=== PATIENT | female | born 1995 | race Caucasian/White ===

== ENCOUNTER 2020-02-16 18:11 | Outpatient (REF) | payer MEDICAID, SELFPAY ==
[2020-02-16 13:17] LABS: HCG Quant, Pregnancy < 1 mIU/mL (1-3)
== END 2020-02-16 18:31 ==
LOC: LBN 18:11
PROVIDERS: PCP Pediatrics; Visit Provider Nurse Practitioner Family
DX: N92.6 Irregular menstruation, unspecified (principal)
CPT/HCPCS: 84702

== ENCOUNTER 2020-05-20 09:54 | Outpatient (REF) | payer MEDICAID, SELFPAY ==
[2020-05-20 11:07] LABS: HCG Quant, Pregnancy < 1 mIU/mL (1-3)
== END 2020-05-20 10:14 ==
LOC: LBN 09:54
PROVIDERS: PCP Pediatrics; Visit Provider Nurse Practitioner Family
DX: N92.6 Irregular menstruation, unspecified (principal); Z32.00 Encounter for pregnancy test, result unknown
CPT/HCPCS: 84702

== ENCOUNTER 2020-12-01 11:16 | Emergency (ER) | payer MEDICAID, SELFPAY ==
[2020-12-01] VITALS (34 sets, daily range): BP systolic 99–130; BP diastolic 66–80; PULSE 74–97; RESP 18–20; TEMP 36.5–37.5; O2SAT 98–100
--- NOTE | 2020-12-01 11:25 | W.ED.GENAD ---
Discharge Plan Disposition Patient Disposition: HOME Condition: Stable Discharge Details Clinical Impression: Cellulitis of neck, Hypokalemia, Distal renal tubular acidosis, HANNY (acute kidney injury), Elevated hemoglobin A1c, Transaminitis Primary Care Provider: Charlie Cleary ED Provider: Rocio Jarvis Home Meds and New Rx's Prescriptions: New amoxicillin-pot clavulanate [Augmentin] 875-125 mg tablet 1 tab PO BID 6 Days Qty: 12 RF: 0 doxycycline hyclate 100 mg capsule 100 mg PO BID 6 Days Qty: 12 RF: 0 potassium chloride [K-Tab] 20 mEq tablet extended release 20 meq PO DAILY Qty: 14 RF: 0 Continued spironolactone 50 mg Tablet 50 mg PO DAILY RF: 0 Discontinued prenat.vits,edmar,[id number] Tablet 1 tab PO DAILY RF: 0 Discharge Instructions Instructions: Doxycycline (By mouth), Potassium Chloride (By mouth), Amoxicillin/Clavulanate Potassium (By mouth), Cellulitis (ED), Hypokalemia (ED), Diabetes and Nutrition (ED) Additional Instructions: The pain in your neck is consistent with a skin infection. Please take the Augmentin and the doxycycline as prescribed. Even if symptoms improve, please take the entire course. You may use Tylenol to help with your discomfort. Your potassium was notably low again today. This was replenished both orally and IV. I would like for you to begin a daily potassium supplement which was advised by nephrology. Please keep your upcoming nephrology appointment to discuss the renal tubular acidosis further. You also need to begin your baking soda regimen of 1 teaspoon/day once again and increase your potassium in your diet. You have an acute kidney injury. Please continue to encourage water intake. This will need to be rechecked this week. Your glucose and your A1c are both elevated which is consistent and concerning for diabetes. Referral to special educator has been sent. Please try to reduce sugar and carbohydrate intake. Exercise is information on the diet. This may also help with weight loss which will further help with diabetes. As discussed, the primary care and I have decided to hold off on beginning any medication until you are further evaluated by them this week. You are also noted to have elevated liver enzymes. You do have a hepatitis panel pending. This could be associated with a multitude of factors. This will also need to be reassessed by your primary care. Referral for primary care has been sent, I have asked that you be rechecked for both your cellulitis as well as your electrolyte abnormalities in the next few days. If you develop any new or worsening symptoms please seek care urgently once again. Discharge Data Discharge Date/Time-TO BE ENTERED AT DEPARTURE: 12/01/20 16:18 Medical Decision Making Patient is a pleasant 25-year-old female, accompanied by mom, with chief complaint of left-sided neck pain. Reports the pain began yesterday. Since that time, has been noticing increased discomfort and spreading of the pain. States it started as a spider bite. Reports that now in his spread laterally on the neck. Is having severe discomfort with any type of range of motion of the neck. No fevers or chills. No difficulty swallowing although she states that tipping her head up to drink is difficult. Has not had episode like this historically. Unclear past medical history, states she has a kidney disease, does not know what medications she is on. Reports that her kidney function is normal. Receives her care at [facility]. On exam, patient appears. Vital signs are stable. Patient is afebrile. She has an indurated area of erythema along the posterior lateral aspect of the neck that is approximately 8 cm long. At the most medial aspect of this, which is lateral to midline, patient does have a small opening appears to have been draining. Area was explored with US, no fluid collection to suggest abscess was identified. Concerned for where the infection my track. Will treat pain, obtain CT for further evaluation. Will also obtain baseline labs. Contacted by lab, K+ 2.2. Patient states that she has had hypokalemia histrocially and that this is attributed to her known kidney disease. Will correct hypokalemia. Will obtain ECG and consult with UV. Patient does not appear systemically ill. WBC sigfniciant for leukocytosis, WBC of 16. Creatinine 1.4, no previous for comparison. She states she receives care at [facility] but plans to transition care to here. Will request these records and scan into chart. She has transaminitis, glucose of 230. Patient states she had gestational diabetes. Delivered baby 1 year ago, states she has not been checked since then. Will add A1c Contacted [facility], they reviewed chart. Patient has hx of distal renal rubular acidosis. Will obtain VBG. Waiting for consultation from nephrology. ECG reviewed by Dr. Ward. He advises NSR, rate 84 with no acute abnormalities. VBG has pH 7.2. Patient is not tachypnic, appears comfortable. Discussed findings with ehpatient. She feels that this is chronic. Would like d/c to home ultimately as she has a young child at home. She lives with sigfnicant other. Consulted with Dr. Lieberman at [facility]. We discussed patients history, presentation, labs including abnormalities noted thus far. She advises that the patient diagnosed with a distal renal tubular acidosis. She advised the patient should be taking at least half a teaspoon of baking soda daily, as prescribed 50 mg spironolactone encouraged to have high potassium diet. She did advise that we could have the patient continue on a potassium supplementation. Patient is scheduled to see her assistant oceanographer, Dr. Soto, on December 03. She reports that in May 2020, patient did have a glucose of 202 at outside facility and a creatinine of 1.2. It is reassuring she believes that the patient's current presentation is likely her baseline is a chronic issue for her. She does not believe that any urgent intervention was warranted at this time. I discussed this with the patient. Patient has not been taking the baking soda as prescribed. She has been taking the spironolactone. Self reports that the her diet is not what it should be. She does report that she had gestational diabetes. Did not have any diabetic testing after delivery of her child a year ago. Is actively trying to conceive. A1c is elevated at 9.2. She states that while she was she did meet with the diabetic counselor but has not continued with this. Consulted with local primary care. We discussed presentation. Patient has cellulitis. Willchange antibiotics to something more renal protective. We discussed starting the patient on diabetic medication, will hold off at this time witih her other complications. Chart review from [facility] shows that patient has had elevated glucose since that time. This appears to be chronic and unchanged. Plan is for patient to be seen this week. I have asked care management to ensure close f/u. CT reviewed by radiologist: FINDINGS: Paranasal sinuses: Fluid and membrane thickening in the ethmoid sinuses and maxillary sinuses. Nasopharynx: Unremarkable. Oropharynx: Unremarkable. No significant tonsillar enlargement. Hypopharynx: Unremarkable. Larynx: Unremarkable. Normal epiglottis. Retropharyngeal space: Unremarkable. Submandibular/Parotid glands: Normal. Glands are normal in size. Thyroid: Normal. No enlarged or calcified nodules. Lymph nodes: There are normal-sized lymph nodes on both sides of the neck but they are slightly larger on the left, consistent with reactive change. Trachea: Visualized trachea is unremarkable. Lungs: Unremarkable as visualized. Bones/joints: Unremarkable. No acute fracture. Soft tissues: Subcutaneous and deep soft tissue edema in the left posterior neck at about the level of C2 through C4. No fluid collection is identified. More focal area of enhancing soft tissue thickening in the deep myofascial plane of the left occiput put best seen on axial series 4, image 504 and sagittal series 6, image 27, coronal series 5, image 63. This involves an area measuring approximately 1.5 by 0.6 by 1.1 cm. This is likely a more focal superficial lymph node. Other findings: Images are degraded by motion. IMPRESSION: 1. Soft tissue edema without fluid collection in the left posterior neck with normal-sized bilateral lymph nodes, slightly larger on the left consistent with reactive lymphadenopathy 2. Mild maxillary and ethmoid sinusitis Will transition patient to PO antibiotics, will use Doxycycline and Augmentin. Would like patient reassessed in the next 2-3 days. Stric t return precautions given. For her hypokalemia, she received 40mg PO and 20 IV. Will continue her on daily replenishment. She will continue spironolactone. Will begin 1tsp of baking soda a day. Potassium rich diet. Transaminitis, hepatitis panel pending. Patient is at low risk. No hx of IVDU. Drinks on special occassions. Diabetes, discussed dietary changes. She will f/u with PCP this week to discuss further. HAve referred to special educator as well. Acute kidney injury. [place] has had elevated creatinine based on chart review. Encouraged hydration and close f/u. No acute change in this. [place] was given strict return precautions. She needs to be reevaluated, particularly regarding her infection, in the next few days. All of her questions and concerns were addressed, she is in agreement with this plan. HPI General Mode of arrival: ambulatory. Date/Time Provider Initiated Documentation: 12/01/20 11:25. Limitations to Documentation: no limitations. Information obtained by: patient, family (mom) and RN notes reviewed. History of Present Illness 25 year old F presents to the emergency department with the chief complaint of spider bite on neck, described as severe, with intensity rated at 8. Quality is described as aching, and is localized to the neck. Patient reports no radiation. Patient started experiencing this day(s) (2) and it has been constant. No relieving factors improve symptom(s), No exacerbating factors reported . Patient notes no other symptoms., rash (erythema on neck) and other (intermittent muscle cramps in hands); denies chest pain, fever/chills, nausea/vomiting, shortness of breath and weakness. Patient did receive the following treatments prior to arrival, none Related Data Home Medications Medication Instructions Recorded Confirmed amoxicillin-pot clavulanate 1 tab PO BID 6 Days #12 tab 12/01/20 [Augmentin] doxycycline hyclate 100 mg PO BID 6 Days #12 cap 12/01/20 potassium chloride [K-Tab] 20 meq PO DAILY #14 tab 12/01/20 spironolactone 50 mg PO DAILY 12/01/20 12/01/20 Previous Rx's Medication Instructions Recorded amoxicillin-pot clavulanate 1 tab PO BID 6 Days #12 tab 12/01/20 [Augmentin] doxycycline hyclate 100 mg PO BID 6 Days #12 cap 12/01/20 potassium chloride [K-Tab] 20 meq PO DAILY #14 tab 12/01/20 Allergies Allergy/AdvReac Type Severity Reaction Status Date / Time No Known Allergies Allergy Verified 12/01/20 11:24 General Stated Complaint: Cellulitis BHASKAR: 4 Review of Systems Constitutional Constitutional: Reports as per HPI, Reports chills, Denies fever(s) and Denies headache(s) Eyes Eyes: Reports as per HPI, Denies eye discharge and Denies irritation ENT Ears, Nose, Mouth, and Throat: Reports as per HPI and Denies headache(s) Cardiovascular Cardiovascular: Reports as per HPI, Denies chest pain and Denies dyspnea Respiratory Respiratory: Reports as per HPI and Denies dyspnea Gastrointestinal Gastrointestinal: Reports as per HPI, Denies abdominal pain, Denies change in bowel habits, Denies nausea and Denies vomiting Integumentary/Breasts Skin/Breast: Reports as per HPI Neurologic Neurologic: Reports as per HPI and Denies headache(s) [facility] Surgical History Previous section 11/01/19 for breech Family History Father Well adult Mother Well adult Social History Smoking/Tobacco Use Status: Never Smoking risk assessment performed?: Yes Alcohol Intake: never Substance use type: does not use Exam Const General: cooperative, healthy appearing, uncomfortable, no acute distress, well developed and well groomed Nutritional Appearance: well nourished and overweight Orientation: alert and awake [facility] Head: normal to inspection, normocephalic and atraumatic Ears: hearing grossly normal bilaterally and external ears normal Face and sinus: normal facial exam Mouth: oral mucosae normal, lip normal, tongue normal, oropharynx normal and mucous membranes dry Teeth and gingiva: dentition normal Throat: posterior oropharynx normal, tonsils normal and uvula midline Eyes General: appearance normal, both eyes and all related structures Neck Neck: not normal to visual inspection, limited ROM (limited secondary to pain), no lymphadenopathy and no meningeal signs Neck images: 1. area of induration and erythema. Medially, there is a small opening that is not draining. No midline pain. ROM is limited secondary to pain. No lymphadenopathy Resp Effort & Inspection: normal respiratory effort, able to speak in complete sentences and no respiratory distress Auscultation: clear to auscultation bilaterally, no rales, no rhonchi and no wheezes Cardio Rate: regular rate Rhythm: regular rhythm Heart Sounds: S1 normal and S2 normal Skin General skin exam: erythema and induration Neuro General: patient alert and patient awake Cognition: normal cognition Speech: speech normal Gait: normal gait Psych Appearance: grossly normal and well kempt Mental Status: mental status grossly normal Speech and Movement: speech and movement normal Course Vital Signs Vital signs: Vital Signs Temperature 36.5 C 12/01/20 11:21 Pulse 97 H 12/01/20 11:21 Respiratory Rate 20 12/01/20 11:21 Blood Pressure 130/80 12/01/20 11:21 Pulse Oximetry 98 12/01/20 11:21 Temperature 36.5 C 12/01/20 11:21 Temperature Source Skin 12/01/20 11:21 Pulse 97 H 12/01/20 11:21 Respiratory Rate 20 12/01/20 11:21 Respiratory Effort Non-Labored 12/01/20 11:24 Blood Pressure 130/80 12/01/20 11:21 Blood Pressure Position Sitting 12/01/20 11:21 Pulse Oximetry 98 12/01/20 11:21 Oxygen Delivery Method Room Air 12/01/20 11:21 Oxygen Flow Rate 0 12/01/20 11:21 Pain Level 8 12/01/20 11:21
--- NOTE | 2020-12-01 11:30 | DI.CT_ITS ---
Exam(s) CT NECK W EXAM: CT NECK W CLINICAL HISTORY: infection left posterior neck. TECHNIQUE: Imaging Protocol: Axial computed tomography images with coronal and sagittal reformatted images were created and reviewed. CONTRAST MATERIAL: Intravenous: Omnipaque 350 Contrast volume:100 mL COMPARISON: No exams were available for comparison FINDINGS: The examination is limited due to patient motion artifact. Orbits and orbital soft tissues: Within normal limits. Visualized paranasal sinuses: There is opacification of a few ethmoid air cells. There is a small a mount of fluid in the maxillary sinuses bilaterally. The remaining visualized paranasal sinuses and mastoid air cells are clear. Nasopharynx: Within normal limits. Oropharynx: Within normal limits. Hypopharynx: Within normal limits. Larynx: Within normal limits. Retropharyngeal space: Within normal limits. Parotids/submandibular: Within normal limits. Thyroid gland: Within normal limits. Lymphadenopathy: Mildly enlarged lymph nodes in the left neck which are likely reactive. This includ es an enhancing lymph node in the posterior left neck. Trachea: Within normal limits. Lung apices: Within normal limits. Bones: Within normal limits. Carotids/Jugular: Within normal limits. Soft tissues: There is mild infiltration of the soft tissues of the posterior left neck. No focal fluid collection is seen to suggest an abscess. There is mild thickening of the skin. This likely r eflects cellulitis. IMPRESSION: 1. Cellulitis of the posterior left neck. No evidence of abscess. 2. Maxillary and ethmoid sinusitis. RADIATION DOSE DELIVERED: 550.99mGy.cm Total DLP 550.99mGy.cm Total DLP DATA REPOSITORY: All CT scans at this facility are submitted to the National Radiology Data Registry (NRDR) Dose Index Registry (DIR) with the [employer] ([employer]). RADIATION OPTIMIZATION: All CT scans at this facility use at least one of these dose optimization te chniques: automated exposure control; mA and/or kV adjustment per patient size (includes targeted exa ms where dose is matched to clinical indication); or iterative reconstruction.
[2020-12-01] MEDS: Normal Saline 1,000 ML 1000 ML IV (12:06)
[2020-12-01 12:10] LABS: Lactate 0.9 mmol/L (0.6-1.4)
[2020-12-01] MEDS: Sulfameth/Trimeth DS TAB 1 TAB PO (12:11)
[2020-12-01] MEDS: ceFAZolin 1 GM/50 ML BAG IVPB (12:12)
[2020-12-01 12:13] LABS: Abs Immature Grans 0.09 10^3/uL (0.0-0.06); Absolute Lymphocyte Count 1.97 10^3/uL (1.2-3.4); Absolute Monocyte Count 1.09 10^3/uL (0.1-0.8); Basophils % 0.4; Eosinophils % 0.6; HCT 44.6 % (36.0-46.0); Immature Grans % 0.5; MCH 28.1 pg (27.0-33.0); MCHC 33.6 % (32.0-36.0); MCV 83.7 fL (80-95); MPV 9.5 fL (8.0-11.0); Monocytes % 6.6; Neutrophils % 79.9; Nucleated RBC 0 %; Platelet Count 275 10^3/uL (130-400); RBC 5.33 10^6/uL (3.93-5.22); RDW 15.6 % (11.7-14.6); RDW-SD 46.7 fL; WBC 16.44 10^3/uL (4.4-10.8)
[2020-12-01 12:16] LABS: Absolute Basophil Count 0.07 10^3/uL (0.0-0.2); Absolute Neutrophil Count 13.14 10^3/uL (1.2-6.7)
[2020-12-01] MEDS: Ketorolac 30 MG/ML VIAL IVP (12:27)
--- NOTE | 2020-12-01 12:30 | RT.EKG_ITS ---
APPROVED REPORT Exam: Resting ECG Reason for Exam: hypokalemia Patient Location: E HR:84 bpm ECG Measurements Heart Rate 84 AXIS MO 185 P 74 QRSd 90 QRS 60 QT 385 T 40 QTc 456 Conclusion Sinus rhythm...normal P axis, V-rate 60- 99
[2020-12-01 12:35] LABS: ALT 118 U/L (14-59); AST 58 U/L (15-37); Albumin 3.8 g/dL (3.4-5.0); Alkaline Phosphatase 154 U/L (46-116); Anion Gap 16.7 mmol/L (3-11); BUN 13 mg/dL (7-18); Bilirubin, Total 0.6 mg/dL (0.2-1.0); CO2 16.3 mmol/L (21.0-32.0); CREATININE 1.4 mg/dL (0.55-1.02); Calcium 8.9 mg/dL (8.5-10.1); Chloride 105 mmol/L (98-107); Estimated GFR 45.45 (mL/min/1.73m2); Glucose 230 mg/dL (74-106); Sodium 138 mmol/L (136-145); Total Protein 8.7 g/dL (6.4-8.2)
[2020-12-01 12:37] LABS: Potassium 2.2 mmol/L (3.5-5.1)
[2020-12-01 12:57] LABS: BE (Venous) -14 mmol/L (-2-3); HCO3 (Venous) 14 mmol/L (23-28); O2 Sat (Venous) 48 %; TCO2 (Venous) 14 mmol/L (24-29); pCO2 (Venous) 37 mmHg (41-51); pO2 (Venous) 27 mmHg
[2020-12-01] MEDS: Potassium Chloride 20 MEQ TABCR 40 MEQ PO (13:09)
[2020-12-01 13:25] LABS: Hemoglobin A1C 9.2 % (<5.7)
[2020-12-01] MEDS: POTASSIUM CHLORIDE 20 MEQ/100 ML BAG 50 MEQ IVPB (13:41)
--- NOTE | 2020-12-01 13:57 | NUR.NOTE ---
Nursing Note: BHASKAR changed to level 2--low potassium with infusion and monitoring.
[2020-12-01] MEDS: Omnipaque 350 MG/ML 100 ML BTL IV (14:00)
[2020-12-01] MEDS: Normal Saline - Diluent 50 ML VIAL IV (14:00)
[2020-12-01] MEDS: Normal Saline Flush 10 ML SYR IVP (14:02)
[2020-12-01] MEDS: Normal Saline 1,000 ML 150 ML IV (14:07)
[2020-12-01 14:51] LABS: ALT 104 U/L (14-59); AST 51 U/L (15-37); Albumin 3.4 g/dL (3.4-5.0); Alkaline Phosphatase 131 U/L (46-116); Bilirubin, Direct 0.1 mg/dL (0.0-0.2); Bilirubin, Total 0.4 mg/dL (0.2-1.0); Total Protein 7.6 g/dL (6.4-8.2)
--- NOTE | 2020-12-01 14:52 | DI.VRAD_ITS ---
PROCEDURE INFORMATION: Exam: CT Neck With Contrast Exam date and time: 12/01/2020 11:49 AM Age: 25 years old Clinical indication: Other: Infection left posterior neck TECHNIQUE: Imaging protocol: Computed tomography images of the neck with contrast. Contrast material: OMNIPAQUE 350; Contrast volume: 100 ml; Contrast route: INTRAVENOUS (IV); COMPARISON: No relevant prior studies available. FINDINGS: Paranasal sinuses: Fluid and membrane thickening in the ethmoid sinuses and maxillary sinuses. Nasopharynx: Unremarkable. Oropharynx: Unremarkable. No significant tonsillar enlargement. Hypopharynx: Unremarkable. Larynx: Unremarkable. Normal epiglottis. Retropharyngeal space: Unremarkable. Submandibular/Parotid glands: Normal. Glands are normal in size. Thyroid: Normal. No enlarged or calcified nodules. Lymph nodes: There are normal-sized lymph nodes on both sides of the neck but they are slightly larger on the left, consistent with reactive change. Trachea: Visualized trachea is unremarkable. Lungs: Unremarkable as visualized. Bones/joints: Unremarkable. No acute fracture. Soft tissues: Subcutaneous and deep soft tissue edema in the left posterior neck at about the level of C2 through C4. No fluid collection is identified. More focal area of enhancing soft tissue thickening in the deep myofascial plane of the left occiput put best seen on axial series 4, image 504 and sagittal series 6, image 27, coronal series 5, image 63. This involves an area measuring approximately 1.5 by 0.6 by 1.1 cm. This is likely a more focal superficial lymph node. Other findings: Images are degraded by motion. IMPRESSION: 1. Soft tissue edema without fluid collection in the left posterior neck with normal-sized bilateral lymph nodes, slightly larger on the left consistent with reactive lymphadenopathy 2. Mild maxillary and ethmoid sinusitis Dictated and Authenticated by: Isabella Falk MD. Ordering:JORDANA Chan MD
--- NOTE | 2020-12-01 15:56 | NUR.NOTE ---
Nursing Note: Referral given to Care Management to get an appt with the clinical unit educator. Referral given to Care Management for follow up within 2 - 3 days for cellulitis neck/acidosis/hypokalemia/acute kidney injury/transaminitis/new dx diabetes with a new PCP. Amanda Alfaro
[2020-12-01] MEDS: Doxycycline Hyclate 100 MG, 2 CAPS/BTL PO (16:08)
[2020-12-01] MEDS: Potassium Chloride 20 MEQ TABCR PO (16:09)
[2020-12-01] MEDS: Amox. 875/Clav. 125, 2 TABS/BTL 1 TAB PO (16:09)
[2020-12-03 11:27] LABS: Hepatitis A Antibody IgM Negative (Negative); Hepatitis B Core Antibody Negative (Negative); Hepatitis B surface Ag Negative (Negative); Hepatitis C Ab w Rflx HCV PCR Negative (Negative)
== END 2020-12-01 16:18 | disposition home or self-care (01) ==
PROVIDERS: Emergency Provider Physician Assistant; PCP Pediatrics
DX: S10.86XA Insect bite of other specified part of neck, initial encounter (principal); L03.221 Cellulitis of neck; W57.XXXA Bitten or stung by nonvenomous insect and other nonvenomous arthropods, initial encounter; N25.89 Other disorders resulting from impaired renal tubular function; N17.9 Acute kidney failure, unspecified; E87.6 Hypokalemia; R73.09 Other abnormal glucose; R74.01 Elevation of levels of liver transaminase levels
CPT/HCPCS: 36415; 70491; 80053; 80076; 81025; 82805; 86704; 86709; 86803; 87340; 93005; 96361; 96365; 96366; 96367; 96375; 99285; 83036; 83605; 85025; 93010; 99284; J0690; J1885; J3480; J3490

== ENCOUNTER 2020-12-04 11:29 | Observation (INO) | payer MEDICAID, SELFPAY ==
[2020-12-04] VITALS (11 sets, daily range): BP systolic 91–127; BP diastolic 54–89; PULSE 75–94; RESP 15–24; TEMP 36.3–36.8; O2SAT 97–100; BMI 33.5
--- NOTE | 2020-12-04 11:43 | HPE_ITS ---
Date of service: 12/04/20 Time of Service: 11:43 Assessment and Plan Assessment and plan (1) Cellulitis of neck: Status: Acute (2) Hypokalemia: Status: Acute (3) Distal renal tubular acidosis: Status: Acute (4) HANNY (acute kidney injury): Status: Acute (5) Elevated hemoglobin A1c: Status: Acute (6) Neck abscess: Status: Acute Assessment and plan: Patient is being admitted to the hospital. -She will be started on antibiotics. -She will need to go to the OR for incision and drainage. Informed consent is obtained explaining risks and benefits of the procedure including but not limite d to: Bleeding, infection, pneumonia, blood clots, complications of anesthesia. It will leave a scar. We will need to pack a new dressing changes and heal by secondary intent. -We also need to get her blood sugars under better control. -We will address her electrolyte abnormalities and follow her kidney issues History of Present Illness Consults Consult date: 12/04/20 Narrative: ED Visit Note PATIENT NAME: Odalis Alatorre #: [id number] ADMITTING PROVIDER: Rocio Jarvis [facility] #: [id number] PRIMARY CARE PROVIDER:JACKSON MARKS MD DATE OF ADMIT: 12/01/20 : 1995 Discharge Plan Disposition Patient Disposition: HOME Condition: Stable Discharge Details Clinical Impression: Cellulitis of neck, Hypokalemia, Distal renal tubular acidosis, HANNY (acute kidney injury), Elevated hemoglobin A1c, Transaminitis Primary Care Provider: Jackson Marks ED Provider: Rocio Jarvis Home Meds and New Rx's Prescriptions: New amoxicillin-pot clavulanate [Augmentin] 875-125 mg tablet 1 tab PO BID 6 Days Qty: 12 RF: 0 doxycycline hyclate 100 mg capsule 100 mg PO BID 6 Days Qty: 12 RF: 0 potassium chloride [K-Tab] 20 mEq tablet extended release 20 meq PO DAILY Qty: 14 RF: 0 Continued spironolactone 50 mg Tablet 50 mg PO DAILY RF: 0 Discontinued prenat.vits,edmar,uav-[id number]-frpmk Tablet 1 tab PO DAILY RF: 0 From ED 12/01 Patient was seen in the office today regarding abscess on her left neck. And has not improved since she was seen in the ER. She said she has been having fever and chills at home. She has been taking her antibiotics faithfully. It is sore and painful. She is running a temperature at home. Her A1c is 9.2. [facility] internal has elected not to treat this until her abscess is resolved. However I think this is contributing to the nonhealing/continued infection/ abscess, and needs to be addressed. She also has renal tubular acidosis and is on spironolactone for this. She saw her senior medical transcriptionist at [facility] via telehealth for this. She has no known drug allergies. Medications include: Augmentin, doxycycline, severe lactone. She is a non-smoker. Her only prior surgery is a . She had no problems with anesthesia. She has not had anything to eat or drink today. Review of Systems Unobtainable due to (Review of systems as stated in HPI. All other review of systems are negati) Constitutional Constitutional: Reports as per HPI, Reports system reviewed and no additional complaints, except as documented, Reports anorexia, Reports body ache(s), Reports chills, Reports difficulty sleeping, Reports fatigue, Reports fever(s), Reports headache(s), Reports lethargy, Reports malaise, Denies poor appetite, Denies weakness and Reports weight loss Comments: Review of system is as stated in HPI. Please disregard all other sangeeta ckmarks in review of systems in the computer Eyes Eyes: Reports as per HPI, Reports system reviewed and no additional complaints, except as documented and Denies change in vision ENT Ears, Nose, Mouth, and Throat: Reports system reviewed and no additional complaints, except as documented, Reports as per HPI, Denies change in voice, Denies dental pain, Denies dysphagia, Denies dizziness, Denies facial pain, Reports headache(s) and Denies odynophagia Cardiovascular Cardiovascular: Reports as per HPI, Reports system reviewed and no additional complaints, except as documented, Denies chest pain, Denies chest pain with activity, Denies syncope, Denies leg edema and Denies dyspnea Respiratory Respiratory: Reports as per HPI, Reports system reviewed and no additional complaints, except as documented, Denies chest congestion, Denies cough, Denies pain with cough and Denies dyspnea Gastrointestinal Gastrointestinal: Reports as per HPI, Reports system reviewed and no additional complaints, except as documented, Denies abdominal pain, Denies bloating, Denies change in bowel habits, Denies change in stool character, Denies constipation, Denies cramping, Denies dysphagia, Denies early satiety, Denies heartburn, Denies diarrhea, Denies nausea, Denies odynophagia and Denies vomiting Musculoskeletal Musculoskeletal: Reports system reviewed and no additional complaints, except as documented, Reports as per HPI, Denies abnormal gait, Denies arthralgias and Denies muscle weakness Integumentary/Breasts Skin/Breast: Reports system reviewed and no additional complaints, except as documented, Reports as per HPI, Denies changing lesions, Denies new lesions and Denies jaundice Neurologic Neurologic: Reports system reviewed and no additional complaints, except as docu mented, Reports as per HPI, Denies abnormal speech, Denies abnormal gait, Denies dizziness, Denies syncope, Reports headache(s), Denies memory loss and Denies weakness Psychiatric Psychiatric: Reports system reviewed and no additional complaints, except as documented, Reports as per HPI, Denies change in appetite and Denies memory loss Endocrine Endocrine: Reports fatigue, Denies polydipsia and Denies polyuria Hematologic/Lymphatic Hematologic/Lymphatic: Reports system reviewed and no additional complaints, except as documented, Denies easy bleeding and Denies easy bruising Allergic/Immunologic Allergic/Immunologic: Denies system reviewed and no additional complaints, except as documented, Reports as per HPI and Denies urticaria PFSH Surgical History Previous section 11/01/19 for breech Family History Father Well adult Mother Well adult Social History Smoking/Tobacco Use Status: Never Smoking risk assessment performed?: Yes Alcohol Intake: never Substance use type: does not use Do you feel safe at home: Yes Do you feel safe in your relationship?: Yes Meds Allergies and Home Medications Allergies Allergy/AdvReac Type Severity Reaction Status Date / Time No Known Allergies Allergy Verified 12/04/20 10:28 Home Medications Medication Instructions Recorded Confirmed Type amoxicillin-pot clavulanate 1 tab PO BID 6 Days #12 tab 12/01/20 12/04/20 Rx [Augmentin] doxycycline hyclate 100 mg PO BID 6 Days #12 cap 12/01/20 12/04/20 Rx potassium chloride [K-Tab] 20 meq PO DAILY #14 tab 12/01/20 12/04/20 Rx spironolactone 50 mg PO DAILY 12/01/20 12/04/20 History Exam Const General: cooperative, healthy appearing, comfortable, no acute distress, well developed and well groomed Nutritional Appearance: average body habitus and well nourished Orientation: alert, awake and oriented x3 [facility] Head: normal to inspection, normocephalic and atraumatic Ears: hearing grossly normal bilaterally and external ears normal General nose exam: external nose normal Face and sinus: normal facial exam and sinuses nontender Mouth: oral mucosae normal, lip normal, tongue normal and moist mucous membranes Teeth and gingiva: dentition normal Other: 3x1 firm raised fluid collection on the left lateral aspect of the neck with surrounding erythema/edema. It is very tender. Ultrasound shows it is fluid-filled. Patient appears very uncomfortable Eyes General: appearance normal, both eyes and all related structures Conjunctivae: conjunctivae normal Sclera: sclerae normal Pupils: PERRL Neck Neck: normal visual inspection and full ROM Chest Chest: normal inspection of the chest Resp Effort & Inspection: normal respiratory effort, able to speak in complete sentences, no cough, no nasal flaring, not tachypneic and no use of accessory muscles Auscultation: clear to auscultation bilaterally, no rales, no rhonchi and no wheezes Cardio Jugular venous pressure: no JVD Rate: regular rate Rhythm: regular rhythm GI Inspection: normal to inspection, no edema and non-distended Palpation: soft, no masses, nontender and No ascites Auscultation: normal bowel sounds Skin General skin exam: no rashes or lesions noted Trauma: no lacerations or abrasions Neuro General: patient alert, patient oriented x3, oriented, gait normal, moves all extremities, no focal motor deficits and CN's II-XI intact bilaterally Cognition: normal cognition Speech: speech normal Gait: normal gait Motor: muscle tone normal throughout Extrem General: normal to inspection, full ROM and no clubbing, cyanosis or edema Psych Appearance: grossly normal and well kempt Mental Status: mental status grossly normal Speech and Movement: speech and movement normal Affect: normal affect Results Labs Result diagrams: 12/04/20 11:50 12/04/20 11:50 Last Vital Signs Temp 36.3 C L 12/04/20 11:37 Pulse 93 H 12/04/20 11:37 Resp 17 12/04/20 11:37 BP 127/89 12/04/20 11:37 Pulse Ox 99 12/04/20 11:37
[2020-12-04 11:59] LABS: Abs Immature Grans 0.16 10^3/uL (0.0-0.06); Absolute Basophil Count 0.07 10^3/uL (0.0-0.2); Absolute Neutrophil Count 14.75 10^3/uL (1.2-6.7); Basophils % 0.4; HCT 43.2 % (36.0-46.0); Immature Grans % 0.9; Lymphocytes % 9.6; MCH 27.5 pg (27.0-33.0); MCHC 32.4 % (32.0-36.0); MCV 84.9 fL (80-95); MPV 9.5 fL (8.0-11.0); Monocytes % 5.5; Neutrophils % 82.6; Nucleated RBC 0 %; Platelet Count 304 10^3/uL (130-400); RBC 5.09 10^6/uL (3.93-5.22); RDW 15.8 % (11.7-14.6); RDW-SD 48.5 fL; WBC 17.86 10^3/uL (4.4-10.8)
[2020-12-04 12:00] LABS: Absolute Eosinophil Count 0.18 10^3/uL (0.0-0.7); Absolute Lymphocyte Count 1.71 10^3/uL (1.2-3.4); Absolute Monocyte Count 0.98 10^3/uL (0.1-0.8)
[2020-12-04 12:10] LABS: Source Nasal/Nares
[2020-12-04 12:11] LABS: ALT 47 U/L (14-59); AST 16 U/L (15-37); Albumin 3.4 g/dL (3.4-5.0); Alkaline Phosphatase 127 U/L (46-116); Anion Gap 17.3 mmol/L (3-11); BUN 19 mg/dL (7-18); Bilirubin, Total 0.3 mg/dL (0.2-1.0); CO2 13.7 mmol/L (21.0-32.0); CREATININE 1.2 mg/dL (0.55-1.02); Calcium 9.9 mg/dL (8.5-10.1); Chloride 108 mmol/L (98-107); Glucose 200 mg/dL (74-106); Sodium 139 mmol/L (136-145); Total Protein 8.3 g/dL (6.4-8.2)
[2020-12-04 12:13] LABS: Potassium 2.9 mmol/L (3.5-5.1)
[2020-12-04 12:15] LABS: INR 1.1 (0.9-1.1); Prothrombin Time 11.3 sec (9.3-11.0)
[2020-12-04 12:22] LABS: HCG Qual (Serum) Negative
[2020-12-04] MEDS: Lactated Ringers 1,000 ML 100 ML IV ×2 (12:51→18:29)
[2020-12-04] MEDS: ceFAZolin 2 GM/50 ML BAG IVPB ×2 (12:52→20:25)
[2020-12-04] MEDS: ACETAMINOPHEN 1,000 MG/100 ML BTL 400 MG IVPB ×2 (12:52→20:25)
[2020-12-04] MEDS: Ondansetron 4 MG/2 ML VIAL IVP (12:56)
[2020-12-04] MEDS: Normal Saline Flush 10 ML SYR IVP ×3 (12:57→20:25)
[2020-12-04 12:58] LABS: Lactate 0.9 mmol/L (0.6-1.4)
[2020-12-04 13:06] LABS: COVID-19 PCR Negative (Negative)
[2020-12-04 13:08] LABS: C-Reactive Protein 5.95 mg/dL (0.0-0.3); Magnesium 2.3 mg/dL (1.8-2.4)
--- NOTE | 2020-12-04 14:06 | ANES.PREOP_ITS ---
General Info Date of Service Date Performed: 12/04/20 Height: 5 ft 4 in Weight: 88.451 kg Body Mass Index (BMI): 33.5 Surgical Procedure: Operation Date: 12/04/20 16:10 Proposed Procedures Side Surgeon p Incision and Debridement Left lateral neck abscess Left Edwina Roe DO Meds Allergies and Home Medications Allergies Allergy/AdvReac Type Severity Reaction Status Date / Time No Known Allergies Allergy Verified 12/04/20 10:28 Home Medication Medication Instructions Recorded amoxicillin-pot clavulanate 1 tab PO BID 6 Days #12 tab 12/01/20 [Augmentin] doxycycline hyclate 100 mg PO BID 6 Days #12 cap 12/01/20 potassium chloride [K-Tab] 20 meq PO DAILY #14 tab 12/01/20 spironolactone 50 mg PO DAILY 12/01/20 Current Visit Medications: Current Medications Generic Name Dose Route Start Last Admin Trade Name Freq PRN Reason Stop Dose Admin Dimethicone/Zinc Oxide 0 gm 12/04/20 11:29 Lori Protect Cream 142 Gm Tube TP PRN PRN Gabapentin 300 mg 12/04/20 15:00 Gabapentin 300 Mg Cap PO 12/04/20 15:01 NOW ONE Ringer's Solution 1,000 mls @ 100 mls/hr 12/04/20 11:30 12/04/20 12:51 IV 100 mls/hr INFUSION DILIA Administration Sodium Chloride 500 mls @ 0 mls/hr 12/04/20 11:29 Saline 500ml Bag IV PRN PRN As Directed Cefazolin Sodium/Dextrose 2 gm in 50 mls @ 100 mls/hr 12/04/20 12:00 12/04/20 12:52 Ancef Duplex IVPB 100 mls/hr Q6H DILIA Administration Acetaminophen 1,000 mg in 100 mls @ 400 mls/hr 12/04/20 12:00 12/04/20 14:02 Ofirmev IVPB Infused Q8H DILIA Infusion Potassium Chloride 10 meq in 100 mls @ 100 mls/hr 12/04/20 14:15 IVPB 12/04/20 18:14 Q1H DILIA IV Miscellaneous Supplies 1 each 12/04/20 11:30 Iv Access IV DIRECTED DILIA Morphine Sulfate 2 mg 12/04/20 11:41 Morphine 2 Mg/Ml Syr IVP Q1H PRN PRN Ondansetron HCl 4 mg 12/04/20 11:41 12/04/20 12:56 Ondansetron 4 Mg/2 Ml Vial IVP 4 mg Q6H PRN PRN Administration Sodium Chloride 10 ml 12/04/20 13:00 Normal Saline Flush 10 Ml Syr IVP PRN PRN PFSH Active Problems Active Problems: Problem Status Onset Code Neck abscess L02.11 Cellulitis of neck L03.221 Hypokalemia E87.6 Distal renal tubular acidosis N25.89 HANNY (acute kidney injury) N17.9 Elevated hemoglobin A1c R73.09 Transaminitis R74.01 Previous section Z98.891 Hx of ectopic Z87.59 Surgical History Surgical History Previous section 11/01/19 for breech Tobacco Smoking/Tobacco Use Status: Never Alcohol Alcohol Intake: never Substance Use Substance use type: does not use Vital Signs and Lab Results Vital Signs Most Recent Vital Signs in EMR: Most Recent Vital Signs Temp Pulse Resp BP Pulse Ox 36.6 C 93 H 17 127/89 99 12/04/20 13:09 12/04/20 13:09 12/04/20 13:09 12/04/20 13:09 12/04/20 13:09 Lab Results Result Diagrams: 12/04/20 11:50 12/04/20 11:50 Blood Type / Crossmatch: No Data to Display Complete Blood Count: White Blood Count 17.86 10^3/uL (4.4-10.8) H 12/04/20 11:50 12/04/20 Red Blood Count 5.09 10^6/uL (3.93-5.22) 12/04/20 11:50 12/04/20 Hemoglobin 14.0 g/dL (11.2-15.7) 12/04/20 11:50 12/04/20 Hematocrit 43.2 % (36.0-46.0) 12/04/20 11:50 12/04/20 Platelet Count 304 10^3/uL (130-400) 12/04/20 11:50 12/04/20 Venous Blood Lactate 0.9 mmol/L (0.6-1.4) 12/04/20 12:30 12/04/20 Complete Metabolic Panel: Sodium Level 139 mmol/L (136-145) 12/04/20 11:50 12/04/20 Potassium Level 2.9 mmol/L (3.5-5.1) L 12/04/20 11:50 12/04/20 Chloride Level 108 mmol/L (98-107) H 12/04/20 11:50 12/04/20 Carbon Dioxide Level 13.7 mmol/L (21.0-32.0) L 12/04/20 11:50 12/04/20 Blood Urea Nitrogen 19 mg/dL (7-18) H 12/04/20 11:50 12/04/20 Creatinine 1.2 mg/dL (0.55-1.02) H 12/04/20 11:50 12/04/20 Estimated GFR/1.73 m2 54.30 (mL/min/1.73m2) 12/04/20 11:50 12/04/20 Magnesium Level 2.3 mg/dL (1.8-2.4) 12/04/20 12:30 12/04/20 Calcium Level 9.9 mg/dL (8.5-10.1) 12/04/20 11:50 12/04/20 Albumin 3.4 g/dL (3.4-5.0) 12/04/20 11:12/04/20 Glucose Level 200 mg/dL (74-106) H 12/04/20 11:50 12/04/20 Hemoglobin A1c 9.2 % (<5.7) H 12/01/20 12:12/01/20 C-Reactive Protein 5.95 mg/dL (0.0-0.3) H 12/04/20 12:30 12/04/20 Liver Function Panel: Alanine Aminotransferase (ALT/SGPT) 47 U/L (14-59) 12/04/20 11:50 12/04/20 Aspartate Amino Transf (AST/SGOT) 16 U/L (15-37) 12/04/20 11:50 12/04/20 Coagulation Panel: INR International Normalized Ratio 1.1 (0.9-1.1) 12/04/20 11:50 12/04/20 Prothrombin Time 11.3 sec (9.3-11.0) H 12/04/20 11:50 12/04/20 Cardiac Panel: No Data to Display Arterial Blood Gas: No Data to Display Venous Blood Gas: Venous Blood pH 7.20 (7.31-7.41) L 12/01/20 12:55 12/01/20 Venous Blood Partial Pressure O2 27 mmHg 12/01/20 12:55 12/01/20 Venous Blood Partial Pressure CO2 37 mmHg (41-51) L 12/01/20 12:55 12/01/20 Venous Blood Oxygen Saturation 48 % 12/01/20 12:55 12/01/20 Venous Blood HCO3 14 mmol/L (23-28) L 12/01/20 12:55 12/01/20 Venous Blood Base Excess -14 mmol/L (-2-3) L 12/01/20 12:55 12/01/20 Venous Blood Total Carbon Dioxide 14 mmol/L (24-29) L 12/01/20 12:55 12/01/20 Pancreas Panel: No Data to Display Thyroid Panel: No Data to Display Infectious Disease: Coronavirus (COVID-19)(PCR) Negative (Negative) 12/04/20 12:05 12/04/20 Coronavirus 2019 Source Nasal/nares 12/04/20 12:05 12/04/20 Hepatitis B Surface Antigen Negative (Negative) 12/01/20 12:06 12/01/20 Hepatitis C Antibody Negative (Negative) 12/01/20 12:06 12/01/20 Blood Cultures: No Data to Display Toxicology Panel: No Data to Display Panel: Serum HCG, Qualitative Negative 12/04/20 11:50 12/04/20 Imaging and Studies Imaging and Studies EKG Summary: Sinus rhythm...normal P axis, V-rate 60- 99 Anesthesia Assessment and Plan Anesthesia History Personal History: No History of Anesthesia Complications Family History: No Family History of Anesthesia Complications Exercise Tolerance Exercise Tolerance: Metabolic Equivalents>4 Pertinent Negatives Pertinent Negatives: No Symptoms of GERD (Well controlled ), No Major Ca rdiovascular Symptoms or Complaints, No Major Pulmonary Symptoms or Complaints (Pt state she is recovering from cold ), No History of CVA/TIA and Other (Acute Tubular Acidosis, Elevated A1C, hypokalemia ) Cardiac & Pulmonary Exam Cardiac Exam: Normal S1/S2 Heart Sounds Pulmonary Exam: Clear Bilateral Breath Sounds Airway Exam Known Difficult Airway: No Mallampati Class: 3 Mouth Opening: Normal (> 3cm) Thyromental Distance: Less than 3 cm Neck Range of Motion: Full ROM Neck Circumference: Thick Teeth Condition: Normal Dentition ASA Classification ASA Score: ASA 2 Emergency Case?: Yes NPO Status NPO Status: NPO Clears >2 hours, Solids >8 hours Status Status: Negative HCG Anesthesia Plan Resuscitation Status: Full Code Anesthesia Technique: General Anesthesia Airway Planned: Endotracheal Tube Monitors Used: Standard Monitors Preoperative Comments:: Spoke to pt about plan for GA with natural airway or ETT dependent on positioning
[2020-12-04] MEDS: POTASSIUM CHLORIDE 10 MEQ/100 ML BAG 100 MEQ IVPB ×4 (14:17→18:58)
[2020-12-04] MEDS: Gabapentin 300 MG CAP PO (14:53)
[2020-12-04 14:59] LABS: Bilirubin Negative (Negative); Blood Moderate (Negative); Clarity Clear (Clear); Glucose Negative (Negative); Ketones Negative (Negative); Leukocyte Esterase Trace (Negative); Nitrite Negative (Negative); Urobilinogen 0.2 EU/dL (Up TO 0.2)
[2020-12-04 15:13] LABS: Bacteria Few HPF (Negative); C & S Indicated? Yes; Casts Negative LPF (Negative); Crystals Negative HPF (Negative); Epithelial Cells Few HPF (Negative); Mucus Negative (Negative); RBC 0-2 HPF (0-2); WBC 20-50 HPF (0-5)
--- NOTE | 2020-12-04 17:30 | W.PM.OP ---
Date of service: 12/04/20 Time of Service: 17:31 Operative Note Operative Note DATE OF PROCEDURE: 12/04/20 PRE-OP DIAGNOSIS: soft tissue abscess left enck POST-OP DIAGNOSIS: same PROCEDURE: I&D SURGEON: Edwina Roe ANESTHESIA TYPE: Local By Surgeon and General LMA/ETT Refer to Anesthesia Record ESTIMATED BLOOD LOSS: 10 PATHOLOGY: other COMPLICATIONS: None Patient was transported to: PACU Patient's condition: stable Procedure Description: [id number] Patient had been seen earlier in the office today for a soft tissue abscess and is being brought to the OR for incision and drainage. Ultrasound was done in the office some free fluid is noted. She is marked in preop. Informed consent is obtained explaining risks and benefits of the procedure including but not limited to: Bleeding, infection, pneumonia, blood clots, we will leave the scar. She will need to heal by secondary intent. She will need to do dressing/packing. Possible complications of anesthesia. And other unforetold complications. Patient is brought to the operating room suite. Anesthesia is admitted per the department of anesthesia. Patient is then placed in the right lateral decubitus position with all bony surfaces padded. Patient prepped and draped in usual sterile fashion using ChloraPrep scrub solution. Timeout is performed. She is getting preop Ancef. She does not give a history of MRSA or prior soft tissue infections. Her A1c is 9.6. 30 cc of quarter percent Marcaine with epi is used for local anesthetization. At the very most medial aspect of the incision there is a open draining sinus. This area is excised and the incision is carried laterally for approximately a 2 inch incision. Copious amount of purulent drainage is removed. Cultures are sent. A curette is used to excise the necrotic/nonviable tissue. It is confined to be subcutaneous tissues and does not involve the fascia or the muscle. Is irrigated with 3 L of saline. Electrocautery is used to provide hemostasis. It is packed with 1 inch packing material. Sterile dressing is applied. Patient tolerated procedure well without complication and transferred to recovery room in stable condition. The total size of the abscess is 10 x 5 x 3 cm.
--- NOTE | 2020-12-04 17:44 | W.ANESPOSTOP ---
Postoperative Evaluation Date, Time and Location Date Performed: 12/04/20 Time Performed: 17:44 Patient Location: PACU Vital Signs Most Recent Imported Vital Signs: Most Recent Vital Signs Temp Pulse Resp BP Pulse Ox 36.6 C 93 H 24 127/82 100 12/04/20 17:35 12/04/20 17:35 12/04/20 17:35 12/04/20 17:35 12/04/20 17:35 Pain Score Most Recent Pain Score: Most Recent Pain Score Pain Level 7 12/04/20 17:35 Assessment Mental Status: Awake (Alert & Oriented to Patient Baseline) Airway and Respiratory Function: Patent airway with normal (patient baseline) respiratory exam Cardiovascular Function: Hemodynamically Stable Hydration Status: Adequately Hydrated Nausea & Vomiting: No Nausea or Vomiting Pain: Pain is Moderate or Severe Postoperative Pain Management: Ongoing pain, patient will be managed as an inpatient Peripheral Nerve Block: Patient did not receive a nerve block
[2020-12-04] MEDS: Ketorolac 15 MG/ML VIAL IVP ×2 (18:27→23:54)
[2020-12-04] MEDS: VANCOMYCIN/WATER (PEG) 1.75 GM/350 ML BAG IVPB (18:28)
[2020-12-05] VITALS (7 sets, daily range): BP systolic 94–114; BP diastolic 60–77; PULSE 72–78; RESP 16–18; TEMP 36.4–36.9; O2SAT 96–100
[2020-12-05] MEDS: ceFAZolin 2 GM/50 ML BAG IVPB ×4 (02:31→20:31)
[2020-12-05] MEDS: Normal Saline Flush 10 ML SYR IVP ×3 (04:13→18:32)
[2020-12-05] MEDS: VANCOMYCIN/WATER (PEG) 1 GM/200 ML BAG IV ×3 (04:13→23:32)
[2020-12-05] MEDS: ACETAMINOPHEN 1,000 MG/100 ML BTL 400 MG IVPB ×3 (04:13→19:56)
[2020-12-05] MEDS: traMADol 50 MG TAB PO ×2 (05:06→16:14)
[2020-12-05] MEDS: Ketorolac 15 MG/ML VIAL IVP ×4 (06:27→23:32)
[2020-12-05] MEDS: Spironolactone 50 MG TAB PO (07:40)
[2020-12-05] MEDS: metFORMIN 500 MG TAB PO (07:40)
[2020-12-05] MEDS: Enoxaparin 40 MG/0.4 ML SYR SC (07:41)
[2020-12-05 11:02] LABS: Potassium 2.8 mmol/L (3.5-5.1)
[2020-12-05] MEDS: Potassium Chloride Liquid 20 MEQ PKT 40 MEQ PO (14:10)
--- NOTE | 2020-12-05 14:48 | INITIAL_ITS ---
- If Service Date Differs Date of service: 12/05/20 Time of Service: 14:48 Care Management Initial Assess REASON FOR HOSPITALIZATION:: Abscess on left side of neck. PAST MEDICAL HISTORY/PAST SURGICAL HISTORY:: Medical History: Neck abscess, cellulitis of neck, hypokalemia, distal renal tubular acidosis, HANNY (acute kidney injury), elevated hemoglobin A1c, transaminitis, and history of ectopic . Surgical History: Previous section (11/01/19 for breech). PREVIOUS FUNCTIONAL STATUS/SOCIAL/FAMILY SUPPORTS:: Tea is a 25 year old female who lives in [place] with her boyfriend, Elliot, and her 1 year old daughter. 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 Elliot works on a farm and Tea occasionally helps him out with farm chores. She also enjoys going for walks and kayaking. She names her mom and boyfriend as supports. Tea is independent at baseline. CURRENT FUNCTIONAL STATUS:: Tea is laying in bed watching television when CM comes to meet with her. She is pleasant and easily engages in conversation. She shares that she misses her daughter and does not like being away from her. She hopes to be discharged home today. ADVANCE DIRECTIVES:: None on file. Has patient been provided with info about the portal/API?: Yes Did the patient sign up for the portal?: Yes CODE STATUS:: Full Code INSURANCE COVERAGE / FINANCIAL ISSUES:: Medicaid. CURRENT HOME/COMMUNITY SERVICES/EQUIPMENT:: None. PRIMARY CARE PHYSICIAN:: Beatriz Dc MD. POTENTIAL DISCHARGE NEEDS:: Follow up appointments with PCP and surgeon and discharge plan of care. PATIENT/FAMILY EDUCATION NEEDS:: Discharge instructions regarding limitations, activity, and medications. Discuss Ask Me Three and self management. ANTICIPATED BARRIERS TO DISCHARGE:: No anticipated barriers. TRANSPORTATION:: Via private vehicle with family. PLAN:: Anticipate Tea will be discharged home with no services when medically cleared by provider. She will follow up with her PCP, surgeon, and discharge plan of care as directed. She will be driven home by family via private vehicle when ready. CM will continue to follow.
--- NOTE | 2020-12-05 16:08 | W.PM.PROGNOT ---
Date of Service Date of service: 12/05/20 Time of Service: 16:09 Assessment and Plan Assessment and plan (1) Neck abscess: Status: Acute Assessment and plan: Continue antibiotics local wound care awaiting wound cultures awaiting CALLY wound dressing--ordered (2) Hypokalemia: Status: Acute Assessment and plan: repleted today recheck tomorrow (3) Distal renal tubular acidosis: Status: Chronic (4) HANNY (acute kidney injury): Status: Acute (5) Elevated hemoglobin A1c: Status: Chronic Assessment and plan: started on Metformin by Dr. Roe Subjective Subjective Patient reports: feels better, still having pain and tolerating a regular diet Interval history since last seen: The patient is feeling better overall. Her sleep was interrupted by nursing overnight. She is eager to go home. She denies BLANDON, dizziness, shortness of breath, chest or abdominal pain. She is tolerating a regular diet. Exam Const General: cooperative, healthy appearing, comfortable and no acute distress Neck Neck images: 1. minimal wendy-incisional erythema; wound widely open and packed; overlying dressing changed Resp Effort & Inspection: normal respiratory effort and able to speak in complete sentences Auscultation: clear to auscultation bilaterally Cardio Rate: regular rate Rhythm: regular rhythm Heart Sounds: S1 normal and S2 normal GI Palpation: soft and nontender Neuro General: patient alert, patient awake and patient oriented x3 Cognition: normal cognition Speech: speech normal Psych Appearance: grossly normal Mental Status: mental status grossly normal Speech and Movement: speech and movement normal Mood: congruent mood Affect: normal affect Attitude: cooperative Thought Process: normal Thought Content: normal Insight: insight good Judgment: judgment good Objective Last Vital Signs Temp 98.1 F 12/05/20 15:42 Pulse 72 12/05/20 15:42 Resp 17 12/05/20 15:42 BP 100/61 12/05/20 15:42 Pulse Ox 100 12/05/20 15:42 Laboratory Results - last 24 hr 12/05/20 10:44 Potassium 2.8 L*
--- NOTE | 2020-12-05 16:39 | PHA.REVIEW ---
Pharmacy Admission Review - Admission Clinical Review Neck abscess (Acute) Cellulitis of neck (Acute) Hypokalemia (Acute) HANNY (acute kidney injury) (Acute) No Known Allergies Allergy (Verified 12/04/20 10:28) Resuscitation Status Full Code Height 5 ft 4 in Weight 88.451 kg - Renal Dosing Renal Dosing: BUN 19 mg/dL (7-18) H D 12/04/20 11:50 Creatinine 1.2 mg/dL (0.55-1.02) H 12/04/20 11:50 Medications needing adjustments: Reviewed List of meds needing interventions: eCrCl 61.34 ml/min; renal tubular acidosis, HANNY - monitor, rechecking scr tomorrow AM along with vanco trough - Anticoagulation Anticoagulation: Hgb 14.0 g/dL (11.2-15.7) 12/04/20 11:50 Hct 43.2 % (36.0-46.0) 12/04/20 11:50 Plt Count 304 10^3/uL (130-400) 12/04/20 11:50 INR 1.1 (0.9-1.1) 12/04/20 11:50 Creatinine 1.2 mg/dL (0.55-1.02) H 12/04/20 11:50 DVT Prohphylaxis: Reviewed Medications: Enoxaparin - Opiate Usage Evaluate Pain Scale/Pains Meds: Reviewed Scheduled Bowel Reg ordered if on Opiates?: No (will notify ) - Relevant Labs Sodium 139 mmol/L (136-145) 12/04/20 11:50 Potassium 2.8 mmol/L (3.5-5.1) L* 12/05/20 10:44 Chloride 108 mmol/L (98-107) H 12/04/20 11:50 Magnesium 2.3 mg/dL (1.8-2.4) 12/04/20 12:30 C-Reactive Protein 5.95 mg/dL (0.0-0.3) H 12/04/20 12:30 Electrolytes, C-Reactive P, ESR: Reviewed (40 meq IV yesterday, 40 meq PO today) - DM Control DM Control: Glucose 200 mg/dL (74-106) H 12/04/20 11:50 Finger Stick Blood Glucose 159 Finger Stick Blood Glucose 159 Insulin Dosing: N/A (started on metformin 500mg po daily) - Heart Failure/VT EF%, MAURICIO's, B-Blockers, Diuretics: N/A - BP Control BP Control: Blood Pressure 100/61 Blood Pressure 114/77 Blood Pressure 94/60 If elevated: Reviewed - Qtc Review If Elevated: N/A - IV to PO Switch IV Medications: Reviewed - Home Meds Home Med List reviewed: Reviewed Relevent Home Meds Not ordered & why?: potassium - Current meds Current Medication Order Review: Reviewed - Comments Comments/Follow Ups: cefazolin 2g q6h plus vanco for abscess/cellulitis
[2020-12-06] MEDS: ceFAZolin 2 GM/50 ML BAG IVPB ×3 (01:24→14:16)
[2020-12-06] MEDS: ACETAMINOPHEN 1,000 MG/100 ML BTL 400 MG IVPB ×2 (03:08→12:41)
[2020-12-06 03:09] VITALS: BP 96/65; PULSE 71; RESP 20; TEMP 36.5; O2SAT 99
[2020-12-06] MEDS: Ketorolac 15 MG/ML VIAL IVP ×2 (05:31→12:42)
[2020-12-06] MEDS: Normal Saline Flush 10 ML SYR IVP ×3 (05:33→16:28)
[2020-12-06 07:00] LABS: Abs Immature Grans 0.12 10^3/uL (0.0-0.06); Absolute Basophil Count 0.03 10^3/uL (0.0-0.2); Absolute Eosinophil Count 0.14 10^3/uL (0.0-0.7); Absolute Lymphocyte Count 1.71 10^3/uL (1.2-3.4); Absolute Monocyte Count 0.76 10^3/uL (0.1-0.8); Absolute Neutrophil Count 5.77 10^3/uL (1.2-6.7); Basophils % 0.4; Eosinophils % 1.6; HCT 39.2 % (36.0-46.0); HGB 12.9 g/dL (11.2-15.7); Immature Grans % 1.4; MCHC 32.9 % (32.0-36.0); MPV 9.8 fL (8.0-11.0); Monocytes % 8.9; Neutrophils % 67.7; Nucleated RBC 0 %; Platelet Count 277 10^3/uL (130-400); RBC 4.61 10^6/uL (3.93-5.22); RDW 15.9 % (11.7-14.6); RDW-SD 49.5 fL; WBC 8.53 10^3/uL (4.4-10.8)
[2020-12-06 07:19] LABS: ALT 23 U/L (14-59); AST 39 U/L (15-37); Albumin 2.8 g/dL (3.4-5.0); Alkaline Phosphatase 106 U/L (46-116); BUN 18 mg/dL (7-18); Bilirubin, Total 0.2 mg/dL (0.2-1.0); CREATININE 1.5 mg/dL (0.55-1.02); Calcium 8.6 mg/dL (8.5-10.1); Chloride 111 mmol/L (98-107); Estimated GFR 41.97 (mL/min/1.73m2); Glucose 147 mg/dL (74-106); Potassium 3.1 mmol/L (3.5-5.1); Sodium 138 mmol/L (136-145); Total Protein 7.1 g/dL (6.4-8.2)
[2020-12-06 08:33] VITALS: BP 131/76; PULSE 77; RESP 18; TEMP 36.4; O2SAT 98
[2020-12-06] MEDS: metFORMIN 500 MG TAB PO (08:52)
[2020-12-06] MEDS: Enoxaparin 40 MG/0.4 ML SYR SC (08:52)
[2020-12-06] MEDS: Spironolactone 50 MG TAB PO (08:53)
[2020-12-06 09:44] LABS: CREATININE 1.4 mg/dL (0.55-1.02); Estimated GFR 45.45 (mL/min/1.73m2)
[2020-12-06 09:53] LABS: Vancomycin, Trough 33.7 ug/mL (10.0-20.0)
[2020-12-06 11:42] VITALS: BP 120/76; PULSE 79; RESP 18; TEMP 36.9; O2SAT 99
[2020-12-06 12:41] VITALS: TEMP 36.9
--- NOTE | 2020-12-06 15:06 | CHAPLAIN ---
I had a brief visit with Tea. She said her mom has been into visit, but her one-year old daughter isn't allowed to be cause the family isn't vaccinated. Tea said [place] so we don't need to be vaccinated.
--- NOTE | 2020-12-06 15:52 | W.PM.PROGNOT ---
Date of Service Date of service: 12/06/20 Time of Service: 15:53 Assessment and Plan Assessment and plan (1) Neck abscess: Status: Acute Assessment and plan: Continue antibiotics awaiting wound cultures CALLY dressing placed (2) Hypokalemia: Status: Acute Assessment and plan: repleted today recheck tomorrow (3) Distal renal tubular acidosis: Status: Chronic (4) HANNY (acute kidney injury): Status: Acute (5) Elevated hemoglobin A1c: Status: Chronic Assessment and plan: started on Metformin by Dr. Roe Subjective Subjective Patient reports: feels better, tolerating a regular diet and afebrile; denies nausea and vomiting Interval history since last seen: She feels well. Is eager to go home. No new complaints. ELIZABETH Kwok placed a CALLY dressing over the wound today. Exam Const General: cooperative, healthy appearing, comfortable and no acute distress Orientation: alert, awake and oriented x3 Neck Lymphatic: no lymphadenopathy noted Neck images: 1. decreased cellulitis/erythema; packing removed, base clean; CALLY dressing placed Resp Effort & Inspection: normal respiratory effort and able to speak in complete sentences GI Palpation: soft Neuro General: patient alert, patient awake and patient oriented x3 Cognition: normal cognition Speech: speech normal Psych Appearance: grossly normal Mental Status: mental status grossly normal Speech and Movement: speech and movement normal Attitude: cooperative and avoids eye contact Thought Content: normal Insight: insight good Objective Last Vital Signs Temp 98.4 F 12/06/20 12:41 Pulse 79 12/06/20 11:42 Resp 18 12/06/20 11:42 BP 120/76 12/06/20 11:42 Pulse Ox 99 12/06/20 11:42 Laboratory Results - last 24 hr 12/06/20 12/06/20 12/06/20 06:14 06:14 09:21 WBC 8.53 RBC 4.61 Hgb 12.9 Hct 39.2 MCV 85.0 MCH 28.0 MCHC 32.9 RDW 15.9 H Plt Count 277 MPV 9.8 Immature Gran % 1.4 Neutrophils % 67.7 Lymphocytes % 20.0 Monocytes % 8.9 Eosinophils % 1.6 Basophils % 0.4 Nucleated RBC % 0 Absolute Neutrophils 5.77 Absolute Lymphocytes 1.71 Absolute Monocytes 0.76 Absolute Eosinophils 0.14 Absolute Basophils 0.03 Sodium 138 Potassium 3.1 L Chloride 111 H Carbon Dioxide 9.0 L Anion Gap 18.0 H BUN 18 Creatinine 1.5 H 1.4 H Estimated GFR/1.73 m2 41.97 45.45 Glucose 147 H Calcium 8.6 Total Bilirubin 0.2 AST 39 H ALT 23 Alkaline Phosphatase 106 Total Protein 7.1 Albumin 2.8 L Vancomycin Trough 12/06/20 09:21 WBC RBC Hgb Hct MCV MCH MCHC RDW Plt Count MPV Immature Gran % Neutrophils % Lymphocytes % Monocytes % Eosinophils % Basophils % Nucleated RBC % Absolute Neutrophils Absolute Lymphocytes Absolute Monocytes Absolute Eosinophils Absolute Basophils Sodium Potassium Chloride Carbon Dioxide Anion Gap BUN Creatinine Estimated GFR/1.73 m2 Glucose Calcium Total Bilirubin AST ALT Alkaline Phosphatase Total Protein Albumin Vancomycin Trough 33.7 H*
--- NOTE | 2020-12-06 16:08 | PDOC.CMPRO ---
- If Service Date Differs Date of service: 12/06/20 Time of Service: 16:09 Care Management Progress Note S/O: Tea was lying in bed when CM met with her. She stated that she wants to be discharged. CM explained that per report, MD is awaiting sensitivities in order to determine her abx course prior to her returning home. 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 She is very anxious to be home. CM will continue to follow. A: Tea is a 25 year old female admitted to [facility] on 12/04/20 with abscess in her left neck. P: Anticipate Tea will be discharged home with no services when medically cleared by provider. She will follow up with her PCP, surgeon, and discharge plan of care as directed. She will be driven home by family via private vehicle when ready. CM will continue to follow.
[2020-12-06] MEDS: VANCOMYCIN/WATER (PEG) 1 GM/200 ML BAG IV (16:27)
--- NOTE | 2020-12-06 16:37 | DSE_ITS ---
Date of service: 12/06/20 Time of Service: 16:38 DS: Diagnosis Discharge Diagnosis (1) Neck abscess: Status: Acute Asessment and Plan: s/p incision and drainage of left posterior neck abscess (2) Hypokalemia: Status: Acute (3) Distal renal tubular acidosis: Status: Chronic (4) HANNY (acute kidney injury): Status: Acute (5) Elevated hemoglobin A1c: Status: Chronic (6) Cellulitis of neck: Status: Acute Discharge Plan Disposition Patient Disposition: HOME Condition: Good Discharge Details Reason For Visit: Abscess Left Neck Admit Date/Time: 12/04/20 11:29 Admit Provider: Edwina Roe Attending Provider: Edwina Roe Primary Care Provider: Beatriz Dc Hospital Course Hospital Course: This is a 25-year-old female who failed outpatient treatment of a left neck cellulitis, treated with Augmentin and doxycyline. She was seen in the surgical clinic and found to have subsequent abscess formation by ultrasound. She was taken to the operating room for incision and drainage by Dr. Roe on 12/04. Postoperatively, she has been doing well on vancomycin and Ancef. A CALLY negative pressure wound dressing was placed today to augment healing. Intra- operative cultures taken demonstrated rare staph aureus. Home Meds and New Rx's Prescriptions: No Action spironolactone 50 mg Tablet 50 mg PO DAILY RF: 0 amoxicillin-pot clavulanate [Augmentin] 875-125 mg tablet 1 tab PO BID 6 Days Qty: 12 RF: 0 doxycycline hyclate 100 mg capsule 100 mg PO BID 6 Days Qty: 12 RF: 0 potassium chloride [K-Tab] 20 mEq tablet extended release 20 meq PO DAILY Qty: 14 RF: 0 Discharge Instructions Instructions: Abscess Incision and Drainage (DC) Additional Instructions: Follow up with your primary care provider regarding glucose control. Follow up with general surgery clinic by phone on 12/09 Referrals: Beatriz Dc MD [Primary Care Provider] - (Please call Wednesday to make a follow up appointment ) Activity:: Activity as Tolerated Equipment/Supplies:: CALLY dressing Diet:: Carb Counting DS: Summary Time Spent with Patient providing and/or coordinating discharge services: Less than 30 minutes Status at Discharge Functional status at discharge: independent ambulation Overall status at discharge: patient is not back to baseline Mental Status: mental status grossly normal Speech and Movement: speech and movement normal Mood: congruent mood Affect: normal affect Exam Psych Mental Status: mental status grossly normal Speech and Movement: speech and movement normal Mood: congruent mood Affect: normal affect DS: Data Vitals/I&O Vitals and I&O: Vital Signs Temperature 98.4 F 12/06/20 12:41 Temperature Source Tympanic 12/06/20 11:42 Pulse 79 12/06/20 11:42 Pulse Rhythm Regular 12/06/20 02:20 Respiratory Rate 18 12/06/20 11:42 Respiratory Effort Non-Labored 12/06/20 02:20 Respiratory Depth Normal 12/06/20 02:20 Respiratory Pattern Normal 12/06/20 02:20 Blood Pressure 120/76 12/06/20 11:42 Pulse Oximetry 99 12/06/20 11:42 Respiratory End-tidal CO2 26 12/04/20 17:35 Oxygen Delivery Method Room Air 12/06/20 11:42 Oxygen Flow Rate 0 12/06/20 11:42 Pain Level 0 12/06/20 12:41 Comment 12/05/20 03:27 Intake & Output 12/05/20 12/06/20 12/06/20 23:59 11:59 23:59 Intake Total 880 / 1630 1160 / 1160 Balance 880 / 1630 1160 / 1160 Intake: IV 400 / 910 400 / 400 Oral 480 / 720 760 / 760 Other: Urine Appearance Clear Comment Patient uses toilet independently void x1 Voiding Methods Toilet Toilet Data Completed and Pending Labs on day of discharge: Labs from last 24 hours 12/06/20 12/06/20 12/06/20 09:21 09:21 06:14 WBC 8.53 RBC 4.61 Hgb 12.9 Hct 39.2 MCV 85.0 MCH 28.0 MCHC 32.9 RDW 15.9 H Plt Count 277 MPV 9.8 Immature Gran % 1.4 Neutrophils % 67.7 Lymphocytes % 20.0 Monocytes % 8.9 Eosinophils % 1.6 Basophils % 0.4 Nucleated RBC % 0 Absolute Neutrophils 5.77 Absolute Lymphocytes 1.71 Absolute Monocytes 0.76 Absolute Eosinophils 0.14 Absolute Basophils 0.03 Sodium Potassium Chloride Carbon Dioxide Anion Gap BUN Creatinine 1.4 H Estimated GFR/1.73 m2 45.45 Glucose Calcium Total Bilirubin AST ALT Alkaline Phosphatase Total Protein Albumin Vancomycin Trough 33.7 H* 12/06/20 06:14 WBC RBC Hgb Hct MCV MCH MCHC RDW Plt Count MPV Immature Gran % Neutrophils % Lymphocytes % Monocytes % Eosinophils % Basophils % Nucleated RBC % Absolute Neutrophils Absolute Lymphocytes Absolute Monocytes Absolute Eosinophils Absolute Basophils Sodium 138 Potassium 3.1 L Chloride 111 H Carbon Dioxide 9.0 L Anion Gap 18.0 H BUN 18 Creatinine 1.5 H Estimated GFR/1.73 m2 41.97 Glucose 147 H Calcium 8.6 Total Bilirubin 0.2 AST 39 H ALT 23 Alkaline Phosphatase 106 Total Protein 7.1 Albumin 2.8 L Vancomycin Trough Preliminary micro results at discharge 12/04/20 13:04 Blood Culture - Preliminary Blood NO GROWTH 48 HOURS 12/04/20 12:30 Blood Culture - Preliminary Blood NO GROWTH 48 HOURS 12/04/20 16:45 Anaerobic Culture - Preliminary Neck - Left 12/04/20 16:45 Abscess Culture - Preliminary Neck - Left Staphylococcus Aureus PFSH Surgical History Previous section 11/01/19 for breech Family History Father Well adult Mother Well adult Social History Smoking/Tobacco Use Status: Never Smoking risk assessment performed?: Yes Alcohol Intake: never Substance use type: does not use Do you feel safe at home: Yes Do you feel safe in your relationship?: Yes
== END 2020-12-06 18:30 | disposition home or self-care (01) ==
LOC: MS 12:21
PROVIDERS: Physical Therapy Assistant; Surgery; Admitting Provider Surgery; PCP Internal Medicine; Visit Provider Surgery
PROC: (CPT 10060; principal; 2020-12-04 16:00)
DX: L02.11 Cutaneous abscess of neck (principal); L03.221 Cellulitis of neck; E87.6 Hypokalemia; N17.0 Acute kidney failure with tubular necrosis; Z20.822 Contact with and (suspected) exposure to COVID-19; N25.89 Other disorders resulting from impaired renal tubular function
CPT/HCPCS: 10060; 36415; 80053; 87040; 87077; 87635; J1650; 80202; 81003; 81015; 82565; 83605; 83735; 84132; 84703; 85025; 85610; 86140; 87070; 87075; 87086; 87186; 87205; G0378; J0131; J0690; J1100; J1885; J2001; J2405; J2704; J3480

== ENCOUNTER 2020-12-14 22:02 | Inpatient (IN) | payer MEDICAID, SELFPAY ==
[2020-12-14 22:11] VITALS: BP 131/72; PULSE 98; RESP 18; TEMP 36.7; O2SAT 99
[2020-12-14 22:15] VITALS: RESP 16
--- NOTE | 2020-12-14 22:15 | RT.EKG_ITS ---
APPROVED REPORT Exam: Resting ECG Reason for Exam: possible hypokalemia Patient Location: E HR:76 bpm ECG Measurements Heart Rate 76 AXIS AK 210 P 86 QRSd 100 QRS 52 QT 549 T 37 QTc 618 Conclusion Sinus rhythm...normal P axis, V-rate 60- 99 Prolonged AK interval...AK >210, V-rate 50- 90 Prolonged QT interval...QTc >495mS
[2020-12-14 22:30] VITALS: BP 117/70; PULSE 84; RESP 12; O2SAT 99
--- NOTE | 2020-12-14 22:35 | W.ED.GENAD ---
Discharge Plan Discharge Details Chief Complaint: GenMedical Admit Date/Time: 12/15/20 00:00 Admit Provider: Raz Saeed Attending Provider: Raz Saeed Primary Care Provider: Myron Worrell ED Provider: Noni Bui Discharge Data Discharge Date/Time-TO BE ENTERED AT DEPARTURE: 12/15/20 02:40 Medical Decision Making 25-year-old female presents to the ER with chief complaint of frequent falls, muscle spasm. She has a past medical history of distal renal tubular acidosis and recent neck abscess surgery on December 04, 2020. She was seen by PCP 48 hours ago and was feeling fine at that time. Symptoms began this morning. She reports muscle seizing up and falling 3 times today. She also reports palpitations. Denies any fever chills nausea vomiting diarrhea. She did take a total of 60 mEq of potassium p.o. prior to arrival, baking soda prior to arrival. She does have muscle spasms to bilateral lower extremities with movement and bilateral upper extremities. At this time CBC, CMP 5 mg of Valium and EKG is ordered. She is currently ongoing for a renal follow-up at [facility] by PCP. White blood cell count of 18.31, RDW for 15.4 absolute neutrophils 13.49 potassium was critically low at 1.7 chloride is 109 carbon dioxide 12.0 anion gap 18 BUN 21 creatinine 1.2 GFR is 54 glucose was 249 magnesium is 2.5 AST is 54 ALT 81 alk phos is 126. 20 mEq potassium IV ordered at this time normal saline at 250 an hour. 12:07 AM: Spoke with Dr. Saeed who is on for hospitalist regarding patient case and details he agrees to accept patient for admission at this time for hypokalemia HPI General Mode of arrival: ambulatory. Date/Time Provider Initiated Documentation: 12/14/20 22:16. Limitations to Documentation: no limitations. Information obtained by: patient and family. HPI Narrative: 25-year-old female presents to the ER with chief complaint of frequent falls, muscle spasm. She has a past medical history of distal renal tubular acidosis and recent neck abscess surgery on December 04, 2020. She was seen by PCP 48 hours ago and was feeling fine at that time. Symptoms began this morning. She reports muscle seizing up and falling 3 times today. She also reports palpitations. Denies any fever chills nausea vomiting diarrhea. She did take a total of 60 mEq of potassium p.o. prior to arrival, baking soda prior to arrival. Related Data Home Medications Medication Instructions Recorded Confirmed potassium chloride [K-Tab] 20 meq PO DAILY #14 tab 12/01/20 12/15/20 spironolactone 50 mg PO DAILY 12/01/20 12/15/20 acetaminophen 500 mg tablet 1,000 mg PO Q6H PRN tab 12/12/20 12/15/20 blood sugar diagnostic #10 ea 12/12/20 12/15/20 lancets 33 gauge #100 ea 12/12/20 12/15/20 Previous Rx's Medication Instructions Recorded potassium chloride [K-Tab] 20 meq PO DAILY #14 tab 12/01/20 Allergies Allergy/AdvReac Type Severity Reaction Status Date / Time No Known Allergies Allergy Verified 12/14/20 22:15 General Stated Complaint: GenMedical BHASKAR: 3 Review of Systems Narrative: Constitutional: Negative for weight loss, alert and oriented, well groomed, normal body habitus, appears uncomfortable. Patient denies fever. HEENT: Denies trauma, headaches, blurry vision, nasal discharge, sore throat, trouble swallowing. Chest: Denies chest pain,irregular rhythm, hypertension. Positive palpitations. Respiratory: Denies Shortness of breath, cough, hemoptysis. GI: Denies abdominal pain, nausea, vomiting, diarrhea, constipation. : Denies dysuria, hematuria, flank pain, rectal bleeding. Musculoskeletal: Extremity cramping and freezing resulting in falls. Recent neck abscess surgery on December 04 there is an open wound noted to left lateral posterior neck healing by secondary intention. Neuro: Denies dizziness, blurry vision, weakness, syncope, headache or facial numbness. Hematologic: Denies easy bruising, intolerance to heat or cold, hair loss. [facility] Previous section 11/01/19 for breech Family History Father Well adult Mother Well adult Social History Smoking/Tobacco Use Status: Never Smoking risk assessment performed?: Yes Alcohol Intake: never Substance use type: does not use Do you feel safe at home: Yes Do you feel safe in your relationship?: Yes Exam Narrative Exam Narrative: Constitutional: Alert and oriented x3. Appears stated age. Normal body habitus. Head: Normocephalic, no trauma. Eyes: Pupils PERRLA, Red reflex noted, EOM's intact. Eyelids symmetrical without lesions, discharge, or swelling. ENT: Bilateral TM's WNL, External ear normal to inspection, no mastoid TTP, swelling, or erythema, Nasal turbinates WNL, no nasal discharge. Normal dentition, Posterior pharynx WNL, no exudate. Open wound approximately 2 cm x 2 cm to posterior lateral neck healing by secondary intention there is packing in place upon initial examination with green purulent drainage noted. No surrounding erythema or induration. Chest: RRR, Normal S1, S2, distal pulses intact. Resp: Lungs clear to auscultation bilaterally, no wheezes, rales, or rhonchi. Musculoskeletal: Unable to assess gait, muscle spasms noted with movement to legs and arms. Skin: No suspicious rashes or lesions. Capillary refill less than 2 sec. Neurologic: Cranial nerves II-XII intact. Alert and oriented x 3. DTR's Hematologic/Lymphatic: No ecchymosis, no lymphadenopathy. Course Vital Signs Vital signs: Vital Signs Temperature 36.7 C 12/14/20 22:11 Pulse 98 H 12/14/20 22:11 Respiratory Rate 18 12/14/20 22:11 Blood Pressure 131/72 12/14/20 22:11 Pulse Oximetry 99 12/14/20 22:11 Temperature 36.7 C 12/14/20 22:11 Pulse 98 H 12/14/20 22:11 Respiratory Rate 16 12/14/20 22:15 Respiratory Effort Non-Labored 12/14/20 22:15 Respiratory Depth Normal 12/14/20 22:15 Respiratory Pattern Normal 12/14/20 22:15 Blood Pressure 131/72 12/14/20 22:11 Pulse Oximetry 99 12/14/20 22:11 Pain Level 7 12/14/20 22:11
[2020-12-14 22:56] LABS: Abs Immature Grans 0.25 10^3/uL (0.0-0.06); Basophils % 0.4; Eosinophils % 0.8; HGB 13.1 g/dL (11.2-15.7); Immature Grans % 1.4; Lymphocytes % 17.6; MCH 27.8 pg (27.0-33.0); MCHC 34.5 % (32.0-36.0); MCV 80.5 fL (80-95); Monocytes % 6.1; Neutrophils % 73.7; Nucleated RBC 0 %; Platelet Count 386 10^3/uL (130-400); RBC 4.72 10^6/uL (3.93-5.22); RDW 15.4 % (11.7-14.6); RDW-SD 43.7 fL; WBC 18.31 10^3/uL (4.4-10.8)
[2020-12-14 22:59] LABS: Absolute Basophil Count 0.07 10^3/uL (0.0-0.2); Absolute Eosinophil Count 0.15 10^3/uL (0.0-0.7); Absolute Lymphocyte Count 3.22 10^3/uL (1.2-3.4); Absolute Monocyte Count 1.12 10^3/uL (0.1-0.8); Absolute Neutrophil Count 13.49 10^3/uL (1.2-6.7)
[2020-12-14 23:00] VITALS: BP 115/98; PULSE 75; RESP 17; O2SAT 98
[2020-12-14] MEDS: diazePAM 10 MG/2 ML SYR 5 MG IVP (23:01)
[2020-12-14 23:12] LABS: ALT 81 U/L (14-59); AST 54 U/L (15-37); Albumin 3.4 g/dL (3.4-5.0); Alkaline Phosphatase 126 U/L (46-116); BUN 21 mg/dL (7-18); Bilirubin, Total 0.4 mg/dL (0.2-1.0); CREATININE 1.2 mg/dL (0.55-1.02); Calcium 9.1 mg/dL (8.5-10.1); Chloride 109 mmol/L (98-107); Glucose 249 mg/dL (74-106); Sodium 139 mmol/L (136-145); Total Protein 7.7 g/dL (6.4-8.2)
[2020-12-14 23:13] LABS: Potassium 1.7 mmol/L (3.5-5.1)
[2020-12-14 23:30] VITALS: BP 114/83; PULSE 75; RESP 18; O2SAT 99
[2020-12-14 23:43] LABS: Magnesium 2.5 mg/dL (1.8-2.4)
[2020-12-14] MEDS: POTASSIUM CHLORIDE 20 MEQ/100 ML BAG 50 MEQ IVPB (23:44)
[2020-12-15] VITALS (82 sets, daily range): BP systolic 99–128; BP diastolic 52–79; PULSE 62–84; RESP 11–25; TEMP 36.1–36.5; O2SAT 99–100
[2020-12-15] MEDS: Normal Saline 250 ML IV
--- NOTE | 2020-12-15 00:09 | W.PM.HP.N ---
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 There is unclear where she has been her diagnostic work-up but presently she has a positive anion gap and had a normal anion gap with presentation March 2020. She is on high-dose potassium supplement and bicarb at home along with spironolactone. Compliance may be an issue with patient having poor insight. She is not on treatment for diabetes though her hemoglobin A1c is elevated at around 9. She will be admitted for IV hydration and potassium supplement as needed with advancing oral potassium supplement. If her symptoms improve she can be converted once again to high-dose potassium supplement with bicarbonate spironolactone with close follow-up at [facility] with nephrology. Distress of her acute abscess over her left neck may have exacerbated her chronic renal issues along with chronic hyperglycemia and diabetes. (2) Cellulitis of neck: Start date: 12/04/20 Status: Acute Assessment and plan: Patient is status post I&D with packing and on oral antibiotics though she has persistent elevation of her WBC she has no fever and appears more comfortable. Continue to monitor and follow-up clinically with surgery reconsultation if needed. Better diabetes control may help with the healing process. (3) Distal renal tubular acidosis: Status: Chronic Assessment and plan: Patient should follow-up with [facility] nephrology with ongoing treatment. Oral supplementation with potassium and bicarb as well as spironolactone will be continued once patient stabilizes. (4) Type 2 diabetes mellitus: Status: Chronic Assessment and plan: Glucometers before meals and bedtime with short acting insulin coverage while hospitalized. Long-term patient should consider GLP-1 agonist and medical therapy for uncontrolled diabetes to reduce complications with advancing renal disease and with recurrent problems such as infection with abscess in her neck presently. Qualifiers: Diabetes mellitus complication status: without complication Diabetes mellitus fdc insulin use: without fdc use Qualified Code(s): E11.9 - Type 2 diabetes mellitus without complications History of Present Illness History of Present Illness Chief Complaint: Falls and muscle spasm Narrative: This is a 25-year-old female patient who was just seen 48 hours prior to presentation by her PCP and at that time status post I&D on 12/04/2020 and on Augmentin the patient was feeling well. She fell 3 times prior to presenting to the ED on the day of admission despite attempting to maintain treatment of distal renal tubular acidosis with severe hypokalemia with oral potassium. She was diagnosed with distal RTA and severe hypokalemia with a question of hypokalemic nephropathy in March 2020. Since that time she has switched PCPs and is switching floor polisher and appears to not be doing well with outpatient treatment. She presents to the ED with muscle spasm and weakness which probably secondary to severe hypokalemia with her potassium below 2. He was given IV potassium supplement in the ED and will be admitted with continued oral and IV potassium supplement to correct this problem. The time I saw the patient she appeared depressed and withdrawn and moving her upper extremities well but not moving her lower extremities though there was no spasm evident or discomfort manifested. She does have diabetes which is untreated and compliance with medical care appears to be an issue. [place] with her and works very hard but appears to be not satisfied with the medical diagnoses and treatment options that are being given. She is chronically on oral potassium and bicarb at home. She states that she is not on treatment for diabetes because of her inflamed kidneys. At presentation March 2020 she had a normal anion gap but this is elevated during this hospitalization. She does have the acute infection with her neck cellulitis and dry packing over her left posterior neck. As stated, this was treated with incision and drainage with packing on 12/04/2020. Patient denies any fever or chills but does have an elevated WBC possibly associated with her stress and abscess of her neck recently. Culture should be followed up. Review of Systems Narrative: 13 point review of systems otherwise unrevealing or stable. Patient appears chronically depressed and coping poorly with her chronic medical problems and acute problem. [facility] Surgical History Previous section 11/01/19 for breech Family History Father Well adult Mother Well adult Social History (Reviewed 12/15/20 @ 00:10 by Raz Salomon Smoking/Tobacco Use Status: Never Smoking risk assessment performed?: Yes Alcohol Intake: never Substance use type: does not use Do you feel safe at home: Yes Do you feel safe in your relationship?: Yes Meds Allergies and Home Medications Allergies Allergy/AdvReac Type Severity Reaction Status Date / Time No Known Allergies Allergy Verified 12/14/20 22:15 Home Medications Medication Instructions Recorded Confirmed Type potassium chloride [K-Tab] 20 meq PO DAILY #14 tab 12/01/20 12/14/20 Rx spironolactone 50 mg PO DAILY 12/01/20 12/14/20 History acetaminophen 500 mg tablet 1,000 mg PO Q6H PRN tab 12/12/20 12/14/20 History blood sugar diagnostic #10 ea 12/12/20 12/14/20 History lancets 33 gauge #100 ea 12/12/20 12/14/20 History Exam Narrative Exam Narrative: General: Patient appears appropriate for age with flattened affect and depressed mood. She has decreased eye contact. He is alert and oriented x3. He is in moderate distress with her muscle spasm of lower extremities and inability to move her muscles normally. She is comfortably moving her upper extremities adjusting her bed. HEENT: Normocephalic, eyes with pupils equal and react light symmetrically, extraocular movement intact and sclera anicteric. Neck: Supple with dry bandage over the left posterior neck. Back: Stooped posture without CVA tenderness. Lungs: Clear to auscultation. Heart: Regular rate and rhythm with no murmurs gallops appreciated. Breast: Exam deferred. Abdomen: Obese contour, soft nontender to palpation with no palpable hepatosplenomegaly. Genitalia/rectal: Exam deferred. Extremities: Without clubbing, cyanosis or pitting edema. Peripheral pulses are intact. No joint swelling. Patient is not moving her lower extremities secondary to reported discomfort. Skin: Normal color, warm and dry. Neuro: Cranial nerves II through XII gross intact. Patient can move all extremities and there is no obvious tremor or clonus. Psych: Flattened affect, depressed mood with slow and monotonous tone to voice. No abnormal thought processes. Poor insight. Remote and recent memory intact. Results Labs Result diagrams: 12/15/20 06:15 12/15/20 06:15 Labs: Laboratory Results - last 24 hr 12/14/20 12/14/20 12/14/20 22:25 22:25 22:25 WBC 18.31 H RBC 4.72 Hgb 13.1 Hct 38.0 MCV 80.5 MCH 27.8 MCHC 34.5 RDW 15.4 H Plt Count 386 D MPV 10.0 Immature Gran % 1.4 Neutrophils % 73.7 Lymphocytes % 17.6 Monocytes % 6.1 Eosinophils % 0.8 Basophils % 0.4 Nucleated RBC % 0 Absolute Neutrophils 13.49 H Absolute Lymphocytes 3.22 Absolute Monocytes 1.12 H Absolute Eosinophils 0.15 Absolute Basophils 0.07 Sodium 139 Potassium 1.7 L* Chloride 109 H Carbon Dioxide 12.0 L Anion Gap 18.0 H BUN 21 H Creatinine 1.2 H Estimated GFR/1.73 m2 54.30 Glucose 249 H Calcium 9.1 Magnesium 2.5 H Total Bilirubin 0.4 AST 54 H ALT 81 H Alkaline Phosphatase 126 H Total Protein 7.7 Albumin 3.4 Last Vital Signs Temp 36.7 C 12/14/20 22:11 Pulse 98 H 12/14/20 22:11 Resp 16 12/14/20 22:15 BP 131/72 12/14/20 22:11 Pulse Ox 99 12/14/20 22:11
[2020-12-15 01:13] LABS: Source Nasal/Nares
[2020-12-15 02:03] LABS: COVID-19 PCR Negative (Negative)
[2020-12-15] MEDS: Mylanta Suspension 30 ML CUP PO (02:36)
[2020-12-15] MEDS: Normal Saline 1,000 ML 125 ML IV (06:29)
[2020-12-15 07:07] LABS: Abs Immature Grans 0.21 10^3/uL (0.0-0.06); Absolute Lymphocyte Count 3.69 10^3/uL (1.2-3.4); Absolute Monocyte Count 0.95 10^3/uL (0.1-0.8); Basophils % 0.4; Eosinophils % 1.3; HCT 37.1 % (36.0-46.0); HGB 12.6 g/dL (11.2-15.7); Immature Grans % 1.3; Lymphocytes % 23.7; MCH 27.5 pg (27.0-33.0); MCV 80.8 fL (80-95); MPV 9.9 fL (8.0-11.0); Monocytes % 6.1; Neutrophils % 67.2; Nucleated RBC 0 %; Platelet Count 359 10^3/uL (130-400); RBC 4.59 10^6/uL (3.93-5.22); RDW 15.7 % (11.7-14.6); RDW-SD 44.4 fL; WBC 15.57 10^3/uL (4.4-10.8)
[2020-12-15 07:08] LABS: Absolute Basophil Count 0.06 10^3/uL (0.0-0.2); Absolute Neutrophil Count 10.46 10^3/uL (1.2-6.7)
[2020-12-15 07:16] LABS: ALT 74 U/L (14-59); AST 43 U/L (15-37); Albumin 3.2 g/dL (3.4-5.0); Alkaline Phosphatase 117 U/L (46-116); Anion Gap 18.2 mmol/L (3-11); BUN 21 mg/dL (7-18); Bilirubin, Total 0.3 mg/dL (0.2-1.0); CO2 10.8 mmol/L (21.0-32.0); CREATININE 1.1 mg/dL (0.55-1.02); Calcium 9.1 mg/dL (8.5-10.1); Chloride 114 mmol/L (98-107); Glucose 171 mg/dL (74-106); Sodium 143 mmol/L (136-145); Total Protein 7.3 g/dL (6.4-8.2)
[2020-12-15 07:34] LABS: Potassium 1.5 mmol/L (3.5-5.1)
[2020-12-15] MEDS: Ondansetron 4 MG/2 ML VIAL IVP (08:08)
[2020-12-15] MEDS: POTASSIUM CHLORIDE/0.9% NACL 1,000 ML 100 MEQ IV ×2 (08:09→18:40)
[2020-12-15] MEDS: POTASSIUM CHLORIDE 20 MEQ/100 ML BAG 50 MEQ IVPB ×2 (08:09→10:26)
--- NOTE | 2020-12-15 09:15 | INITIAL_ITS ---
- If Service Date Differs Date of service: 12/15/20 Time of Service: 09:15 Care Management Initial Assess REASON FOR HOSPITALIZATION:: Severe hypokalemia, RTA, NIDDM. PAST MEDICAL HISTORY/PAST SURGICAL HISTORY:: Medical History: Neck abscess, cellulitis of neck, hypokalemia, distal renal tubular acidosis, HANNY (acute kidney injury), elevated hemoglobin A1c, transaminitis, and history of ectopic . Surgical History: Previous section - 11/01/19 for breech. PREVIOUS FUNCTIONAL STATUS/SOCIAL/FAMILY SUPPORTS:: Tea lives in [place] with her boyfriend and her daughter. 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 She has a close relationship with her mom. Both Elliot, her boyfriend, and her mother are supports for her. Tea is independent at baseline. CURRENT FUNCTIONAL STATUS:: Tea is sitting on the side of the bed when CM comes to meet with her. Her mother, Joanie, is present in the room. Tea reports she is feeling better. She and her mom share that her new PCP has made a referral to [facility] hoping they can figure out why her potassium levels drop without warning. CM will continue to follow. ADVANCE DIRECTIVES:: None on file; previously declined form. Has patient been provided with info about the portal/API?: Yes Did the patient sign up for the portal?: Yes (Previously enrolled.) CODE STATUS:: Full Code INSURANCE COVERAGE / FINANCIAL ISSUES:: Medicaid. CURRENT HOME/COMMUNITY SERVICES/EQUIPMENT:: Tea is independent at baseline. She has no home/community services or equipment. PRIMARY CARE PHYSICIAN:: Beatriz Dc MD. POTENTIAL DISCHARGE NEEDS:: Follow up appointment with PCP and discharge plan of care. PATIENT/FAMILY EDUCATION NEEDS:: Discharge instructions regarding medications and follow up plan of care, including Ask Me Three. ANTICIPATED BARRIERS TO DISCHARGE:: No anticipated barriers at this time. TRANSPORTATION:: Via private vehicle with family. PLAN:: Anticipate Tea will be discharged home with no services when medically cleared by provider. She will follow up with her PCP and discharge plan of care as instructed. Family will drive her home via private vehicle when ready. CM will continue to follow. Readmission - Within the Past 30 Days Yes or No: Y - Date of First Admission Date of 1st Admission: 12/04/20 - Date of this Admission Date of Admission: 12/15/20 This admission was: Through ED - Office Visit Since 1st Admission Have you seen your PCP in the office since discharge?: Yes Date of PCP Appointment: 12/12/2020 - Speicalist Appointments Have you seen any other specialist since your 1st Admission?: Yes Date you saw the Specialist: 12/09/2020 Specialist Seen: ELIZABETH Patel, at [facility]. - I. Interview patient and/or Family Difficulty reaching your doctor or getting an office appt?: No Have you had trouble purchasing/ or taking medication?: No How do you take your medications and set up your pills?: Takes own medication as prescribed. Have you had trouble with getting meals at home?: No Did you feel ready for discharge when you left the last time: Yes If patient did not receive services, were there orders at: No Reason there were no orders at discharge: Not needed. Did you call your physician beore you came to the ED?: No Did your physician tell you to come in?: No How do you think you became sick enough to come back?: My potassium dropped and I started getting cramps in my legs. Usually I feel it in my hands first but not this time. When my potassium gets too low, I can't move. - Ask the Care Team Members: What do you think caused the patient to be readmitted: Muscle spasms to bilateral lower extremities with movement and bilateral upper extremities and a critically low potassium level at 1.7. - ED visits How many ED visits in the past 12 months: 3 - Assessment for Readmission Summary of readmission circumstances, based upon interviews: Despite taking potassium chloride 20 mEq tablet PO daily, Tea continues to experience a drop in potassium levels, requiring admission for the treatment of hypokalemia.
[2020-12-15] MEDS: Spironolactone 50 MG TAB PO (09:25)
[2020-12-15] MEDS: Potassium Chloride 20 MEQ TABCR PO ×4 (09:25→20:26)
[2020-12-15] MEDS: Insulin Aspart 300 UNITS/3 ML PEN SC ×2 (09:26→21:36)
[2020-12-15] MEDS: Enoxaparin 40 MG/0.4 ML SYR SC (10:08)
[2020-12-15] MEDS: PIPERACILLIN/TAZO 3.375 GM in Normal Saline 50 ML IVPB ×3 (10:33→21:37)
--- NOTE | 2020-12-15 11:39 | PHA.REVIEW ---
Pharmacy Admission Review - Admission Clinical Review (Last Reviewed 12/15/20 @ 00:10 by Raz Saeed) Hypokalemia due to loss of potassium (Acute) Type 2 diabetes mellitus (Acute) Cellulitis of neck (Acute) No Known Allergies Allergy (Verified 12/14/20 22:15) Resuscitation Status Full Code Height 5 ft 4 in Weight 88.9 kg - Renal Dosing Renal Dosing: BUN 21 mg/dL (7-18) H 12/15/20 06:15 Creatinine 1.1 mg/dL (0.55-1.02) H 12/15/20 06:15 Medications needing adjustments: Reviewed (CRCL ~67ML/MIN) - Anticoagulation Anticoagulation: Hgb 12.6 g/dL (11.2-15.7) 12/15/20 06:15 Hct 37.1 % (36.0-46.0) 12/15/20 06:15 Plt Count 359 10^3/uL (130-400) 12/15/20 06:15 Creatinine 1.1 mg/dL (0.55-1.02) H 12/15/20 06:15 DVT Prohphylaxis: Reviewed Medications: Enoxaparin Therapeutic Anticoagulation: N/A - Relevant Labs Sodium 143 mmol/L (136-145) 12/15/20 06:15 Potassium 1.5 mmol/L (3.5-5.1) L* 12/15/20 06:15 Chloride 114 mmol/L (98-107) H 12/15/20 06:15 Magnesium 2.5 mg/dL (1.8-2.4) H 12/14/20 22:25 Electrolytes, C-Reactive P, ESR: Reviewed (KCL BOLUSES AND IVF WITH KCL) - DM Control DM Control: Glucose 171 mg/dL (74-106) H D 12/15/20 06:15 Finger Stick Blood Glucose 165 Finger Stick Blood Glucose 165 Insulin Dosing: Reviewed (INSULIN ASPART SS) - BP Control BP Control: Blood Pressure [Left Arm] 116/62 Blood Pressure 112/64 Blood Pressure 114/66 Blood Pressure 105/68 Blood Pressure 123/69 Blood Pressure 122/62 Blood Pressure 128/71 Blood Pressure 127/79 If elevated: N/A - Qtc Review If Elevated: Reviewed (618 ON ADMISSION) - Home Meds Home Med List reviewed: Reviewed - Current meds Current Medication Order Review: Reviewed - Comments Comments/Follow Ups: WATCH K+ AND MEDS FOR EFFECT ON QTC. MAY DISCHARGE HOME ON MED FOR DM
[2020-12-15 16:37] LABS: Potassium 2.5 mmol/L (3.5-5.1)
[2020-12-15] MEDS: Normal Saline Flush 10 ML SYR IV (20:27)
[2020-12-16] VITALS (9 sets, daily range): BP systolic 97–106; BP diastolic 44–60; PULSE 71–82; RESP 14–20; TEMP 36.1–36.2; O2SAT 98
[2020-12-16] MEDS: Acetaminophen 325 MG TAB 650 MG PO (00:50)
[2020-12-16] MEDS: PIPERACILLIN/TAZO 3.375 GM in Normal Saline 50 ML IVPB (04:11)
[2020-12-16] MEDS: POTASSIUM CHLORIDE/0.9% NACL 1,000 ML 100 MEQ IV (04:12)
[2020-12-16] MEDS: POTASSIUM CHLORIDE 10 MEQ/100 ML BAG 100 MEQ IVPB ×2 (06:28→08:34)
[2020-12-16 07:22] LABS: Potassium 3.5 mmol/L (3.5-5.1)
[2020-12-16 07:57] LABS: Anion Gap 15.3 mmol/L (3-11); BUN 16 mg/dL (7-18); CO2 10.7 mmol/L (21.0-32.0); CREATININE 1.2 mg/dL (0.55-1.02); Calcium 8.1 mg/dL (8.5-10.1); Chloride 118 mmol/L (98-107); Glucose 130 mg/dL (74-106); Potassium 3.8 mmol/L (3.5-5.1); Sodium 144 mmol/L (136-145)
[2020-12-16 08:33] LABS: Abs Immature Grans 0.17 10^3/uL (0.0-0.06); Absolute Eosinophil Count 0.23 10^3/uL (0.0-0.7); Absolute Lymphocyte Count 3.42 10^3/uL (1.2-3.4); Absolute Monocyte Count 0.75 10^3/uL (0.1-0.8); Basophils % 0.7; Eosinophils % 1.9; HCT 36.6 % (36.0-46.0); HGB 12.2 g/dL (11.2-15.7); Immature Grans % 1.4; Lymphocytes % 27.9; MCH 28.2 pg (27.0-33.0); MCHC 33.3 % (32.0-36.0); MCV 84.5 fL (80-95); MPV 10.3 fL (8.0-11.0); Monocytes % 6.1; Nucleated RBC 0 %; Platelet Count 333 10^3/uL (130-400); RBC 4.33 10^6/uL (3.93-5.22); RDW 16.7 % (11.7-14.6); RDW-SD 48.3 fL; WBC 12.27 10^3/uL (4.4-10.8)
[2020-12-16] MEDS: Spironolactone 50 MG TAB PO (08:34)
[2020-12-16] MEDS: Enoxaparin 40 MG/0.4 ML SYR SC (08:34)
[2020-12-16] MEDS: Potassium Chloride 20 MEQ TABCR PO (08:34)
[2020-12-16 08:35] LABS: Absolute Basophil Count 0.09 10^3/uL (0.0-0.2); Absolute Neutrophil Count 7.61 10^3/uL (1.2-6.7)
[2020-12-16] MEDS: Normal Saline Flush 10 ML SYR IV (08:35)
--- NOTE | 2020-12-16 10:23 | W.PM.DS.N ---
Date of service: 12/16/20 Time of Service: 10:23 DS: Diagnosis Discharge Diagnosis (1) Hypokalemia: Status: Acute (2) Cellulitis of neck: Status: Acute (3) Distal renal tubular acidosis: Status: Chronic (4) Type 2 diabetes mellitus: Status: Chronic Discharge Plan Disposition Patient Disposition: HOME Condition: Good Discharge Details Reason For Visit: Severe Hypokalemia,RTA,NIDDM Admit Date/Time: 12/15/20 00:00 Admit Provider: Raz Saeed Attending Provider: Raz Saeed Primary Care Provider: [facility] Course Hospital Course: This is a 25-year-old female patient who was just seen 48 hours prior to presentation by her PCP and at that time status post I&D of neck abscess on 12/04/2020. She fell 3 times prior to presenting to the ED on the day of admission despite attempting to maintain treatment of distal renal tubular acidosis with severe hypokalemia with oral potassium. She was diagnosed with distal RTA and severe hypokalemia with a question of hypokalemic nephropathy in March 2020. Since that time she has switched PCPs and is switching academic guidance specialist and appears to not be doing well with outpatient treatment. She presents to the ED with muscle spasm and weakness which probably secondary to severe hypokalemia with her potassium below 2. IV potassium supplement administered in the ED and admitted with continued oral and IV potassium supplement to correct this problem. She does have diabetes which is untreated currently other than with diet. Her PCP is planning treatment but wanted recommendations from nephrology before initiating any medications. She is chronically on oral potassium and bicarb at home. At presentation March 2020 she had a normal anion gap but was elevated during this hospitalization. She does have the acute infection with her neck cellulitis and dry packing over her left posterior neck. As stated, this was treated with incision and drainage with packing on 12/04/2020. Patient denied any fever or chills but does have an elevated WBC possibly associated with her stress and abscess of her neck recently. Culture from fluid obtained on 12/04/2020 grew MSSA. With IV and oral supplementation her K+ normalized to 3.8. A cortisol was drawn on the day of discharge with results pending; evaluating for possible adrenal insufficiency. Her oral K+ dose was increased to 40meq in the AM and noon, 20 meq at 5PM and bedtime. Her PCP has placed a referral for nephrology appt at [facility] She is to arranged a f/u with general surgery; their suggestion was 2 weeks after her appt she had on 12/15/2020. Her WBC count was elevated at 18.3 on admission. Zosyn initiated and it improved to 12.27. Serosanguineous drainage from neck wound / not purulent. D/C'd on Augmentin 875mg BID for 5 days. F/U with PCP in 1-2 weeks. Lab on Wed12/18/2020. Home Meds and New Rx's Prescriptions: New potassium chloride [Klor-Con M20] 20 mEq Tablet,Er Particles/Crystals See Rx Instructions .ROUTE .COMPLEX Qty: 180 RF: 0 amoxicillin-pot clavulanate [Augmentin] 875-125 mg tablet 1 tab PO BID Qty: 10 RF: 0 Continued acetaminophen [Tylenol Extra Strength] 500 mg tablet 1,000 mg PO Q6H PRNRF: 0 spironolactone 50 mg Tablet 50 mg PO DAILY RF: 0 Discontinued potassium chloride [K-Tab] 20 mEq tablet extended release 20 meq PO DAILY Qty: 14 RF: 0 No Action (DME) lancets [OneTouch Delica Lancets] 33 gauge misc See Rx Instructions .ROUTE .MEDSUPPLY Qty: 150 RF: 4 (DME) blood sugar diagnostic Strip See Rx Instructions .ROUTE .MEDSUPPLY Qty: 150 RF: 4 Discharge Instructions Activity:: Activity as Tolerated Equipment/Supplies:: No Equipment Needed Diet:: Diabetic Diet Discharge Orders Discharge Orders: Discharge Order (Routine); Ordered 12/16/20 Ordered By: Nilton Montilla Other Ambulatory Orders: Basic Metabolic Panel (Routine) Timeframe: 2 Days Location: None Selected Ordered By: Nilton Montilla Discharge Data Discharge Date/Time-TO BE ENTERED AT DEPARTURE: 12/16/20 12:01 DS: Summary Time Spent with Patient providing and/or coordinating discharge services: Greater than 30 minutes Status at Discharge Functional status at discharge: independent ambulation Overall status at discharge: patient is back to baseline Mental Status: mental status grossly normal Speech and Movement: speech and movement normal Mood: congruent mood Affect: normal affect Exam Const General: cooperative and no acute distress Nutritional Appearance: obese Orientation: alert and oriented x3 Resp Effort & Inspection: normal respiratory effort Auscultation: clear to auscultation bilaterally Cardio Rate: regular rate Rhythm: regular rhythm Heart Sounds: S1 normal and S2 normal GI Palpation: soft and nontender Skin General skin exam: no rashes or lesions noted Neuro General: no focal motor deficits Cognition: normal cognition Speech: speech normal Gait: normal gait Extrem General: no pedal edema and no calf tenderness Psych Mental Status: mental status grossly normal Speech and Movement: speech and movement normal Mood: congruent mood Affect: normal affect DS: Data Vitals/I&O Vitals and I&O: Vital Signs Temperature 36.1 C L 12/16/20 09:00 Temperature Source Temporal Artery Scan 12/16/20 09:00 Pulse 79 12/16/20 08:03 Pulse Rhythm Regular 12/16/20 09:11 Pulse 78 12/16/20 08:03 Respiratory Rate 15 12/16/20 08:03 Respiratory Effort 12/16/20 09:11 Respiratory Depth Shallow 12/16/20 09:11 Respiratory Pattern Normal 12/16/20 09:11 Blood Pressure 106/60 12/16/20 08:03 Blood Pressure Mean 70 12/16/20 08:03 Blood Pressure Position Supine 12/15/20 02:43 Pulse Oximetry 98 12/16/20 09:00 Oxygen Delivery Method Room Air 12/16/20 09:00 Oxygen Flow Rate 0 12/16/20 09:00 Pain Level 0 12/16/20 09:00 Intake & Output 12/15/20 12/15/20 12/16/20 11:59 23:59 11:59 Intake Total 1039.583 / 6039.583 5000 / 6039.583 2903.333 / 2903.333 Output Total 1825 / 4825 3000 / 4825 2099 / 2099 Balance -785.417 / 8238.915 2406 / 1214.583 803.333 / 803.333 Weight 88.9 kg 85.45 kg Intake: IV 689.583 / 5949.252 1759 / 4529.123 7117.333 / 1103.333 Oral 350 / 4150 3800 / 4150 1800 / 1800 Output: Urine 1825 / 4825 3000 / 4825 2100 / 2100 Other: Urine Color Yellow Pale Pale Yellow Yellow Urine Appearance Clear Clear Clear Urine Odor None None None Emesis Description None Voiding Methods Bedside Commode Bedside Commode Bedside Commode Data Completed and Pending Labs on day of discharge: Labs from last 24 hours 12/16/20 12/16/20 12/16/20 06:10 06:10 06:10 WBC RBC Hgb Hct MCV MCH MCHC RDW Plt Count MPV Immature Gran % Neutrophils % Lymphocytes % Monocytes % Eosinophils % Basophils % Nucleated RBC % Absolute Neutrophils Absolute Lymphocytes Absolute Monocytes Absolute Eosinophils Absolute Basophils Sodium 144 Potassium 3.8 3.5 D Chloride 118 H Carbon Dioxide 10.7 L Anion Gap 15.3 H BUN 16 Creatinine 1.2 H Estimated GFR/1.73 m2 54.30 Glucose 130 H Calcium 8.1 L Cortisol Pending 12/16/20 12/15/20 06:00 16:15 WBC 12.27 H RBC 4.33 Hgb 12.2 Hct 36.6 MCV 84.5 D MCH 28.2 MCHC 33.3 RDW 16.7 H Plt Count 333 MPV 10.3 Immature Gran % 1.4 Neutrophils % 62.0 Lymphocytes % 27.9 Monocytes % 6.1 Eosinophils % 1.9 Basophils % 0.7 Nucleated RBC % 0 Absolute Neutrophils 7.61 H Absolute Lymphocytes 3.42 H Absolute Monocytes 0.75 Absolute Eosinophils 0.23 Absolute Basophils 0.09 Sodium Potassium 2.5 L* D Chloride Carbon Dioxide Anion Gap BUN Creatinine Estimated GFR/1.73 m2 Glucose Calcium Cortisol [facility] Surgical History Previous section 11/01/19 for breech Family History Father Well adult Mother Well adult Social History Smoking/Tobacco Use Status: Never Smoking risk assessment performed?: Yes Alcohol Intake: never Substance use type: does not use Do you feel safe at home: Yes Do you feel safe in your relationship?: Yes
--- NOTE | 2020-12-16 10:56 | PDOC.CMDIS ---
LACE Index Scoring Tool - Questions: Length of Stay (in days): 1 Acuity (Admit via E.D.?): Yes E.D. Visits: 2 - Answers: Total Score: 6 Risk of Readmission: Low Risk Care Management Discharge Reason for Hospitalization: Severe hypokalemia, RTA, NIDDM. Discharge Plan: Tea will be discharged home with no services when medically cleared by provider. She will follow up with her PCP and discharge plan of care as instructed. Family will drive her home via private vehicle when ready. Patient/Family Education Needs: Discharge instructions regarding medications and follow up plan of care, including Ask Me Three.
[2020-12-16 12:01] LABS: Lyme Ab w Rflx to Lyme Confirm Negative (Negative)
[2020-12-16 12:59] LABS: ALT 60 U/L (14-59); AST 38 U/L (15-37); Albumin 3.1 g/dL (3.4-5.0); Alkaline Phosphatase 98 U/L (46-116); Bilirubin, Total 0.4 mg/dL (0.2-1.0); Total Protein 6.5 g/dL (6.4-8.2)
[2020-12-16 13:00] LABS: Hemoglobin A1C 8.8 % (<5.7)
[2020-12-17 20:13] LABS: Anaplasma phagocytophilum Negative (Negative); B. miyamotoi PCR Negative (Negative); Babesia divergens/MO-1 Negative (Negative); Babesia duncani Negative (Negative); Babesia microti Negative (Negative); Ehrlichia chaffeensis Negative (Negative); Ehrlichia ewingii/canis Negative (Negative); Ehrlichia muris eauclairensis Negative (Negative)
== END 2020-12-16 12:01 | disposition home or self-care (01) | DRG 641 ==
LOC: ER 22:05 → ICU 12-15 02:59
PROVIDERS: Emergency Medicine; Family Medicine; General Practice; Nurse Practitioner; Admitting Provider Family Medicine; Emergency Provider Registered Nurse Emergency; PCP Family Medicine; Visit Provider Family Medicine
DX: E87.6 Hypokalemia (principal); L03.221 Cellulitis of neck; N25.89 Other disorders resulting from impaired renal tubular function; R29.6 Repeated falls; E11.9 Type 2 diabetes mellitus without complications; M62.838 Other muscle spasm
CPT/HCPCS: 36410; 36415; 36592; 80048; 80053; 82533; 87635; 87798; 93005; 96361; 96365; 96366; 96375; 99285; J1650; 83036; 83735; 84132; 85025; 86618; 93010; 99239; J2405; J2543; J3360; J3480

== ENCOUNTER 2020-12-18 11:18 | Outpatient (CLI) | payer MEDICAID, SELFPAY ==
[2020-12-18 14:53] LABS: Anion Gap 16.8 mmol/L (3-11); BUN 17 mg/dL (7-18); CO2 11.2 mmol/L (21.0-32.0); CREATININE 1.2 mg/dL (0.55-1.02); Calcium 8.8 mg/dL (8.5-10.1); Chloride 110 mmol/L (98-107); Glucose 204 mg/dL (74-106); Potassium 3.1 mmol/L (3.5-5.1); Sodium 138 mmol/L (136-145)
== END 2020-12-18 11:19 | disposition home or self-care (01) ==
LOC: LBO 11:20
PROVIDERS: PCP Family Medicine; Visit Provider Family Medicine
DX: E87.6 Hypokalemia (principal); N25.89 Other disorders resulting from impaired renal tubular function
CPT/HCPCS: 36415; 80048

== ENCOUNTER 2020-12-26 02:49 | Outpatient (CLI) | payer MEDICAID, SELFPAY ==
[2020-12-26 15:16] LABS: Anion Gap 19.8 mmol/L (3-11); BUN 16 mg/dL (7-18); CO2 11.2 mmol/L (21.0-32.0); CREATININE 1.3 mg/dL (0.55-1.02); Calcium 9.3 mg/dL (8.5-10.1); Chloride 111 mmol/L (98-107); Estimated GFR 49.51 (mL/min/1.73m2); Glucose 138 mg/dL (74-106); Potassium 3.3 mmol/L (3.5-5.1); Sodium 142 mmol/L (136-145); TSH (W/Ref FT4) 1.02 uIU/mL (0.36-3.74)
== END 2020-12-26 02:50 | disposition home or self-care (01) ==
LOC: LBO 02:49
PROVIDERS: PCP Family Medicine; Visit Provider Family Medicine
DX: E11.9 Type 2 diabetes mellitus without complications (principal); E87.6 Hypokalemia
CPT/HCPCS: 36415; 80048; 84443

== ENCOUNTER 2021-01-08 08:16 | Outpatient (CLI) | payer MEDICAID, SELFPAY ==
--- OUTSIDE RECORDS SUMMARY | 2021-01-08 08:23 | XMS_ITS ---
:1995 Author Care Team Providers Name Role Phone CRISTIAN PAULINO RN Care Manager Unavailable ELIZABETH WALKER Primary Care Provider Unavailable Allergies Code Code System Name Reaction Severity Status Onset NKDA ? Medications Name Status Start Date Stop Date ? ? acetaminophen 325 mg tablet Completed 11/04/201911/20 Take 650 mg every 4 hours by oral route as needed. amoxicillin 875 mg tablet Completed 10/20/20112011 1 Tablet: two times daily azithromycin 500 mg tablet Completed 07/31/201109/09 2 (two) Tablet: once with food clindamycin HCl 150 mg capsule Completed 03/29/2013 1 1 Capsule: qid - four times a day Dilaudid 2 mg tablet Completed 11/04/2019 12/13/2019 Take 1 tablet every 6 hours by oral route as needed. Enskyce 0.15 mg-0.03 mg tablet Completed ? 0 11/22/2018 Flintstones with Iron 18 mg Completed ? 05/21 iron chewable tablet Glucagon Emergency Kit 1 mg solution for injection Completed ? 11/04/2019 Take 1 mg as needed by injection route. Humalog KwikPen (U-100) Insulin 100 unit/mL subcutaneous Complet ed ? 11/04/2019 Inject 22 units by subcutaneous route as directed. Humulin N NPH U-100 Insulin KwikPen 100 unit/mL (3 mL) subcutane ous Completed ? 11/04/2019 Inject 32 units every day by subcutaneous route. ibuprofen 200 mg capsule Completed 11/04/2019 020 Take 600 mg every 6 hours by oral route. To start 6 hours AFTER LAST ketorolac (Toradol) dose Klor-Con M20 mEq tablet,extended release Completed 020 06/05/2020 Take 5 tablets every day by oral route as directed for 30 days. Guerda Fe 1.5/30 (28) 1.5 mg-30 mcg (21)/75 mg (7) tablet Active 04/05/2020 Not available Take 1 tablet every day by oral route. Loestrin 1.5/30 (21) 1.5 mg-30 mcg tablet Completed ? 04/05/2020 Take 1 tablet every day by oral route. methotrexate sodium (PF) 25 Completed ? 11/20 mg/mL injection solution methotrexate sodium 25 mg/mL injection solution Completed ? 11/30/2018 Take 98.5 mg by injection route. Going to ED for injection metronidazole 500 mg tablet Completed ? 04/22 nitrofurantoin Completed ? 11/30/2018 monohydrate/macrocrystals 100 mg capsule nystatin 100,000 unit/mL oral suspension Completed 013 03/29/2013 5 Milliliter(s): four times daily omeprazole 20 mg capsule,delayed release Completed ? 11/04/2019 Take 1 capsule every day by oral route. Ortho Micronor 0.35 mg tablet Completed ? Take 1 tablet every day by oral route. oxycodone-acetaminophen 5 Completed ? 2018 mg-325 mg tablet Prenatabs Rx 29 mg iron-1 mg tablet Active 04/05/2020 Not available Take 1 tablet every day by oral route. Completed 11/04/2019 04/05/2020 1 daily Gummy 400 mcg-35 mg-25 mg-5 mg chewable tablet Complete d ? 06/08/2019 Take 2 tablets every day by oral route. RhoGAM Ultra-Filtered PLUS 1,500 unit (300 mcg) intramuscula r syringe Completed ? 10/12/2019 Inject 300 micrograms by intramuscular route. spironolactone 25 mg tablet Active ? Not available Take 1 tablet every day by oral route in the morning. Zofran 4 mg tablet Completed ? 07/26/2019 1 tablet every 6 hours as needed for nausea Notes: Med Rec Updated 0-laf Problems Name Status Onset Date Source ? Contraception Care Management Unknown 10/23/2018 ? Unknown 11/22/2018 ? Ectopic Unknown 12/01/2018 ? Unknown 03/15/2019 ? Routine Care Active 05/15/2019 ? Gestational Diabetes Mellitus Active 08/24/2019 ? Hypokalemia Active 04/05/2020 ? 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 Chlamydial Infection Unknown ? History Impacted Cerumen Unknown ? History Pharyngitis Unknown ? History Aphthous Ulcer of Mouth Unknown ? History Headache Unknown ? History Well Child Unknown ? History Disorder of Urinary Tract Unknown ? Histor y Procedures Date Name Performed by ? 11/01/2019 Section Information not avai lable 12/05/2018 Salpingostomy Information not avai lable Notes: Right - Ectopic ? Oral Surgery Procedure Information not a vailable 11/22/2018 US, Obstetric, Transabdominal + [facility] Rad[facility] (Internal) Transvaginal [address] [place] [address] (Work [address]) 11/29/2018 US, Obstetric, Transvaginal [facility] Radiology (Internal) [address] [place] [address] (Work Place) 03/03/2019 US, Obstetric, Transabdominal + [facility] Radiology (Internal) Transvaginal [address] [place] [address] (Work [address]) 03/24/2019 US, Obstetric, Follow-up [facility] (Internal) [address] [place] [address] (Work Place) 03/24/2019 US, Obstetric, Follow-up [facility] (Internal) [address] [place] [address] (Work Place) 03/24/2019 US, Obstetric, Transvaginal [facility] Radiology (Internal) [address] [place] [address] (Work [address]) 03/27/2019 US, Obstetric, Transvaginal [facility]iology (Internal) [address] [place] [address] (Work [address]) 05/15/2019 US, Obstetric, Transabdominal + [facility] Radiology (Internal) Transvaginal [address] [place] [address] (Work [address]) 07/05/2019 US, Obstetric, Transvaginal [facility] Radiology (Internal) [address] [place] [address] (Work [address]) 09/07/2019 US, Obstetric, Follow-up [facility] (Internal) [address] [place] [address] (Work [address]) 09/14/2019 Non-stress Test [facility] (Internal) [address] [place] [address] (Work [address]) 09/14/2019 [facility] [address] [place] [address] (Work [address]) 09/14/2019 Non-stress Test [facility] (Internal) [address] [place] [address] (Work Place) 09/29/2019 Non-stress Test [facility] Radiology (Internal) [address] [place] [address] (Work Place) 10/04/2019 Non-stress Test [facility] (Internal) [address] [place] [address] (Work Place) 10/04/2019 Non-stress Test [facility] [address] [place] [address] (Work Place) 10/04/2019 Non-stress Test [facility] (Internal) [address] [place] [address] (Work Place) 10/04/2019 Non-stress Test [facility] (Internal) [address] [place] [address] (Work Place) 10/04/2019 Non-stress Test [facility] [address] [place] [address] (Work Place) 10/04/2019 Non-stress Test [facility] [address] [place] [address] (Work Place) 10/04/2019 Non-stress Test [facility] [address] [place] [address] (Work [address]) 10/04/2019 Non-stress Test [facility] ([facility]) [address], [place] [id number] (Work Place) Results Lab Results Date Name Specimen Result Interpretation Description Value Range Status Address ? 06/05/2020 BMP, Serum S High g/r 202 mg/dL 74-106 Final [place] or Plasma mg/dL [facility] : [address] ? ? S High Bun 19 mg/dL 7-17 Final [place] mg/dL [facility] ([facility] : [address] ? ? S ? Crea 0.90 mg/dL 0.52-1.04 Final [place] mg/dL [facility] ([facility] : [address] ? ? S ? Ca 9.3 mg/dL 8.4-10.2 Final [place] mg/dL [facility] ([facility] : [address] ? ? S ? Na 138 mmol/L 137-145 Final [place] mmol/L [facility] ([facility] : [address] ? ? S Low K 2.9 mmol/L 3.5-5.1 Final [place] mmol/L [facility] ([facility] : [address] ? ? S High Cl 113 mmol/L 98-107 Final [place] mmol/L [facility] ([facility] : [address] ? ? S CRITICAL Tco2 15.0 22.0-30.0 Final [place] LOW mmol/L mmol/L [facility] ([facility]) : [address] 04/18/2020 BMP, Serum S High g/r 148 mg/dL 74-106 Final [place] or Plasma mg/dL [facility] ([facility] : [address] ? ? S ? Bun 14 mg/dL 7-17 Final [place] mg/dL [facility] ([facility] : [address] ? ? S ? Crea 1.00 mg/dL 0.52-1.04 Final [place] mg/dL [facility] ([facility] : [address] ? ? S ? Ca 9.5 mg/dL 8.4-10.2 Final [place] mg/dL [facility] ([facility] : [address] ? ? S ? Na 140 mmol/L 137-145 Final [place] mmol/L [facility] ([facility] : [address] ? ? S Low K 3.0 mmol/L 3.5-5.1 Final [place] mmol/L [facility] ([facility] : [address] ? ? S High Cl 113 mmol/L 98-107 Final [place] mmol/L [facility] ([facility] : [address] ? ? S Low Tco2 17.0 22.0-30.0 Final [place] mmol/L mmol/L [facility] ([facility]) : [address] 04/10/2020 BMP, Serum S High g/r 186 mg/dL 74-106 Final [place] or Plasma mg/dL [facility] ([facility] : [address] ? ? S ? Bun 17 mg/dL 7-17 Final [place] mg/dL [facility] ([facility] : [address] ? ? S ? Crea 1.00 mg/dL 0.52-1.04 Final [place] mg/dL [facility] ([facility] : [address] ? ? S ? Ca 9.7 mg/dL 8.4-10.2 Final [place] mg/dL [facility] ([facility] : [address] ? ? S ? Na 141 mmol/L 137-145 Final [place] mmol/L [facility] ([facility] : [address] ? ? S Low K 3.3 mmol/L 3.5-5.1 Final [place] mmol/L [facility] ([facility] : [address] ? ? S High Cl 112 mmol/L 98-107 Final [place] mmol/L [facility] ([facility]) : [address] ? ? S Low Tco2 18.0 22.0-30.0 Final [place] mmol/L mmol/L [facility] ([facility]) : [address] 04/08/2020 BMP, Serum S High g/r 186 mg/dL 74-106 Final [place] or Plasma mg/dL [facility] ([facility] : [address] ? ? S ? Bun 16 mg/dL 7-17 Final [place] mg/dL [facility] ([facility]) : [address] ? ? S ? Crea 0.90 mg/dL 0.52-1.04 Final [place] mg/dL [facility] ([facility] : [address] ? ? S ? Ca 9.1 mg/dL 8.4-10.2 Final [place] mg/dL [facility] ([facility] : [address] ? ? S ? Na 141 mmol/L 137-145 Final [place] mmol/L [facility] ([facility]) : [address] ? ? S Low K 3.3 mmol/L 3.5-5.1 Final [place] mmol/L [facility] ([facility] : [address] ? ? S High Cl 114 mmol/L 98-107 Final [place] mmol/L [facility] ([facility] : [address] ? ? S Low Tco2 16.0 22.0-30.0 Final [place] mmol/L mmol/L [facility] ([facility]) : [address] 04/05/2020 BMP, Serum S High g/r 158 mg/dL 74-106 Final [place] or Plasma mg/dL [facility] ([facility] : [address] ? ? S ? Bun 12 mg/dL 7-17 Final [place] mg/dL [facility] ([facility] : [address] ? ? S High Crea 1.10 mg/dL 0.52-1.04 Final Nor th mg/dL [facility] ([facility] : [address] ? ? S Low Ca 8.3 mg/dL 8.4-10.2 Final [place] mg/dL [facility] ([facility] : [address] ? ? S ? Na 142 mmol/L 137-145 Final [place] mmol/L [facility] ([facility] : [address] ? ? S ? K 3.9 mmol/L 3.5-5.1 Final [place] mmol/L [facility] ([facility] : [address] ? ? S High Cl 122 mmol/L 98-107 Final [place] mmol/L [facility] ([facility] : [address] ? ? S CRITICAL Tco2 13.0 22.0-30.0 Final [place] LOW mmol/L mmol/L [facility] ([facility]) : [address] 04/05/2020 Ph, Venous BLD Low Venous 7.24 [pH] 7.32-7.43 Fi nal [place] pH [pH] [facility] : [address] ? ? BLD ? Pco2 34 mm[hg] 33-47 Final [place] mm[hg] [facility] ([facility]) : [address] ? ? BLD CRITICAL TCO2, 15 mmol/L ? Final [place] LOW Venous [facility] ([facility] : [address] ? ? BLD ? Base -12.0 ? Final [place] mmol/L [facility] ([facility]) : [address] 04/05/2020 CMP, Serum S High g/r 131 mg/dL 74-106 Final [place] or Plasma mg/dL [facility] ([facility] : [address] ? ? S ? Bun 11 mg/dL 7-17 Final [place] mg/dL [facility] ([facility] : [address] ? ? S ? Crea 0.90 mg/dL 0.52-1.04 Final [place] th mg/dL [facility] ([facility] : [address] ? ? S Low Ca 8.1 mg/dL 8.4-10.2 Final [place] mg/dL [facility] ([facility] : [address] ? ? S ? Na 141 mmol/L 137-145 Final [place] mmol/L [facility] ([facility]) : [address] ? ? S ? K 3.6 mmol/L 3.5-5.1 Final [place] mmol/L [facility] ([facility] : [address] ? ? S High Cl 120 mmol/L 98-107 Final [place] mmol/L [facility] (Internal) : [address] ? ? S CRITICAL Tco2 13.0 22.0-30.0 Final [place] LOW mmol/L mmol/L [facility] ([facility] : [address] ? ? S ? Tp 6.9 g/dL 6.3-8.2 Final [place] g/dL [facility] ([facility] : [address] ? ? S ? Alb 3.5 g/dL 3.5-5.0 Final [place] g/dL [facility] ([facility] : [address] ? ? S ? Tbil 0.4 mg/dL 0.2-1.3 Final [place] mg/dL [facility] ([facility] : [address] ? ? S ? Alp 98 U/L 50-136 Final [place] U/L [facility]) : [address] ? ? S High Alt 55 U/L 9-52 U/L Final [place] (Sgpt) [facility]) : [address] ? ? S High Ast 43 U/L 14-36 U/L Final [place] (Sgot) [facility] (Internal) : [address] 04/05/2020 Cbc BLD ? Wbc 9.9 5.0-10.0 Final Nort h 10*3/uL 10*3/uL [facility] : [address] ? ? BLD ? Rbc 4.81 4.10-5.30 Final [place] 10*6/uL 10*6/uL [facility] ([facility] : [address] ? ? BLD ? Hgb 12.9 g/dL 12.0-16.0 Final Nort h g/dL [facility] ([facility] : [address] ? ? BLD ? Hct 39.2 % 37.0-47.0 Final [place] % [facility] ([facility] : [address] ? ? BLD ? Mcv 81.5 fL 80.0-96.0 Final [place] fL [facility] ([facility] : [address] ? ? BLD ? Mch 26.8 pg 26.0-32.0 Final [place] pg [facility] (Internal) : [address] ? ? BLD ? Mchc 32.9 g/dL 31.0-35.0 Final Nort h g/dL [facility] ([facility] : [address] ? ? BLD High Rdw 17.4 % 11.5-14.5 Final [place] % [facility] (Internal) : [address] ? ? BLD ? Plt 300 130-450 Final [place] 10*3/uL 10*3/uL [facility] ([facility] : [address] ? ? BLD ? Anc 6.23 ? Final [place] 10*3/uL [facility] (Internal) : [address] 04/05/2020 BMP, Serum S High g/r 188 mg/dL 74-106 Final [place] or Plasma mg/dL [facility] ([facility] : [address] ? ? S ? Bun 10 mg/dL 7-17 Final [place] mg/dL [facility] ([facility] : [address] ? ? S High Crea 1.10 mg/dL 0.52-1.04 Final [place] th mg/dL [facility] ([facility] : [address] ? ? S ? Ca 8.8 mg/dL 8.4-10.2 Final [place] mg/dL [facility] (Internal) : [address] ? ? S ? Na 141 mmol/L 137-145 Final [place] mmol/L [facility] (Internal) : [address] ? ? S Low K 3.3 mmol/L 3.5-5.1 Final [place] mmol/L [facility] (Internal) : [address] ? ? S High Cl 117 mmol/L 98-107 Final [place] mmol/L [facility] (Internal) : [address] ? ? S CRITICAL Tco2 15.0 22.0-30.0 Final [place] LOW mmol/L mmol/L [facility] ([facility] : [address] 04/04/2020 BMP, Serum S High g/r 128 mg/dL 74-106 Final [place] or Plasma mg/dL [facility] ([facility] : [address] ? ? S ? Bun 15 mg/dL 7-17 Final [place] mg/dL [facility] ([facility] : [address] ? ? S High Crea 1.10 mg/dL 0.52-1.04 Final [place] mg/dL [facility] ([facility] : [address] ? ? S ? Ca 8.4 mg/dL 8.4-10.2 Final [place] mg/dL [facility] ([facility] : [address] ? ? S ? Na 143 mmol/L 137-145 Final [place] mmol/L [facility] ([facility] : [address] ? ? S CRITICAL K 2.3 mmol/L 3.5-5.1 Final [place] LOW mmol/L [facility] ([facility]) : [address] ? ? S High Cl 121 mmol/L 98-107 Final [place] mmol/L [facility] ([facility]) : [address] ? ? S CRITICAL Tco2 12.0 22.0-30.0 Final [place] LOW mmol/L mmol/L [facility] [address] [facility] 04/[facility] Phosphorus, S ? Phos 2.5 mg/dL 2.5-4.5 Jasmin l [place] Serum or mg/dL [facility] : [address] 04/04/2020 BMP, Serum S High g/r 183 mg/dL 74-106 Final [place] or Plasma mg/dL [facility] (Internal) : [address] ? ? S ? Bun 13 mg/dL 7-17 Final [place] mg/dL [facility] ([facility] : [address] ? ? S ? Crea 1.00 mg/dL 0.52-1.04 Final [place] th mg/dL [facility] ([facility] : [address] ? ? S Low Ca 7.7 mg/dL 8.4-10.2 Final [place] mg/dL [facility] ([facility] : [address] ? ? S ? Na 142 mmol/L 137-145 Final [place] mmol/L [facility] ([facility]) : [address] ? ? S CRITICAL K 2.4 mmol/L 3.5-5.1 Final [place] th LOW mmol/L [facility] ([facility]) : [address] ? ? S High Cl 121 mmol/L 98-107 Final [place] mmol/L [facility] (Internal) : [address] ? ? S CRITICAL Tco2 12.0 22.0-30.0 Final [place] LOW mmol/L mmol/L [facility] [address] [facility] 04/04/2020 Potassium, UR ? U-K, 12 mmol/L 12-62 Final [place] Urine Spot mmol/L [facility] [address] [facility] 04/04/2020 Creatinine, UR Low U-crea, 18 mg/dL 30-125 Jasmin l [place] Urine Spot mg/dL [facility] [address] [facility] 04/04/2020 BMP, Serum S High g/r 107 mg/dL 74-106 Final [place] or Plasma mg/dL [facility] ([facility] : [address] ? ? S ? Bun 11 mg/dL 7-17 Final [place] mg/dL [facility] ([facility]) : [address] ? ? S High Crea 1.10 mg/dL 0.52-1.04 Final Nor th mg/dL [facility] ([facility]) : [address] ? ? S Low Ca 8.2 mg/dL 8.4-10.2 Final [place] mg/dL [facility] ([facility]) : [address] ? ? S ? Na 143 mmol/L 137-145 Final [place] mmol/L [facility] ([facility]) : [address] ? ? S CRITICAL K 2.5 mmol/L 3.5-5.1 Final Nor th LOW mmol/L [facility] (Internal) : [address] ? ? S High Cl 121 mmol/L 98-107 Final [place] mmol/L [facility] (Internal) : [address] ? ? S CRITICAL Tco2 13.0 22.0-30.0 Final [place] LOW mmol/L mmol/L [facility] ([facility]) : [address] 04/04/2020 BMP, Serum S High g/r 150 mg/dL 74-106 Final [place] or Plasma mg/dL [facility] ([facility] : [address] ? ? S ? Bun 12 mg/dL 7-17 Final [place] mg/dL [facility] ([facility]) : [address] ? ? S High Crea 1.10 mg/dL 0.52-1.04 Final Nor th mg/dL [facility] (Internal) : [address] ? ? S Low Ca 8.0 mg/dL 8.4-10.2 Final [place] mg/dL [facility] ([facility] : [address] ? ? S ? Na 143 mmol/L 137-145 Final [place] mmol/L [facility] ([facility]) : [address] ? ? S Low K 2.9 mmol/L 3.5-5.1 Final [place] mmol/L [facility] ([facility]) : [address] ? ? S High Cl 121 mmol/L 98-107 Final [place] mmol/L [facility] ([facility]) : [address] ? ? S CRITICAL Tco2 13.0 22.0-30.0 Final [place] LOW mmol/L mmol/L [facility] ([facility]) : [address] 04/04/2020 Ph, Venous BLD Low Venous 7.24 [pH] 7.32-7.43 Fi nal [place] pH [pH] [facility] ([facility] : [address] ? ? BLD Low Pco2 31 mm[hg] 33-47 Final [place] mm[hg] [facility] ([facility]) : [address] ? ? BLD CRITICAL TCO2, 14 mmol/L ? Final [place] LOW Venous [facility] ([facility]) : [address] ? ? BLD ? Base -12.8 ? Final [place] mmol/L [facility] ([facility]) : [address] 04/04/2020 BMP, Serum S High g/r 208 mg/dL 74-106 Final [place] or Plasma mg/dL [facility] ([facility] : [address] ? ? S ? Bun 13 mg/dL 7-17 Final [place] mg/dL [facility] ([facility]) : [address] ? ? S High Crea 1.10 mg/dL 0.52-1.04 Final Nor th mg/dL [facility] (Internal) : [address] ? ? S Low Ca 8.3 mg/dL 8.4-10.2 Final [place] mg/dL [facility] ([facility]) : [address] ? ? S ? Na 141 mmol/L 137-145 Final [place] mmol/L [facility] (Internal) : [address] ? ? S Low K 3.0 mmol/L 3.5-5.1 Final [place] mmol/L [facility] ([facility] : [address] ? ? S High Cl 118 mmol/L 98-107 Final [place] mmol/L [facility] (Internal) : [address] ? ? S CRITICAL Tco2 14.0 22.0-30.0 Final [place] LOW mmol/L mmol/L [facility] ([facility] : [address] [facility] 04/04/2020 Aldosterone, S ? Aldoster 7.4 NG/dL <=21 F inal [place] Blood one, S NG/dL [facility] : [address] [facility] 04/04/2020 Renin ? Renin 15 NG/mL/h ? Final No rth Activity, Activity, Coun try Plasma (Pra) [facility] Lab (Internal) : [address] 04/03/2020 CBC W/ Auto BLD High Wbc 15.7 5.0-10.0 Final [place] Diff 10*3/uL 10*3/uL [facility] (Internal) : [address] ? ? BLD High Rbc 5.36 4.10-5.30 Final [place] 10*6/uL 10*6/uL [facility] (Internal) : [address] ? ? BLD ? Hgb 14.3 g/dL 12.0-16.0 Final Nort h g/dL [facility] (Internal) : [address] ? ? BLD ? Hct 42.3 % 37.0-47.0 Final [facility] (Internal) : [address] ? ? BLD Low Mcv 78.9 fL 80.0-96.0 Final [facility] (Internal) : [address] ? ? BLD ? Mch 26.7 pg 26.0-32.0 Final [facility] (Internal) : [address] ? ? BLD ? Mchc 33.8 g/dL 31.0-35.0 Final Nort h g/dL [facility] (Internal) : [address] ? ? BLD High Rdw 16.5 % 11.5-14.5 Final [facility] (Internal) : [address] ? ? BLD ? Plt 367 130-450 Final [place] 10*3/uL 10*3/uL [facility] (Internal) : [address] ? ? BLD ? Anc 11.01 ? Final [place] 10*3/uL [facility] (Internal) : [address] ? ? BLD High Nlr 3.25 0.00-3.20 Final [facility] (Internal) : [address] ? ? BLD ? Neutro 70.0 % 40.0-75.0 Final [facility] (Internal) : [address] ? ? BLD ? Lymph 21.6 % 20.0-50.0 Final [facility] (Internal) : [address] ? ? BLD ? [place] 6.7 % 2.0-10.0 Final [place] % [facility] (Internal) : [address] ? ? BLD Low Eos 0.7 % 1.0-6.0 % Final [facility] (Internal) : [address] ? ? BLD ? Baso 0.4 % 0.0-1.0 % Final [facility] (Internal) : [address] ? ? BLD ? Ig 0.6 % 0.0-0.9 % Final [facility] (Internal) : [address] [facility] 04/03/2020 Lactic Acid, S ? [place] 1.0 mmol/L 0.7-2.1 Fi nal [place] Blood mmol/L [facility] (Internal) : [address] [facility] 04/03/2020 UR ? Hcgu negative negative Final [place] Test, Urine Count [facility] (Internal) : [address] [facility] 04/03/2020 RBC BLD ? Aniso small ? Final [place] Morphology, Count [facility] [facility]Internal[facility] : [address] t ? ? BLD ? Micro small ? Final [facility] L ab (Internal) : [address] [facility] 04/03/2020 CK (Creatine S ? Cpk 117 U/L 30-135 Final [place] Kinase), U/L [facility] Total, Serum Hosp ital Lab (Internal) : [address] [facility] 04/03/2020 CRP, High S High Rcrp 1.13 mg/dL 0.10-0.30 [facility] Sensitivity, mg/dL Coun try Serum or Hospital Lab Plasma (Internal) : [address] [facility] 04/03/2020 CMP, Serum S High g/r 142 mg/dL 74-106 Final [place] or Plasma mg/dL [facility] L ab (Internal) : [address] t ? ? S ? Bun 16 mg/dL 7-17 Final [place] mg/dL [facility] L ab (Internal) : [address] t ? ? S High Crea 1.10 mg/dL 0.52-1.[address] [facility] th mg/dL [facility] L ab (Internal) : [address] t ? ? S ? Ca 9.1 mg/dL 8.4-10.2 Final [place] mg/dL [facility] ([facility] : [address] t ? ? S ? Na 141 mmol/L 137-145 Final [place] mmol/L [facility] (Internal) : [address] t ? ? S CRITICAL K <1.9 3.5-5.1 Final [place] LOW mmol/L mmol/L [facility] L [facility] (Internal) : [address] t ? ? S High Cl 118 mmol/L 98-107 Final [place] mmol/L [facility] (Internal) : [address] t ? ? S CRITICAL Tco2 12.0 22.0-30.0 Final [place] LOW mmol/L mmol/L [facility] (Internal) : [address] t ? ? S ? Tp 8.1 g/dL 6.3-8.2 Final [place] g/dL [facility] (Internal) : [address] t ? ? S ? Alb 4.3 g/dL 3.5-5.0 Final [place] g/dL [facility] (Internal) : [address] t ? ? S ? Tbil 0.3 mg/dL 0.2-1.3 Final [place] mg/dL [facility] (Internal) : [address] t ? ? S ? Alp 120 U/L 50-136 Final [place] U/L [facility] (Internal) : [address] t ? ? S High Alt 73 U/L 9-52 U/L Final [place] (Sgpt) [facility] (Internal) : [address] t ? ? S High Ast 38 U/L 14-36 U/L Final [place] (Sgot) [facility] (Internal) : [address] t 04/03/2020 BMP, Serum S High g/r 131 mg/dL 74-106 Final [place] or Plasma mg/dL [facility] (Internal) : [address] t ? ? S ? Bun 16 mg/dL 7-17 Final [place] mg/dL [facility] L [facility] (Internal) : [address] ? ? S ? Crea 1.00 mg/dL 0.52-1.04 Final [place] th mg/dL [facility] L [facility] (Internal) : [address] t ? ? S ? Ca 8.7 mg/dL 8.4-10.2 Final [place] mg/dL [facility] (Internal) : [address] t ? ? S ? Na 140 mmol/L 137-145 Final [place] mmol/L [facility] Hospital L ab (Internal) : [address] t ? ? S CRITICAL K <1.9 3.5-5.1 Final [place] LOW mmol/L mmol/L [facility] (Internal) : [address] t ? ? S High Cl 118 mmol/L 98-107 Final [place] mmol/L [facility] Hospital L ab (Internal) : [address] t ? ? S CRITICAL Tco2 12.0 22.0-30.0 Final [place] LOW mmol/L mmol/L [facility] Hospital L ab (Internal) : [address] [facility] 04/03/2020 ESR BLD ? Esr 15 mm/h 0-30 mm/h Final No rth (Erythrocyte Coun try Sedimentatio Hosp ital Lab n Rate), (Interna l): Blood [address] [facility] 04/03/2020 Magnesium, S High mg 2.7 mg/dL 1.6-2.3 Final [place] QN, Serum or mg/dL Coun try Plasma Hospital L ab (Internal) : [address] [facility] Phosphorus, S Low Phos 2.1 mg/dL 2.5-4.5 Jasmin l [place] Serum or mg/dL [facility] Plasma [facility] L ab (Internal) : [address] [facility]2020 Urinalysis, UR ? UA-color straw pale Final [place] Dipstick, yellow [place] Reflex Micro Hosp ital Lab (Internal) : [address] ? ? UR ? UA-appea clear clear Final [facility] r [facility] L [facility] (Internal) : [address] ? ? UR ? UA-spec 1.010 1.003-1.0 Final [place] Grav 35 [facility] L ab (Internal) : [address] [place] ? ? UR ? UA-pH 7.0 [pH] 4.6-8.0 Final [place] [pH] [facility] ab (Internal) : [address] [place] ? ? UR ? UA-leuk negative negative Final Nort h Est [facility] ab (Internal) : [address] [place] ? ? UR ? UA-nitri negative negative Final Nor th te [facility] ab (Internal) : [address] [place] ? ? UR ? UA-prot negative negative Final Nort h [facility] ab (Internal) : [address] [place] ? ? UR ? UA-gluc negative negative Final Nort h [facility] ab (Internal) : [address] [place] ? ? UR ? UA-keton negative negative Final [facility] e [facility] ab (Internal) : [address] [place] ? ? UR ? UA-urobi normal normal Final [facility] ab (Internal) : [address] ? ? UR ? UA-bili negative negative Final Nort h [facility] ab (Internal) : [address] ? ? UR ABNORMAL UA-blood trace negative Final [facility] ab (Internal) : [address] [place] [address] 04/03/2020 Urinalysis, UR ? UA-WBC 0-3 [hpf] 0-3 [hpf] F inal [place] Microscopic Count [facility] ab (Internal) : [address] ? ? UR ? UA-RBC 0-2 [hpf] 0-2 [hpf] Final [facility] ab (Internal) : [address] ? ? UR ABNORMAL UA-bacte few [hpf] none seen Final [place] sandy [hpf] [facility] ab (Internal) : [address] ? ? UR ABNORMAL UA-epith moderate none seen Final [place] elial [hpf] [hpf] [facility] ab (Internal) : [address] ? ? UR ? UA-mucus none seen none seen Final N orth [hpf] [hpf] [facility] ab (Internal) : [address] ? ? UR ? Clue few [hpf] ? Final [facility] L ab (Internal) : [address] 04/03/2020 Culture UR ? Final microbiolo ? Final N orth ([place] gy results Count ry Count), Hospital Lab Urine (Internal) : [address] 04/03/2020 Thyroid S ? Tsh 0.94 0.47-4.68 Final No rth [place], u[IU]/mL u[IU]/mL Coun [facility] Serum Hospital L ab (Internal) : [address] 11/02/2019 Rh Immune BLD ? Rhogam complete ? Final [place] Globulin [facility] Screening Hospita l Lab (Internal) : [address] 11/02/2019 Cell S ? Fetalscr negative negative Fi nal [place] Screen, [facility] Blood [facility] L ab (Internal) : [address] 11/01/2019 CBC W/ Auto BLD High Wbc 16.7 5.0-10.0 Final [place] Diff 10*3/uL 10*3/uL [facility] L ab (Internal) : [address] ? ? BLD Low Rbc 4.04 4.10-5.30 Final [place] 10*6/uL 10*6/uL [facility] L ab (Internal) : [address] ? ? BLD Low Hgb 10.7 g/dL 12.0-16.0 Final Nort h g/dL [facility] L ab (Internal) : [address] ? ? BLD Low Hct 33.6 % 37.0-47.0 Final [facility] L ab (Internal) : [address] ? ? BLD ? Mcv 83.2 fL 80.0-96.0 Final [facility] L ab (Internal) : [address] ? ? BLD ? Mch 26.5 pg 26.0-32.0 Final [place] pg [facility] L ab (Internal) : [address] ? ? BLD ? Mchc 31.8 g/dL 31.0-35.0 Final Nort h g/dL [facility] L ab (Internal) : [address] ? ? BLD High Rdw 14.6 % 11.5-14.5 Final [facility] Hospital L ab (Internal) : [address] ? ? BLD ? Plt 306 130-450 Final [place] 10*3/uL 10*3/uL [facility] Hospital L ab (Internal) : [address] 11/01/2019 Type + BLD ? Abo B ? Final [facility] Blood Hospital L ab (Internal) : [address] t ? ? BLD ? Rh negative ? Final [facility] Hospital L ab (Internal) : [address] ? ? BLD ? Ab Scrn negative negative Final [facility] Hospital L ab (Internal) : [address] 11/01/2019 Differential BLD ? Polys 75 % 40-75 % Final [facility] Blood Hospital L ab (Internal) : [address] t ? ? BLD ? Bands 1 % 0-5 % Final [facility] Hospital L ab (Internal) : [address] ? ? BLD Low Lymphs 16 % 20-50 % Final [facility] Hospital L ab (Internal) : [address] t ? ? BLD ? [place] 5 % 2-10 % Final [facility] Hospital L ab (Internal) : [address] ? ? BLD ? Eos 0 % 0-6 % Final [facility] Hospital L ab (Internal) : [address] t ? ? BLD ? Baso 0 % 0-1 % Final [facility] Hospital L ab (Internal) : [address] ? ? BLD ? Atyp 0 % ? Final [facility] Hospital L ab (Internal) : [address] t ? ? BLD High [place] 3 % 0-0 % Final [facility] Hospital L ab (Internal) : [address] t ? ? BLD ? Plts, adequate adequate Final [facility] Hospital L ab (Internal) : [address] ? ? BLD ? RBC normal normal [facility] Hospital L ab (Internal) : [address] 11/01/2019 Neutrophil BLD ? Anc-manu 12.65 ? Final [place] Count, al 10*3/uL [facility] Lab (Anc), Blood (Int ernal): [address] 11/01/2019 Nlr-manual BLD High Nlr - 4.75 0.00-3.20 Final [place] Manual [facility] Hospital ab (Internal) : [address] 10/27/2019 SARS CoV 2 SWAB ? Covid-19 negative negative Fi nal [place] RNA [facility] Country (COVID-19), Result Hospi michael Lab QL, airplane cleaner-PCR, (Int ernal): Respiratory [address] ? ? SWAB ? Performi [facility] ? Final [facility] Lab hospital [facility] lab Hospital L ab (Internal) : [address] 10/19/2019 Streptococcu ? Final microbiolo ? Fin al [place] s Group B, gy results Co untry Culture, Hospital Lab Vaginal or (Inter nal): Rectal [address] 08/08/2019 Glucose S High F Gluc, 122 mg/dL 74-106 Final [place] Tolerance S mg/dL [place] Test, Hospital [facility] Gestational, (Int ernal): 3-Hour [address] ? ? S High 1 hr 233 mg/dL 70-140 Final [place] gluc,S mg/dL [facility] Hospital L ab (Internal) : [address] t ? ? S High 2 hr 241 mg/dL 70-140 Final [place] gluc,S mg/dL [facility] Hospital ab (Internal) : [address] ? ? S High 3 hr 206 mg/dL 70-140 Final [place] gluc,S mg/dL [facility] Hospital ab (Internal) : [address] t 08/03/2019 Glucose S High Gluc, 1 218 mg/dL 70-140 Final [place] Tolerance hr Pp mg/dL [place] Test, Hospital [facility] Gestational, (Int ernal): 1-Hour [address] t 07/26/2019 Urinalysis, UR ? UA-color yellow pale Final [place] Dipstick, yellow [place] Reflex Micro Hosp ital Lab (Internal) : [address] t ? ? UR ABNORMAL UA-appea hazy clear Final [facility] Hospital L ab (Internal) : [address] [place] ? ? UR ? UA-spec 1.020 1.003-1.0 Final [place] Grav 35 [facility] ab (Internal) : [address] [place] ? ? UR ? UA-pH 7.0 [pH] 4.6-8.0 Final [place] [pH] [facility] (Internal) : [address] ? ? UR ? UA-leuk negative negative [facility] [address] [place] [address] ? ? UR ? UA-nitri negative negative Final [facility] ab (Internal) : [address] ? ? UR ABNORMAL UA-prot 1+ negative Final [facility] (Internal) : [address] ? ? UR ? UA-gluc negative negative Final [facility] (Internal) : [address] ? ? UR ABNORMAL UA-keton 2+ negative Final [facility] (Internal) : [address] ? ? UR ? UA-urobi normal normal Final [facility] (Internal) : [address] ? ? UR ? UA-bili negative negative Final [facility] (Internal) : [address] ? ? UR ? UA-blood negative negative Final [facility] (Internal) : [address] 07/26/2019 Urinalysis, UR ABNORMAL UA-WBC 5-10 [hpf] 0-3 [hpf ] Final [place] Microscopic Count [facility] ab (Internal) : [address] ? ? UR ? UA-RBC 0-2 [hpf] 0-2 [hpf] Final [facility] ab (Internal) : [address] ? ? UR ABNORMAL UA-bacte moderate none seen Final [place] sandy [hpf] [hpf] [facility] (Internal) : [address] ? ? UR ABNORMAL UA-epith moderate none seen Final [place] elial [hpf] [hpf] [facility] (Internal) : [address] ? ? UR ? UA-mucus none seen none seen Final N orth [hpf] [hpf] [facility] L ab (Internal) : [address] 07/26/2019 Culture UR ? Final microbiolo ? Final N orth ([place] gy results Count ry Count), Hospital Lab Urine (Internal) : [address] 07/25/2019 CBC W/ Auto BLD High Wbc 23.5 5.0-10.0 Final [place] Diff 10*3/uL 10*3/uL [facility] Hospital L ab (Internal) : [address] t ? ? BLD ? Rbc 4.56 4.10-5.30 Final [place] 10*6/uL 10*6/uL [facility] Hospital L ab (Internal) : [address] ? ? BLD ? Hgb 13.5 g/dL 12.0-16.0 Final Nort h g/dL [facility] L ab (Internal) : [address] ? ? BLD ? Hct 39.3 % 37.0-47.0 Final [facility] L ab (Internal) : [address] ? ? BLD ? Mcv 86.2 fL 80.0-96.0 Final [facility] L ab (Internal) : [address] ? ? BLD ? Mch 29.6 pg 26.0-32.0 Final [place] pg [facility] L ab (Internal) : [address] ? ? BLD ? Mchc 34.4 g/dL 31.0-35.0 Final Nort h g/dL [facility] L ab (Internal) : [address] ? ? BLD ? Rdw 13.9 % 11.5-14.5 Final [facility] L ab (Internal) : [address] ? ? BLD ? Plt 336 130-450 Final [place] 10*3/uL 10*3/uL [facility] L ab (Internal) : [address] 07/25/2019 CMP, Serum S High g/r 146 mg/dL 74-106 Final [place] or Plasma mg/dL [facility] Hospital L ab (Internal) : [address] t ? ? S ? Bun 11 mg/dL 7-17 Final [place] mg/dL [facility] (Internal) : [address] ? ? S ? Crea 0.70 mg/dL 0.52-1.04 Final Nor th mg/dL [facility] L [facility] (Internal) : [address] ? ? S ? Ca 10.0 mg/dL 8.4-10.2 Final Nort h mg/dL [facility] L [facility] (Internal) : [address] ? ? S ? Na 138 mmol/L 137-145 Final [place] mmol/L [facility] Hospital L ab (Internal) : [address] ? ? S Low K 2.7 mmol/L 3.5-5.1 Final [place] mmol/L [facility] (Internal) : [address] ? ? S ? Cl 107 mmol/L 98-107 Final [place] mmol/L [facility] Hospital L ab (Internal) : [address] ? ? S Low Tco2 16.0 22.0-30.0 Final [place] mmol/L mmol/L [facility] Hospital L ab (Internal) : [address] ? ? S ? Tp 7.9 g/dL 6.3-8.2 Final [place] g/dL [facility] L ab (Internal) : [address] ? ? S ? Alb 4.3 g/dL 3.5-5.0 Final [place] g/dL [facility] Hospital L ab (Internal) : [address] ? ? S ? Tbil 0.3 mg/dL 0.2-1.3 Final [place] mg/dL [facility] Hospital L ab (Internal) : [address] ? ? S ? Alp 92 U/L 50-136 Final [place] U/L [facility] Hospital L ab (Internal) : [address] ? ? S ? Alt <10 U/L 9-52 U/L Final [place] (Sgpt) [facility] Hospital L ab (Internal) : [address] ? ? S ? Ast 20 U/L 14-36 U/L Final [place] (Sgot) [facility] Hospital L ab (Internal) : [address] 07/25/2019 Lipase, S ? Lip 139 U/L 23-300 Final Nort h Serum or U/L [facility] Plasma Hospital L ab (Internal) : [address] 07/25/2019 Rapid Flu NASAL ? Final microbiolo ? Final [place] (A+B) gy results Countr Hospital L ab (Internal) : [address] 07/25/2019 Differential BLD High Polys 84 % 40-75 % Final [place] , [facility], [facility] Blood Hospital L ab (Internal) : [address] ? ? BLD ? Bands 0 % 0-5 % Final [facility] Hospital L ab (Internal) : [address] ? ? BLD Low Lymphs 8 % 20-50 % Final [facility] Hospital L ab (Internal) : [address] ? ? BLD ? [place] 7 % 2-10 % Final [facility] Hospital L ab (Internal) : [address] ? ? BLD ? Eos 0 % 0-6 % Final [facility] Hospital L ab (Internal) : [address] ? ? BLD ? Baso 0 % 0-1 % Final [facility] Hospital L ab (Internal) : [address] ? ? BLD ? Atyp 0 % ? Final [facility] Hospital L ab (Internal) : [address] ? ? BLD ? [place] 1 % ? Final [facility] Hospital L ab (Internal) : [address] ? ? BLD ? Plts, adequate adequate Final [place] Est. [facility] Hospital L ab (Internal) : [address] ? ? BLD ? RBC normal normal Final [place] Morpholog Country y Hospital L ab (Internal) : [address] 07/25/2019 Neutrophil BLD ? Anc-manu 19.73 ? Final [place] Count, al 10*3/uL [facility] Absolute [facility] Lab (Anc), Blood (Int ernal): [address] 05/31/2019 Quad Screen, S - Results normal ? Final [place] Maternal, Summary risk Countr y Serum Hospital L ab (Internal) : [address] ? ? S - Down 7,600 <1/270 Final [place] Syndrome Country Screen Hospital L ab Risk (Internal) : Estimate [address] [place] ? ? S - Down 1/,000 ? Final [facility] Maternal Hospital Lab Age Risk (Interna l): [address] ? ? S - Trisomy <1/50,000 <1/100 Final [place] [address] Screen Country Risk Hospital L ab Estimate (Interna l): [address] ? ? S - Neural 06/29,700 ? Final [place] Tube [facility] Defect Hospital L ab Risk (Internal) : Estimate [address] ? ? S - Afp 34.0 NG/mL ? Final [facility] Hospital L ab (Internal) : [address] ? ? S - Afp Mom 1.02 MOM <2.50 MOM Final [facility] Hospital L ab (Internal) : [address] ? ? S - Ue3 0.92 NG/mL ? Final [facility] Hospital L ab (Internal) : [address] ? ? S - Ue3 Mom 1.06 MOM ? Final [facility] Hospital L ab (Internal) : [address] ? ? S - HCG, 49.5 IU/mL ? Final [facility] Hospital L ab (Internal) : [address] ? ? S - HCG, 2.42 MOM ? Final [facility] Hospital L ab (Internal) : [address] ? ? S - Inhibin 0.69 MOM ? Final [facility] Hospital L ab (Internal) : [address] ? ? S - Inhibin 149 pg/mL ? Final [facility] Hospital L ab (Internal) : [address] ? ? S - Interpre see below ? Final [facility] Hospital L ab (Internal) : [address] ? ? S - Recommen none. ? Final [facility] Follow up Hospita l Lab (Internal) : [address] ? ? S - Specimen 05/31/19 ? Final [facility] Date Hospital L ab (Internal) : [address] ? ? S - Maternal 89 ? Final [facility] Hospital L ab (Internal) : [address] [place] ? ? S - Calculat 24 years ? Final [place] ed Age at Country [facility] L ab (Internal) : [address] ? ? S - Maternal 192 lbs ? Final [place] Weight [facility] Hospital L ab (Internal) : [address] ? ? S - Insulin no ? Final [place] Dependent [facility] Diabetes Hospital Lab (Internal) : [address] ? ? S - Patient non-black ? Final [place] Race [facility] Hospital L ab (Internal) : [address] ? ? S - Current smoker ? Final [place] Cigarette [facility] Smoking Hospital Lab Status (Internal) : [address], [place] ? ? S - [place] by 11/11/2019 ? Final [place] LMP [facility] Hospital L ab (Internal) : [address] ? ? S - Ga on 16,4 wk,d ? Final [place] Collectio Country n by Hospital L ab Dates (Internal) : [address] ? ? S - Ga Used dates ? Final [place] in Risk estimate Country Estimate Hospital Lab (Internal) : [address] ? ? S - Number 1 ? Final [place] of Country Fetuses Hospital Lab (Internal) : [address] ? ? S - Number not ? Final [place] of applicable Countr y [facility] Lab (Internal) : [address] ? ? S - IVF no ? Final [place] Country Hospital L ab (Internal) : [address] ? ? S - Prev no ? Final [place] Down Country (T21) / Hospital Lab Trisomy (Internal ): [address] ? ? S - Prev no ? Final [place] Country W/ Neural Hospita l Lab Tube (Internal) : Defect [address] ? ? S - Patient no ? Final North or Father Country of Baby Hospital Lab Has a Ntd (Supervisor General al): [address] ? ? S - Initial initial ? Final [place] or Repeat testing Countr y Testing Hospital Lab (Internal) : [address] ? ? S - Physicia [phone] ? Final Nor th n Phone 10 Country Number Hospital L ab (Internal) : [address] ? ? S - General see below ? Final [place] Test [facility] Lab on (Internal) : [address] 05/31/2019 CFTR Gene BLD - Result negative ? Final [place] Detection, Summary Count ry Blood or Hospital Lab Tissue (Internal) : [address] [place] ? ? BLD - Result none of ? Final [place] the listed Countr y mutations Hospita l Lab were (Internal) : detected. [address], [place] ? ? BLD - Interpre see below ? Final Nort h tation [facility] Hospital L ab (Internal) : [address] ? ? BLD - Specimen WB whole ? Final [place] blood [facility] Hospital L ab (Internal) : [address] ? ? BLD - Method see below ? Final [facility] Hospital L ab (Internal) : [address] ? ? BLD - Released krzysztof Barton. ? Final [place] [facility] pH.D[facility] Hospital L ab (Internal) : [address] 04/17/2019 Chlamydia - Specimen see ? Final [place] Trachomatis Descripti comments Country + Neisseria on Hospi michael Lab Gonorrhea (Supervisor General al): rRNA, QL, [address] ? ? - Chlamydi negative ? Final [place] a Result [facility] Hospital L ab (Internal) : [address] ? ? - GC negative ? Final [place] Result [facility] ab (Internal) : [address] 04/17/2019 Pap Test, MISC - Pap see report ? Final [place] [facility] Lab (Internal) : [address] ? ? MISC - Report results ? Final [place] below [facility] Hospital L ab (Internal) : [address] 03/15/2019 Cbc BLD High Wbc 10.8 5.0-10.0 Final Nort h 10*3/uL 10*3/uL [facility] Hospital L ab (Internal) : [address] ? ? BLD - Rbc 4.43 4.10-5.30 Final [place] 10*6/uL 10*6/uL [facility] L ab (Internal) : [address] ? ? BLD - Hgb 13.3 g/dL 12.0-16.0 Final Nort h g/dL [facility] Hospital L ab (Internal) : [address] ? ? BLD - Hct 38.9 % 37.0-47.0 Final [facility] L ab (Internal) : [address] ? ? BLD - Mcv 87.8 fL 80.0-96.0 Final [facility] L ab (Internal) : [address] ? ? BLD - Mch 30.0 pg 26.0-32.0 Final [facility] Hospital L ab (Internal) : [address] ? ? BLD - Mchc 34.2 g/dL 31.0-35.0 Final Nort h g/dL [facility] L ab (Internal) : [address] ? ? BLD - Plt 279 130-450 Final [place] 10*3/uL 10*3/uL [facility] Hospital L ab (Internal) : [address] ? ? BLD - Rdw 13.2 % 11.5-14.5 Final [facility] L ab (Internal) : [address] 03/15/2019 Type + BLD - Abo B ? Final [facility] L ab (Internal) : [address] ? ? BLD - Rh negative ? Final [facility] ab (Internal) : [address] ? ? BLD - Ab Scrn negative negative Final Nor h [facility] Hospital L ab (Internal) : [address] 03/15/2019 Urinalysis, UR - UA-color pale pale Final [facility] yellow yellow [facility] L ab (Internal) : [address] ? ? UR ABNORMAL UA-appea hazy clear Final [facility] Hospital L ab (Internal) : [address] ? ? UR - UA-spec 1.010 1.003-1.0 Final [place] Grav 35 [facility] L ab (Internal) : [address] ? ? UR - UA-pH 7.0 [pH] 4.6-8.0 Final [place] [pH] [facility] L ab (Internal) : [address] t ? ? UR - UA-leuk negative negative Final Nort h [facility] ab (Internal) : [address] ? ? UR - UA-nitri negative negative Final [facility] ab (Internal) : [address] t ? ? UR - UA-prot negative negative Final [facility] ab (Internal) : [address] ? ? UR - UA-gluc negative negative [facility] : [address] ? ? UR - UA-keton negative negative Final [facility] ab (Internal) : [address] ? ? UR - UA-urobi normal normal Final [facility] ab (Internal) : [address] ? ? UR - UA-bili negative negative Final [facility] ab (Internal) : [address] ? ? UR - UA-blood negative negative Final [facility] ab (Internal) : [address] t ? ? UR - UA-WBC 0-3 [hpf] 0-3 [hpf] Final [facility] ab (Internal) : [address] t ? ? UR - UA-RBC 0-2 [hpf] 0-2 [hpf] Final [facility] ab (Internal) : [address] t ? ? UR ABNORMAL UA-bacte few [hpf] none seen Final [place] sandy [hpf] [facility] ab (Internal) : [address] t ? ? UR ABNORMAL UA-epith moderate none seen Final [place] elial [hpf] [hpf] [facility] ab (Internal) : [address] ? ? UR ABNORMAL UA-mucus few [hpf] none seen Final [place] [hpf] [facility] ab (Internal) : [address] t ? ? UR - Amorph rare [hpf] ? Final [facility] ab (Internal) : [address] 03/15/2019 Culture UR - Final microbiolo ? Final N orth ([place] gy results Count ry Count), Hospital Lab Urine (Internal) : [address] 03/15/2019 HBsAg S - Hep B negative negat Final Nort h (Hepatitis B Surface Cou ntry Surface Ag), Ag Hosp ital Lab Serum (Internal) : [address] [facility] 03/15/2019 Hepatitis C S - Hep C Ab negative negat [facility] Virus Ab, W Rfx PCR Coun [facility] Hospital L ab (Internal) : [address] [facility] 03/15/2019 HIV (1+2) Ab S - HIV 1/2 negative negat [facility] Screen, Antigen [facility] L [facility] Antibody (Interna l): [address] [facility] 03/15/2019 RPR (Rapid BLD - Obs RPR non-reacti non-react [facility] Er Plasma ve [facility] Reagin), Hospital Lab Serum (Internal) : [address] [facility] 03/15/2019 Rubella Ab, BLD - Obs Rbla positive positive F inal [facility] L ab (Internal) : [address] [facility] 03/03/2019 beta-HCG, S High HCG, 46.7 2.0-6.0 Final No rth Quantitative Quant [IU]/mL [IU]/mL Co untry , Serum or Hospit al Lab Plasma (Internal) : [address] [facility] 03/01/2019 beta-HCG, S High HCG, 15.2 2.0-6.0 Final No rth Quantitative Quant [IU]/mL [IU]/mL Co untry , Serum or Hospit al Lab Plasma (Internal) : [address] [facility] t 12/12/2018 beta-HCG, S - HCG, <2.4 2.0-6.0 Final No rth Quantitative Quant [IU]/mL [IU]/mL Co untry , Serum or Hospit al Lab Plasma (Internal) : [address] [facility] 12/07/2018 beta-HCG, S High HCG, 6.1 2.0-6.0 Final No rth Quantitative Quant [IU]/mL [IU]/mL Co untry , Serum or Hospit al Lab Plasma (Internal) : [address] [facility] 11/30/2018 BMP, Serum S High g/r 158 mg/dL 74-106 Final [place] or Plasma mg/dL [facility] (Internal) : [address] t ? ? S - Bun 10 mg/dL 7-17 Final [place] mg/dL [facility] L ab (Internal) : [address] t ? ? S - Crea 0.60 mg/dL 0.52-1.04 Final Nor th mg/dL [facility] (Internal) : [address] t ? ? S - Ca 9.7 mg/dL 8.4-10.2 Final [place] mg/dL [facility] L ab (Internal) : [address] t ? ? S Low Na 136 mmol/L 137-145 Final [place] mmol/L [facility] L ab (Internal) : [address] t ? ? S Low K 3.3 mmol/L 3.5-5.1 Final [place] mmol/L [facility] Hospital L ab (Internal) : [address] t ? ? S - Cl 104 mmol/L 98-107 Final [place] mmol/L [facility] L ab (Internal) : [address] t ? ? S - Tco2 22.0 22.0-30.0 Final [place] mmol/L mmol/L [facility] L ab (Internal) : [address] 11/30/2018 CBC W/ Auto BLD High Wbc 19.6 5.0-10.0 Final [place] Diff 10*3/uL 10*3/uL [facility] (Internal) : [address] ? ? BLD - Rbc 4.81 4.10-5.30 Final [place] 10*6/uL 10*6/uL [facility] (Internal) : [address] ? ? BLD - Hgb 14.2 g/dL 12.0-16.0 Final Nort h g/dL [facility] L ab (Internal) : [address] ? ? BLD - Hct 41.6 % 37.0-47.0 Final [place] % [facility] L ab (Internal) : [address] ? ? BLD - Mcv 86.5 fL 80.0-96.0 Final [place] fL [facility] L ab (Internal) : [address] ? ? BLD - Mch 29.5 pg 26.0-32.0 Final [place] pg [facility] L ab (Internal) : [address] t ? ? BLD - Mchc 34.1 g/dL 31.0-35.0 Final Nort h g/dL [facility] Hospital L ab (Internal) : [address] t ? ? BLD - Rdw 13.1 % 11.5-14.5 Final [facility] L ab (Internal) : [address] t ? ? BLD - Plt 313 130-450 Final [place] 10*3/uL 10*3/uL [facility] Hospital L ab (Internal) : [address] 11/30/2018 Differential BLD High Polys 87 % 40-75 % Final [place] , [facility], [facility] Blood Hospital L ab (Internal) : [address] ? ? BLD - Bands 0 % 0-5 % Final [facility] Hospital L ab (Internal) : [address] t ? ? BLD Low Lymphs 8 % 20-50 % Final [facility] Hospital L ab (Internal) : [address] ? ? BLD - [place] 3 % 2-10 % Final [facility] Hospital L ab (Internal) : [address] ? ? BLD - Eos 0 % 0-6 % Final [facility] Hospital L ab (Internal) : [address] t ? ? BLD - Baso 0 % 0-1 % Final [facility] Hospital L ab (Internal) : [address] t ? ? BLD - Atyp 2 % ? Final [facility] L ab (Internal) : [address] t ? ? BLD - Plts, adequate adequate Final [place] Est. [facility] L ab (Internal) : [address] ? ? BLD - RBC normal normal Final [place] Morpholog [facility] Hospital L ab (Internal) : [address] 11/30/2018 Neutrophil BLD - Anc-manu 17.02 ? Final [place] Count, al 10*3/uL [facility] Absolute Hospital Lab (Anc), Blood (Int ernal): [address] t 11/30/2018 Type + BLD - Abo B ? Final [facility], [facility] L ab (Internal) : [address] t ? ? BLD - Rh negative ? Final [facility] L ab (Internal) : [address] pillo ? ? BLD ABNORMAL Ab Scrn positive negative Final No rth [facility] L ab (Internal) : [address] pillo 11/30/2018 Antibody BLD - Antibody anti-D ? Final N orth Screen W/ Id [facility] Identificati Hosp ital Lab on, Serum (Supervisor General al): [address] 11/30/2018 Pathology TISS - Report results ? Final N orth Study below [facility] L ab (Internal) : [address] pillo 11/29/2018 CBC W/ Auto BLD High Wbc 12.5 5.0-10.0 Final [place] Diff 10*3/uL 10*3/uL [facility] L ab (Internal) : [address] pillo ? ? BLD - Rbc 4.41 4.10-5.30 Final [place] 10*6/uL 10*6/uL [facility] L ab (Internal) : [address] ? ? BLD - Hgb 13.0 g/dL 12.0-16.0 Final Nort h g/dL [facility] L ab (Internal) : [address] ? ? BLD - Hct 38.5 % 37.0-47.0 Final [facility] L ab (Internal) : [address] ? ? BLD - Mcv 87.3 fL 80.0-96.0 Final [facility] L ab (Internal) : [address] ? ? BLD - Mch 29.5 pg 26.0-32.0 Final [place] pg [facility] L ab (Internal) : [address] ? ? BLD - Mchc 33.8 g/dL 31.0-35.0 Final Nort h g/dL [facility] L ab (Internal) : [address] ? ? BLD - Rdw 13.1 % 11.5-14.5 Final [facility] % [facility] (Internal) : [address] t ? ? BLD - Plt 266 130-450 Final [place] 10*3/uL 10*3/uL [facility] (Internal) : [address] 11/29/2018 CMP, Serum S High g/r 138 mg/dL 74-106 Final [place] or Plasma mg/dL [facility] (Internal) : [address] ? ? S - Bun 8 mg/dL 7-17 Final [place] mg/dL [facility] (Internal) : [address] ? ? S - Crea 0.60 mg/dL 0.52-1.04 Final Nor th mg/dL [facility] (Internal) : [address] ? ? S - Ca 9.3 mg/dL 8.4-10.2 Final [place] mg/dL [facility] (Internal) : [address] ? ? S - Na 137 mmol/L 137-145 Final [place] mmol/L [facility] (Internal) : [address] ? ? S Low K 3.3 mmol/L 3.5-5.1 Final [place] mmol/L [facility] (Internal) : [address] t ? ? S - Cl 107 mmol/L 98-107 Final [place] mmol/L [facility] (Internal) : [address] ? ? S - Tco2 22.0 22.0-30.0 Final [place] mmol/L mmol/L [facility] (Internal) : [address] ? ? S - Tp 7.0 g/dL 6.3-8.2 Final [place] g/dL [facility] (Internal) : [address] t ? ? S - Alb 4.1 g/dL 3.5-5.0 Final [place] g/dL [facility] (Internal) : [address] t ? ? S - Tbil 0.3 mg/dL 0.2-1.3 Final [place] mg/dL [facility] (Internal) : [address] t ? ? S - Alp 75 U/L 50-136 Final [place] U/L [facility] (Internal) : [address] ? ? S - Alt 24 U/L 9-52 U/L Final [place] (Sgpt) [facility] L ab (Internal) : [address] ? ? S - Ast 22 U/L 14-36 U/L Final [place] (Sgot) [facility] Hospital L ab (Internal) : [address] 11/29/2018 Differential BLD - Polys 68 % 40-75 % Final [place] , Manual, [facility] Blood Hospital L ab (Internal) : [address] ? ? BLD - Bands 0 % 0-5 % Final [facility] Hospital L ab (Internal) : [address] ? ? BLD - Lymphs 28 % 20-50 % Final [facility] Hospital L ab (Internal) : [address] ? ? BLD - [place] 4 % 2-10 % Final [facility] Hospital L ab (Internal) : [address] ? ? BLD - Eos 0 % 0-6 % Final [facility] Hospital L ab (Internal) : [address] ? ? BLD - Baso 0 % 0-1 % Final [facility] Hospital L ab (Internal) : [address] ? ? BLD - Atyp 0 % ? Final [facility] L ab (Internal) : [address] ? ? BLD - Plts, adequate adequate Final [facility] Hospital L ab (Internal) : [address] ? ? BLD - RBC normal normal Final [place] Morpholog [facility] Hospital L ab (Internal) : [address] 11/29/2018 Neutrophil BLD - Anc-manu 8.51 ? Final [place] Count, al 10*3/uL [facility] Lab (Anc), Blood (Int ernal): [address] 11/29/2018 beta-HCG, S High HCG, 527.6 2.0-6.0 Final No rth Quantitative Quant [IU]/mL [IU]/mL Co untry , Serum or Hospit al Lab Plasma (Internal) : [address] 11/27/2018 beta-HCG, S High HCG, 1083.7 2.0-6.0 Final No rth Quantitative Quant [IU]/mL [IU]/mL Co untry , Serum or Hospit al Lab Plasma (Internal) : [address] 11/25/2018 beta-HCG, S High HCG, 848.5 2.0-6.0 Final No rth Quantitative Quant [IU]/mL [IU]/mL Co untry , Serum or Hospit al Lab Plasma (Internal) : [address] 11/22/2018 Cbc BLD High Wbc 12.0 5.0-10.0 Final Nort h 10*3/uL 10*3/uL [facility] (Internal) : [address] ? ? BLD - Rbc 4.91 4.10-5.30 Final North 10*6/uL 10*6/uL [facility] (Internal) : [address] ? ? BLD - Hgb 14.6 g/dL 12.0-16.0 Final Nort h g/dL [facility] Hospital L ab (Internal) : [address] ? ? BLD - Hct 43.4 % 37.0-47.0 Final [facility] L ab (Internal) : [address] ? ? BLD - Mcv 88.4 fL 80.0-96.0 Final [facility] Hospital L ab (Internal) : [address] ? ? BLD - Mch 29.7 pg 26.0-32.0 Final [place] pg [facility] Hospital L ab (Internal) : [address] ? ? BLD - Mchc 33.6 g/dL 31.0-35.0 Final Nort [place] g/dL [facility] Hospital L ab (Internal) : [address] ? ? BLD - Plt 305 130-450 Final [place] 10*3/uL 10*3/uL [facility] Hospital L ab (Internal) : [address] ? ? BLD - Rdw 12.9 % 11.5-14.5 Final [facility] L ab (Internal) : [address] 11/22/2018 Urinalysis, UR - UA-color yellow pale Final North Complete yellow [facility] L ab (Internal) : [address] t ? ? UR - UA-appea clear clear Final North r [facility] ab (Internal) : [address] t ? ? UR - UA-spec <=1.005 1.003-1.0 Final Nort h Grav 35 [facility] L ab (Internal) : [address] t ? ? UR - UA-pH 6.5 [pH] 4.6-8.0 Final North [pH] [facility] ab (Internal) : [address] ? ? UR - UA-leuk negative negative Final Nort h Est [facility] ab (Internal) : [address] ? ? UR - UA-nitri negative negative Final [facility] ab (Internal) : [address] ? ? UR - UA-prot negative negative Final [facility] ab (Internal) : [address] ? ? UR - UA-gluc negative negative Final [facility] ab (Internal) : [address] t ? ? UR - UA-keton negative negative Final [facility] ab (Internal) : [address] t ? ? UR - UA-urobi normal normal Final [facility] ab (Internal) : [address] t ? ? UR - UA-bili negative negative Final [facility] ab (Internal) : [address] t ? ? UR - UA-blood negative negative Final [facility] ab (Internal) : [address] ? ? UR - UA-WBC 0-3 [hpf] 0-3 [hpf] Final [facility] ab (Internal) : [address] ? ? UR - UA-RBC 0-2 [hpf] 0-2 [hpf] Final [facility] ab (Internal) : [address] ? ? UR - UA-bacte rare [hpf] none seen Final [place] sandy [hpf] [facility] ab (Internal) : [address] ? ? UR - UA-epith rare [hpf] none seen Final [place] elial [hpf] [facility] L ab (Internal) : [address] t ? ? UR - UA-mucus none seen none seen Final N orth [hpf] [hpf] [facility] L ab (Internal) : [address] [place] 11/22/2018 Type + BLD - Abo B ? Final [facility], [facility] Serum Hospital L ab (Internal) : [address] t ? ? BLD - Rh negative ? Final [facility] L ab (Internal) : [address] t ? ? BLD - Ab Scrn negative negative Final Nort [facility] L ab (Internal) : [address] 11/22/2018 Culture UR - Final microbiolo ? Final N orth ([place] gy results Count ry Count), Hospital Lab Urine (Internal) : [address] 11/22/2018 Hepatitis C S - Hep C Ab negative negat [facility] Virus Ab, W Rfx PCR Coun [facility] L ab (Internal) : [address] [facility] 11/22/2018 HIV (1+2) Ab S - HIV 1/2 negative negat [facility] Screen, Antigen [facility] Serum and [facility] L ab Antibody (Interna l): [address] [place] 11/22/2018 HBsAg S - Hep B negative negat Final Nort h (Hepatitis B Surface Cou ntry Surface Ag), Ag Hosp ital Lab Serum (Internal) : [address] 11/22/2018 RPR (Rapid BLD - Obs RPR non-reacti non-react [facility] Er Plasma ve tai [facility] Reagin), Hospital Lab Serum (Internal) : [address] [facility] Rubella Ab, BLD - Obs Rbla positive positive F inal [facility] L ab (Internal) : [address] 11/22/2018 ? Hcg positive ? ? P _ob/Blower Insulator: 81 Test, Urine Medic al [facility] 09/22/2018 CBC W/ Auto BLD High Wbc 10.7 5.0-10.0 [facility] Er Diff 10*3/uL 10*3/uL [facility] L ab (Internal) : [address] ? ? BLD - Rbc 4.85 4.10-5.30 Final [place] 10*6/uL 10*6/uL [facility] L ab (Internal) : [address] ? ? BLD - Hgb 14.3 g/dL 12.0-16.0 Final Nort h g/dL [facility] Hospital L ab (Internal) : [address] ? ? BLD - Hct 42.6 % 37.0-47.0 Final [facility] L ab (Internal) : [address] ? ? BLD - Mcv 87.8 fL 80.0-96.0 Final [facility] Hospital L ab (Internal) : [address] ? ? BLD - Mch 29.5 pg 26.0-32.0 Final [facility] Hospital L ab (Internal) : [address] ? ? BLD - Mchc 33.6 g/dL 31.0-35.0 Final Nort h g/dL [facility] Hospital L ab (Internal) : [address] ? ? BLD - Rdw 13.1 % 11.5-14.5 Final [facility] L ab (Internal) : [address] ? ? BLD - Plt 303 130-450 Final [place] 10*3/uL 10*3/uL [facility] Hospital L ab (Internal) : [address] ? ? BLD - Anc 6.42 ? Final [place] 10*3/uL [facility] Hospital L ab (Internal) : [address] ? ? BLD - Neutro 59.8 % 40.0-75.0 Final [facility] Hospital L ab (Internal) : [address] ? ? BLD - Lymph 30.3 % 20.0-50.0 Final [facility] Hospital L ab (Internal) : [address] ? ? BLD - [place] 7.9 % 2.0-10.0 Final [facility] Hospital L ab (Internal) : [address] ? ? BLD - Eos 1.1 % 1.0-6.0 % Final [facility] Hospital L ab (Internal) : [address] t ? ? BLD - Baso 0.5 % 0.0-1.0 % Final [facility] Hospital L ab (Internal) : [address] ? ? BLD - Ig 0.4 % 0.0-0.9 % Final [facility] Hospital L ab (Internal) : [address] 09/22/2018 CMP, Serum S - g/r 99 mg/dL 74-106 Final [place] or Plasma mg/dL [facility] Hospital L ab (Internal) : [address] t ? ? S - Bun 13 mg/dL 7-17 Final [place] mg/dL [facility] Hospital L ab (Internal) : [address] t ? ? S - Crea 0.70 mg/dL 0.52-1.04 Final [facility] mg/dL [facility] L ab (Internal) : [address] t ? ? S - Ca 9.4 mg/dL 8.4-10.2 Final [place] mg/dL [facility] Hospital L ab (Internal) : [address] t ? ? S - Na 138 mmol/L 137-145 Final [place] mmol/L [facility] Hospital L ab (Internal) : [address] t ? ? S Low K 3.2 mmol/L 3.5-5.1 Final [place] mmol/L [facility] Hospital L ab (Internal) : [address] t ? ? S High Cl 108 mmol/L 98-107 Final [place] mmol/L [facility] Hospital L ab (Internal) : [address] t ? ? S - Tco2 22.0 22.0-30.0 Final [place] mmol/L mmol/L [facility] Hospital L ab (Internal) : [address] t ? ? S - Tp 7.3 g/dL 6.3-8.2 Final [place] g/dL [facility] Hospital L ab (Internal) : [address] t ? ? S - Alb 4.1 g/dL 3.5-5.0 Final [place] g/dL [facility] Hospital L ab (Internal) : [address] ? ? S - Tbil 0.4 mg/dL 0.2-1.3 Final [place] mg/dL [facility] Hospital L ab (Internal) : [address] ? ? S - Alp 71 U/L 50-136 Final [place] U/L [facility] Hospital L ab (Internal) : [address] ? ? S - Alt 21 U/L 9-52 U/L Final [place] (Sgpt) [facility] L ab (Internal) : [address] ? ? S - Ast 22 U/L 14-36 U/L Final [place] (Sgot) [facility] Hospital L ab (Internal) : [address] 09/22/2018 beta-HCG, S - HCG, <2.4 2.0-6.0 Final No rth Quantitative Quant [IU]/mL [IU]/mL Co untry , Serum or Hospit al Lab Plasma (Internal) : [address] 09/22/2018 ESR BLD - Esr 6 mm/h 0-30 mm/h Final Nor th (Erythrocyte Coun try Sedimentatio Hosp ital Lab n Rate), (Interna l): Blood [address] 07/06/2018 beta-HCG, S - HCG, <2.4 2.0-6.0 Final No rth Quantitative Quant [IU]/mL [IU]/mL Co untry , Serum or Hospit al Lab Plasma (Internal) : [address] 05/11/2018 CBC W/ Auto BLD - Wbc 7.0 5.0-10.0 Final [place] Diff 10*3/uL 10*3/uL [facility] Hospital L ab (Internal) : [address] ? ? BLD - Rbc 4.93 4.10-5.30 Final [place] 10*6/uL 10*6/uL [facility] Hospital L ab (Internal) : [address] ? ? BLD - Hgb 14.6 g/dL 12.0-16.0 Final Nort h g/dL [facility] L ab (Internal) : [address] ? ? BLD - Hct 43.9 % 37.0-47.0 Final [place] % [facility] Hospital L ab (Internal) : [address] ? ? BLD - Mcv 89.0 fL 80.0-96.0 Final [facility] Hospital L ab (Internal) : [address] ? ? BLD - Mch 29.6 pg 26.0-32.0 Final [place] pg [facility] Hospital L ab (Internal) : [address] ? ? BLD - Mchc 33.3 g/dL 31.0-35.0 Final Nort h g/dL [facility] Hospital L ab (Internal) : [address] ? ? BLD - Rdw 12.6 % 11.5-14.5 Final [facility] L ab (Internal) : [address] ? ? BLD - Plt 271 130-450 Final [place] 10*3/uL 10*3/uL [facility] L ab (Internal) : [address] 05/11/2018 beta-HCG, S - HCG, <2.4 2.0-6.0 Final No rth Quantitative Quant [IU]/mL [IU]/mL Co untry , Serum or Hospit al Lab Plasma (Internal) : [address] 05/11/2018 Differential BLD - Polys 62 % 40-75 % Final [place] , [facility] [place], [facility] Blood Hospital L ab (Internal) : [address] ? ? BLD - Bands 0 % 0-5 % Final [facility] L ab (Internal) : [address] ? ? BLD - Lymphs 24 % 20-50 % Final [facility] L ab (Internal) : [address] ? ? BLD - [place] 10 % 2-10 % Final [facility] Hospital L ab (Internal) : [address] ? ? BLD - Eos 3 % 0-6 % Final [facility] Hospital L ab (Internal) : [address] ? ? BLD - Baso 1 % 0-1 % Final [facility] Hospital L ab (Internal) : [address] ? ? BLD - Atyp 0 % ? Final [facility] Hospital L ab (Internal) : [address] ? ? BLD - Plts, adequate adequate Final [facility] Hospital L ab (Internal) : [address] ? ? BLD - RBC normal normal Final [facility] : [address] t 05/11/2018 Neutrophil BLD - Anc-manu 4.31 ? Final [place] Count, al 10*3/uL [facility] Lab (Anc), Blood (Int ernal): [address] 05/11/2018 Enteric STL - Salmonel see ? Final No rth Bacteria, la PCR comments Count Organism Hospital Lab Specific (Interna l): Culture, [address] ? ? STL - Shigella see ? Final [place] PCR comments [facility] (Internal) : [address] ? ? STL - Campylob see ? Final [place] acter PCR comments Count Hospital L ab (Internal) : [address] ? ? STL - Shiga see ? Final [place] Toxin PCR comments Count Hospital L ab (Internal) : [address] 05/11/2018 C Diff Toxin STOOL - C. Diff negative negative F inal [place] Genes, Qual, ([facility]) Coun try PCR, Stool Hospit al Lab (Internal) : [address] ? Venipuncture ? Location Right ? ? P _nc Primary Antecubita Care l [place]: [address], [place] ? ? ? Needle 21g ? ? P_nc Prim marlo Vacutainer Care [place]: [address], [place] ? ? ? Number 1 ? ? P_nc Prim marlo of Care Attempts [place]: [address], [place] ? ? ? Successf Yes ? ? P_nc Pr imary ul Care [place]: [address], [place] ? ? ? Dressing Pressure ? ? P_nc Primary Band-aid Care Applied [place]: [address], [place] ? ? ? Initials LMK ? ? P_nc Pr imary Care [place]: [address], [place] ? ? Hcg negative ? ? P_nc Primary Test, Urine Care [place]: [address], [place] ? ? Hcg negative ? ? P_nc Primary Test, Urine Care [place]: [address], [place] ? Urinalysis, ? Color Yellow ? ? P_nc Primary Dipstick, Care Reflex Micro [place]: [address], [place] ? ? ? Appearan Cloudy ? ? P_nc Pr imary ce Care [place]: [address], [place] ? ? ? Glucose Normal ? ? P_nc Zonia iftikhar Care [place]: [address], [place] ? ? ? Bilirubi Negative ? ? P_nc Primary n Care [place]: [address], [place] ? ? ? Ketones Negative ? ? P_nc P rimary Care [place]: [address], [place] ? ? ? Specific 1.020 ? ? P_nc Pr imary Cofield Care [place]: [address], [place] ? ? ? Blood Negative ? ? P_nc Zonia iftikhar Care [place]: [address], [place] ? ? ? Ph 7.5 ? ? P_nc Prima ry Care [place]: [address], [place] ? ? ? Protein Trace ? ? P_nc Zonia iftikhar Care [place]: [address], [place] ? ? ? Urobilin 0.2 ? ? P_nc Pr imary ogen Care [place]: [address], [place] ? ? ? Nitrite negative ? ? P_nc P rimary Care [place]: [address], [place] ? ? ? Leukocyt Negative ? ? P_nc Primary e Care Esterase [place]: [address], [place] Past Encounters 04/15/2020 Hypokalemia Raz Saeed MD: [address] [place] [phone], Ph. 12/13/2019 Care; History of Gestational Diabetes Mellitus; Contraception Care Management Hugo Alcantara MD: [address] [place] [phone], Ph. 11/17/2019 Care Hugo Alcantara MD: [address] [place] [phone], Ph. 10/27/2019 Gestational Diabetes Mellitus; Routine A ntenatal Care Hugo Alcantara MD: [address] [place] [phone], Ph. 10/19/2019 Gestational Diabetes Mellitus; Gastroeso phageal Reflux Disease in Hugo Alcantara MD: [address] [place] [phone], Ph. 10/16/2019 Gestational Diabetes Mellitus Hugo Alcantara MD: [address] [place] [phone], Ph. 10/12/2019 Routine Care; Gestational Diab etes Mellitus Karli Haq [facility]: [address] [place] [phone], Ph. 10/05/2019 Gestational Diabetes Mellitus Hugo Alcantara MD: [address] [place] [phone], Ph. 10/02/2019 Seen by [employer] And Former [employer] Pauly Coates MD: [address] [place] [phone], Ph. 10/02/2019 Hugo Alcantara MD: [address] [place] [phone], Ph. 09/29/2019 Gestational Diabetes Mellitus uHgo Alcantara MD: [address] [place] [phone], Ph. 09/25/2019 Gestational Diabetes Mellitus Hugo Alcantara MD: [address] [place] [phone], Ph. 09/21/2019 Gestational Diabetes Mellitus; Low Back Pain in Hugo Alcantara MD: [address] [place] [phone], Ph. 09/14/2019 Gestational Diabetes Mellitus Hugo Alcantara MD: [address] [place] [phone], Ph. 09/07/[address]: [address] [place] [address] [place] [phone], Ph. 09/07/2019 Gestational Diabetes Mellitus Hugo Alcantara MD: [address] [place] [phone], Ph. 09/01/2019 Gestational Diabetes Mellitus; Cristian Paulino RN: [address] [place] [phone], Ph. 08/31/2019 Gestational Diabetes Mellitus Hugo Alcantara MD: [address] [place] [phone], Ph. 08/24/2019 Gestational Diabetes Mellitus; Blood Nay up B Rh(D) Negative Hugo Alcantara MD: [address] [place] [phone], Ph. 08/24/[address]: [address] [place] [address] [facility] [place] [phone], Ph. 08/10/2019 Cristian Paulino RN: [address] [place] [phone], Ph. 08/10/[address]: [address] [place] [address] [place] [phone], Ph. 08/03/2019 Routine Care Hugo Alcantara MD: [address] [place] [phone], Ph. Social History Tobacco Smoking Status Former Smoker (1/4 pack per Notes: Quit in August 2017 day) uses a juul sometime s. Vaccine List Vaccine Type DTP 04/15/1995 DTP-Hib 1994 1994 01/08/1995 03/17/1996 Hep B, adolescent or pediatric 1994 1994 04/28/1995 HPV, quadrivalent 06/01/2007 08/15/2007 01/12/2008 influenza, seasonal, injectable 06/06/2010 03/21/2011 IPV 03/16/1996 meningococcal MCV4P 06/01/2007 MMR 07/15/1995 04/15/1999 OPV 1994 1994 01/08/1995 Tdap 08/15/2007 09/21/2019?0.5 mL varicella 07/25/1998 08/15/2007 Plan of Care Patient Instructions Safety Instructions: - It is im portant that you routinely eating while taking an intermediate insulin like NPH and fast acting insulin like Humalog as they can cause symptoms of hypoglycemia - Always store unopened pens in the ref rigerator - Pens in current use may remain at room temperature - Always use a new pen needle with every injection - Insulin should be injected in to a fa tty area on the back of the arms, thighs , or 2 inches from the naval and avoid injecting in any areas that are irritated, open wounds, and rotate your injection sites. Humalog (clear solution) - Prime w ith 2 units before every dose * 10 units in the morning immediately before breakfast * 10 units in the evening immediately be fore dinner NPH (cloudy solution) - You will n eed to roll the pen between your hands 10 times, followed by inverting the pen 10 times to ensure that the medication is white and cloudy without lumps or particl es - Prime with 2 units before ever y dose * 20 units in the morning at the same time every day * 10 units before bed at the same time every day Reminders Provider Appointments None recorded. ? ? Lab None recorded. ? ? Referral None recorded. ? ? Procedures None recorded. ? ? Surgeries None recorded. ? ? Imaging None recorded. ? ? Vitals 04/15/2020 09:20AM Follow Up 20 Height Weight BMI Blood Pressure 162.56 cm 91.17 kg 34.5 kg/m2 116/68 mm[Hg] 12/13/2019 01:40PM Post 20 Height Weight BMI Blood Pressure 162.56 cm 89.36 kg 33.8 kg/m2 116/70 mm[Hg] 11/17/2019 02:50PM Post 20 Height Weight BMI Blood Pressure 162.56 cm 88 kg 33.3 kg/m2 130/78 mm[Hg] 10/27/2019 09:30AM Preop Clearance 30 Weight Blood Pressure 98.66 kg 130/78 mm[Hg] 10/19/2019 10:50AM OB 10 Weight Blood Pressure 97.1 kg 128/78 mm[Hg] 10/12/2019 10:20AM OB 20 Weight Blood Pressure 93.67 kg 118/66 mm[Hg] 10/05/2019 10:30AM OB 20 Weight Blood Pressure 92.76 kg 128/80 mm[Hg] 09/29/2019 11:30AM OB 20 Weight Blood Pressure 92.53 kg 128/84 mm[Hg] 09/21/2019 09:30AM OB 20 Weight Blood Pressure 90.38 kg 106/70 mm[Hg] 09/14/2019 10:50AM OB 10 Weight Blood Pressure 90.29 kg 128/68 mm[Hg] 09/07/2019 11:10AM OB 10 Weight Blood Pressure 88.45 kg 110/68 mm[Hg] 08/31/2019 11:20AM OB 10 Weight 88 kg 08/24/2019 09:20AM OB 10 Weight Blood Pressure 88.45 kg 114/62 mm[Hg] 08/03/2019 11:00AM OB 20 Weight Blood Pressure 89.5 kg 128/84 mm[Hg] 07/07/2019 11:20AM OB 20 Weight Blood Pressure 89.05 kg 100/62 mm[Hg] 06/08/2019 11:10AM OB 10 Weight Blood Pressure 88.45 kg 100/60 mm[Hg] 05/15/2019 03:10PM OB 10 Weight Blood Pressure 87.12 kg 102/66 mm[Hg] 04/17/2019 03:50PM New OB Weight Blood Pressure 85.47 kg 104/66 mm[Hg] 03/15/2019 09:30AM IOB 60 Height Weight Blood Pressure 162.56 cm 86.35 kg 104/62 mm[Hg] 12/12/2018 11:20AM Post Op 20 Height Blood Pressure 162.56 cm 104/72 mm[Hg] 11/29/2018 09:00AM OB 20 Height Weight BMI Blood Pressure 162.56 cm 85.87 kg 32.5 kg/m2 136/72 mm[Hg] 11/25/2018 04:10PM Office 20 Height Weight BMI Blood Pressure 162.56 cm 83.91 kg 31.8 kg/m2 122/68 mm[Hg] 11/22/2018 11:10AM New Patient 30 Height Weight BMI Blood Pressure 162.56 cm 83.91 kg 31.8 kg/m2 100/60 mm[Hg] 10/17/2018 01:40PM Follow Up 20 Height Weight BMI Blood Pressure 162.56 cm 85.73 kg 32.4 kg/m2 130/80 mm[Hg] 09/12/2018 04:20PM Acute 20 Height Weight BMI 162.56 cm 83.91 kg 31.8 kg/m2 05/11/2018 08:00AM Acute 20 Height Weight BMI Blood Pressure 162.56 cm 81.65 kg 30.9 kg/m2 110/70 mm[Hg] 04/25/2018 11:00AM Acute 20 Height Weight BMI Blood Pressure 162.56 cm 82.51 kg 31.2 kg/m2 110/76 mm[Hg] 03/29/2013 Height Weight Blood Pressure 165.1 cm 69.85 kg 114/66 mm[Hg] 07/15/2012 Height Weight Blood Pressure 165.1 cm 69.4 kg 120/62 mm[Hg] 09/10/2011 Height Weight Blood Pressure 165.1 cm 70.76 kg 126/74 mm[Hg] 07/31/2011 Weight Blood Pressure 69.85 kg 120/68 mm[Hg]
[2021-01-08 14:35] LABS: Anion Gap 13.8 mmol/L (3-11); BUN 12 mg/dL (7-18); CO2 17.2 mmol/L (21.0-32.0); Calcium 8.7 mg/dL (8.5-10.1); Chloride 110 mmol/L (98-107); Glucose 105 mg/dL (74-106); Potassium 4.2 mmol/L (3.5-5.1); Sodium 141 mmol/L (136-145)
== END 2021-01-08 08:17 | disposition home or self-care (01) ==
LOC: LBO 08:21
PROVIDERS: PCP Family Medicine; Visit Provider Family Medicine
DX: E87.6 Hypokalemia (principal)
CPT/HCPCS: 36415; 80048

== ENCOUNTER 2021-01-24 02:35 | Outpatient (CLI) | payer MEDICAID, SELFPAY ==
[2021-01-24 11:31] LABS: ALT 129 U/L (14-59); AST 66 U/L (15-37); Albumin 3.9 g/dL (3.4-5.0); Alkaline Phosphatase 137 U/L (46-116); Anion Gap 9.5 mmol/L (3-11); BUN 10 mg/dL (7-18); Bilirubin, Total 0.4 mg/dL (0.2-1.0); CO2 19.5 mmol/L (21.0-32.0); CREATININE 1.2 mg/dL (0.55-1.02); Calcium 9.3 mg/dL (8.5-10.1); Chloride 105 mmol/L (98-107); Glucose 142 mg/dL (74-106); Potassium 3.3 mmol/L (3.5-5.1); Sodium 134 mmol/L (136-145); Total Protein 8.3 g/dL (6.4-8.2)
[2021-01-24 11:32] LABS: HCG Quant, Pregnancy < 1 mIU/mL (1-3)
[2021-01-24 18:24] LABS: FSH 3.8 mIU/mL (See Note); LH 10.9 mIU/mL (See Note); Prolactin 6.2 ng/mL (See Table)
[2021-01-29 01:52] LABS: 17-Hydroxyprogesterone 80 ng/dL
== END 2021-01-24 02:36 | disposition home or self-care (01) ==
LOC: LBO 02:35
PROVIDERS: PCP Family Medicine; Visit Provider Obstetrics & Gynecology
DX: E11.9 Type 2 diabetes mellitus without complications (principal); N91.2 Amenorrhea, unspecified; E87.6 Hypokalemia; N25.89 Other disorders resulting from impaired renal tubular function; Z98.891 History of uterine scar from previous surgery
CPT/HCPCS: 36415; 80053; 83001; 83002; 83498; 84146; 84702

== ENCOUNTER 2021-02-14 03:34 | Outpatient (CLI) | payer MEDICAID, SELFPAY ==
--- NOTE | 2021-02-14 07:00 | DI.US_ITS ---
Exam(s) US PELVIS EXAM: US PELVIS CLINICAL HISTORY: check stripe, AMENORRHEA, DM, HYPOKALEMIA, N91.2, E11.9, E87.6 TECHNIQUE: Ultrasound performed using standard protocol. COMPARISON: No exams were available for comparison FINDINGS: Pelvic ultrasound was performed transabdominally and transvaginally. Uterus measures 8.4 x 3.1 x 4.9 cm. Endometrial stripe is homogeneous and about 4 millimeters in thickness. No free fluid identified in the cul-de-sac. There is a 28 millimeter in diameter simple cyst of the right ovary. Otherwise the ovaries are unrem arkable in appearance and show normal Doppler appearance. Right ovary measures 49 x 45 x 34 millimet ers and left ovary measures 35 x 34 x 21 millimeters. Limited scanning of the kidneys shows multiple areas of hyper echogenicity consistent with patient's history of renal disease. No evidence of hydronephrosis. IMPRESSION: Simple cyst of the right ovary. Otherwise unremarkable pelvic ultrasound. DATA REPOSITORY:
== END 2021-02-14 03:54 ==
PROVIDERS: PCP Family Medicine; Visit Provider Obstetrics & Gynecology
DX: E11.9 Type 2 diabetes mellitus without complications (principal); E87.6 Hypokalemia; N91.2 Amenorrhea, unspecified; N25.89 Other disorders resulting from impaired renal tubular function; Z98.891 History of uterine scar from previous surgery; Z87.59 Personal history of other complications of pregnancy, childbirth and the puerperium; N83.201 Unspecified ovarian cyst, right side
CPT/HCPCS: 76856

== ENCOUNTER 2021-04-15 15:05 | Outpatient (CLI) | payer MEDICAID, SELFPAY ==
[2021-04-15 15:47] LABS: BUN 15 mg/dL (7-18); CREATININE 1.2 mg/dL (0.55-1.02); Calcium 9.2 mg/dL (8.5-10.1); Chloride 106 mmol/L (98-107); Glucose 258 mg/dL (74-106); Potassium 3.1 mmol/L (3.5-5.1); Sodium 140 mmol/L (136-145)
== END 2021-04-15 15:06 | disposition home or self-care (01) ==
LOC: LBO 15:05
PROVIDERS: PCP Family Medicine; Visit Provider Family Medicine
DX: E87.6 Hypokalemia (principal)
CPT/HCPCS: 36415; 80048

== ENCOUNTER 2021-05-13 04:12 | Outpatient (CLI) | payer MEDICAID, SELFPAY ==
[2021-05-13 11:12] LABS: Anion Gap 15.2 mmol/L (3-11); BUN 15 mg/dL (7-18); CO2 15.8 mmol/L (21.0-32.0); CREATININE 1.1 mg/dL (0.55-1.02); Calcium 8.7 mg/dL (8.5-10.1); Chloride 109 mmol/L (98-107); Glucose 162 mg/dL (74-106); Sodium 140 mmol/L (136-145)
== END 2021-05-13 04:13 | disposition home or self-care (01) ==
LOC: LBO 04:12
PROVIDERS: PCP Family Medicine; Visit Provider Family Medicine
DX: N25.89 Other disorders resulting from impaired renal tubular function (principal)
CPT/HCPCS: 36415; 80048

== ENCOUNTER 2021-07-15 04:08 | Outpatient (CLI) | payer MEDICAID, SELFPAY ==
[2021-07-15 16:15] LABS: Anion Gap 17.9 mmol/L (3-11); BUN 15 mg/dL (7-18); CO2 15.1 mmol/L (21.0-32.0); CREATININE 1.4 mg/dL (0.55-1.02); Calcium 8.8 mg/dL (8.5-10.1); Chloride 100 mmol/L (98-107); Estimated GFR 45.11 (mL/min/1.73m2); Glucose 394 mg/dL (74-106); Sodium 133 mmol/L (136-145)
[2021-07-15 16:32] LABS: Potassium 2.8 mmol/L (3.5-5.1)
== END 2021-07-15 04:09 | disposition home or self-care (01) ==
LOC: LBO 04:08
PROVIDERS: PCP Family Medicine; Visit Provider Family Medicine
DX: E87.6 Hypokalemia (principal)
CPT/HCPCS: 36415; 80048

== ENCOUNTER 2021-08-15 04:25 | Outpatient (CLI) | payer MEDICAID, SELFPAY ==
[2021-08-15 13:32] LABS: Anion Gap 13.4 mmol/L (3-11); BUN 14 mg/dL (7-18); CO2 18.6 mmol/L (21.0-32.0); CREATININE 1.3 mg/dL (0.55-1.02); Calcium 9.3 mg/dL (8.5-10.1); Chloride 99 mmol/L (98-107); Estimated GFR 49.13 (mL/min/1.73m2); Potassium 3.1 mmol/L (3.5-5.1); Sodium 131 mmol/L (136-145)
[2021-08-15 13:38] LABS: Glucose 536 mg/dL (74-106)
== END 2021-08-15 04:26 | disposition home or self-care (01) ==
LOC: LBO 04:25
PROVIDERS: PCP Family Medicine; Visit Provider Family Medicine
DX: N25.89 Other disorders resulting from impaired renal tubular function (principal)
CPT/HCPCS: 36415; 80048

== ENCOUNTER 2021-10-07 02:25 | Outpatient (CLI) | payer MEDICAID, SELFPAY ==
[2021-10-07 12:12] LABS: Bilirubin Negative (Negative); Blood Negative (Negative); Clarity Clear (Clear); Glucose Negative (Negative); Ketones Negative (Negative); Leukocyte Esterase Trace (Negative); Nitrite Negative (Negative); Urobilinogen 0.2 EU/dL (Up TO 0.2)
[2021-10-07 12:44] LABS: Bacteria Moderate HPF (Negative); C & S Indicated? Yes; Casts Negative LPF (Negative); Crystals Negative HPF (Negative); Epithelial Cells Few HPF (Negative); Mucus Negative (Negative); RBC 0-2 HPF (0-2)
[2021-10-07 13:27] LABS: Creatinine,Urine 17.84 mg/dL; POTASSIUM,URINE RANDOM 35 mmol/L
[2021-10-07 13:29] LABS: Anion Gap 11.4 mmol/L (3-11); BUN 18 mg/dL (7-18); CO2 19.6 mmol/L (21.0-32.0); CREATININE 1.2 mg/dL (0.55-1.02); Calcium 8.9 mg/dL (8.5-10.1); Chloride 108 mmol/L (98-107); Estimated GFR 53.89 (mL/min/1.73m2); Glucose 180 mg/dL (74-106); Magnesium 2.3 mg/dL (1.8-2.5); PHOSPHORUS 2.3 mg/dL (2.6-4.7); Potassium 3.2 mmol/L (3.5-5.1); Sodium 139 mmol/L (136-145)
[2021-10-08 10:40] LABS: Parathyroid Hormone,Intact 14 pg/mL (19-88)
== END 2021-10-07 02:26 | disposition home or self-care (01) ==
LOC: LBO 02:25
PROVIDERS: PCP Family Medicine; Visit Provider Internal Medicine Nephrology
DX: E87.6 Hypokalemia (principal); E87.2 Acidosis
CPT/HCPCS: 36415; 80048; 81003; 81015; 82565; 83735; 83970; 84100; 84133; 87086

== ENCOUNTER 2021-11-03 03:33 | Outpatient (CLI) | payer MEDICAID, SELFPAY ==
[2021-11-03 15:28] LABS: HCG Quant, Pregnancy 1 mIU/mL (1-3)
[2021-11-03 16:08] LABS: Anion Gap 12.6 mmol/L (3-11); BUN 14 mg/dL (7-18); C-Reactive Protein 1.19 mg/dL (0.0-0.3); CO2 18.4 mmol/L (21.0-32.0); Calcium 8.6 mg/dL (8.5-10.1); Chloride 111 mmol/L (98-107); Glucose 121 mg/dL (74-106); Magnesium 2.4 mg/dL (1.8-2.4); PHOSPHORUS 2.6 mg/dL (2.6-4.7); Potassium 3.2 mmol/L (3.5-5.1); Sodium 142 mmol/L (136-145); Uric Acid 3.5 mg/dL (2.6-6.0)
[2021-11-03 17:23] LABS: Vitamin D 25 Total 30.6 ng/mL (30-100)
[2021-11-04 10:58] LABS: Parathyroid Hormone,Intact 24 pg/mL (19-88)
[2021-11-04 15:24] LABS: ANA Interpretation Positive (Negative); ANA Titer Pattern 1:160 Homogeneous
== END 2021-11-03 03:34 | disposition home or self-care (01) ==
PROVIDERS: Nurse Practitioner Family; PCP Family Medicine; Visit Provider Internal Medicine Nephrology
DX: N25.89 Other disorders resulting from impaired renal tubular function (principal); E20.9 Hypoparathyroidism, unspecified; E83.39 Other disorders of phosphorus metabolism
CPT/HCPCS: 36415; 80048; 82306; 83735; 83970; 84100; 84550; 84702; 86038; 86140

== ENCOUNTER 2021-11-11 14:21 | Outpatient (REF) | payer MEDICAID, SELFPAY ==
[2021-11-11 16:31] LABS: POTASSIUM,URINE RANDOM 29 mmol/L; PROTEIN 20.5 mg/dL (0.0-11.9); Sodium, Urine 37 mmol/L
[2021-11-11 16:36] LABS: CLEAVED CELLS 120 mmol/24h (40-220); SAMPLE LIPEMIA CHECK 3250 ml; TOTAL PROTEIN,URINE TIMED 666.3 mg/24hr (0.0-149.1); Total Volume 3250 ml
[2021-11-11 22:12] LABS: Chloride Urine 24hr 156 mmol/24hrs (110-250); Timed Urine Volume 3250 mL
[2021-11-19 09:08] LABS: Misc Referral (MAYO) See Comments
== END 2021-11-11 14:22 | disposition home or self-care (01) ==
LOC: LBN 14:21
PROVIDERS: PCP Family Medicine; Visit Provider Internal Medicine Nephrology
DX: N25.89 Other disorders resulting from impaired renal tubular function (principal)
CPT/HCPCS: 81050; 82436; 82575; 84133; 84155; 84300

== ENCOUNTER 2021-11-25 02:02 | Outpatient (CLI) | payer MEDICAID, SELFPAY ==
[2021-11-25 11:05] LABS: Anion Gap 12.2 mmol/L (3-11); BUN 16 mg/dL (7-18); CO2 16.8 mmol/L (21.0-32.0); CREATININE 1.3 mg/dL (0.55-1.02); Calcium 8.9 mg/dL (8.5-10.1); Chloride 108 mmol/L (98-107); Estimated GFR 49.13 (mL/min/1.73m2); Glucose 163 mg/dL (74-106); Magnesium 2.7 mg/dL (1.8-2.4); PHOSPHORUS 3.3 mg/dL (2.6-4.7); Sodium 137 mmol/L (136-145); Uric Acid 3.9 mg/dL (2.6-6.0)
[2021-11-25 11:15] LABS: Potassium 2.8 mmol/L (3.5-5.1)
[2021-11-25 12:27] LABS: CREATININE 1.3 mg/dL (0.55-1.02); Creatinine Clearance Urine 29 mls/min (97-137); Total Volume 3050 ml
[2021-11-26 10:49] LABS: Parathyroid Hormone,Intact 22 pg/mL (19-88)
[2021-11-26 14:55] LABS: ANA Interpretation Positive (Negative); ANA Titer Pattern 1:320 Homogeneous
[2021-11-27 05:26] LABS: Vitamin D 25 Total 38.7 ng/mL (30-100)
== END 2021-11-25 02:03 | disposition home or self-care (01) ==
LOC: LBO 02:02
PROVIDERS: Internal Medicine Nephrology; PCP Family Medicine; Visit Provider Internal Medicine Interventional Cardiology
DX: N25.89 Other disorders resulting from impaired renal tubular function (principal); E83.39 Other disorders of phosphorus metabolism; E20.9 Hypoparathyroidism, unspecified
CPT/HCPCS: 36415; 80048; 82306; 81050; 82575; 83735; 83970; 84100; 84550; 86038; 86140

== ENCOUNTER 2021-11-25 10:43 | Outpatient (REF) | payer MEDICAID, SELFPAY | END 2021-11-25 10:44 | disposition home or self-care (01) | LOC: LBN 10:43 | PROVIDERS: PCP Family Medicine; Visit Provider Internal Medicine Nephrology ==

== ENCOUNTER 2021-12-24 02:57 | Outpatient (CLI) | payer MEDICAID, SELFPAY ==
[2021-12-24 11:42] LABS: BUN 15 mg/dL (7-18); CREATININE 1.3 mg/dL (0.55-1.02); Calcium 8.6 mg/dL (8.5-10.1); Chloride 108 mmol/L (98-107); Estimated GFR 49.13 (mL/min/1.73m2); Glucose 257 mg/dL (74-106); Magnesium 2.4 mg/dL (1.8-2.4); PHOSPHORUS 2.2 mg/dL (2.6-4.7); Potassium 3.4 mmol/L (3.5-5.1); Sodium 133 mmol/L (136-145)
[2021-12-24 11:55] LABS: COMMENT (LAB VIEW ONLY) < 13.00 mg/dL
== END 2021-12-24 02:58 | disposition home or self-care (01) ==
LOC: LBO 02:57
PROVIDERS: PCP Family Medicine; Visit Provider Internal Medicine Nephrology
DX: E87.6 Hypokalemia (principal); E83.39 Other disorders of phosphorus metabolism; E87.2 Acidosis
CPT/HCPCS: 36415; 80048; 82043; 82570; 83735; 84100

== ENCOUNTER 2022-03-23 14:49 | Outpatient (CLI) | payer MEDICAID, SELFPAY ==
[2022-03-23 14:58] LABS: Potassium 2.6 mmol/L (3.5-5.1)
== END 2022-03-23 14:50 | disposition home or self-care (01) ==
LOC: LBO 14:51
PROVIDERS: PCP Family Medicine; Visit Provider Nurse Practitioner Adult Health
DX: E87.6 Hypokalemia; Z51.81 Encounter for therapeutic drug level monitoring
CPT/HCPCS: 84132

== ENCOUNTER 2022-03-24 11:38 | Outpatient (CLI) | payer MEDICAID, SELFPAY ==
[2022-03-24 14:02] LABS: Magnesium 2.1 mg/dL (1.8-2.4)
[2022-03-24 14:06] LABS: HCG Quant, Pregnancy < 1 mIU/mL (1-3); Potassium 2.8 mmol/L (3.5-5.1)
== END 2022-03-24 11:39 | disposition home or self-care (01) ==
LOC: LBO 11:39
PROVIDERS: PCP Family Medicine; Visit Provider Nurse Practitioner Adult Health
DX: E87.6 Hypokalemia (principal); N91.0 Primary amenorrhea
CPT/HCPCS: 36415; 83735; 84132; 84702

== ENCOUNTER 2022-03-30 03:06 | Outpatient (CLI) | payer MEDICAID, SELFPAY ==
[2022-03-30 12:19] LABS: Anion Gap 15.8 mmol/L (3-11); BUN 21 mg/dL (7-18); CO2 13.2 mmol/L (21.0-32.0); CREATININE 1.1 mg/dL (0.55-1.02); Calcium 9.1 mg/dL (8.5-10.1); Chloride 108 mmol/L (98-107); Estimated GFR 70.63 (mL/min/1.73m2); Glucose 179 mg/dL (74-106); Magnesium 2.2 mg/dL (1.8-2.4); Sodium 137 mmol/L (136-145)
[2022-03-30 12:26] LABS: Potassium 2.8 mmol/L (3.5-5.1)
== END 2022-03-30 03:07 | disposition home or self-care (01) ==
LOC: LBO 03:06
PROVIDERS: PCP Family Medicine; Visit Provider Internal Medicine Nephrology
DX: E87.6 Hypokalemia (principal)
CPT/HCPCS: 36415; 80048; 83735

== ENCOUNTER 2022-06-02 02:45 | Outpatient (CLI) | payer MEDICAID, SELFPAY ==
[2022-06-02 11:52] LABS: COMMENT (LAB VIEW ONLY) 18.79 mg/dL
[2022-06-02 11:56] LABS: Anion Gap 13.5 mmol/L (3-11); BUN 19 mg/dL (7-18); CO2 17.5 mmol/L (21.0-32.0); CREATININE 1.3 mg/dL (0.55-1.02); Chloride 104 mmol/L (98-107); Glucose 183 mg/dL (74-106); Magnesium 2.8 mg/dL (1.8-2.4); PHOSPHORUS 3.1 mg/dL (2.6-4.7); Sodium 135 mmol/L (136-145); Uric Acid 3.7 mg/dL (2.6-6.0)
[2022-06-02 12:14] LABS: Potassium 2.8 mmol/L (3.5-5.1)
[2022-06-02 12:14] LABS: Microalb ug/mg Crea 255.5 ug/mg Cr
== END 2022-06-02 02:46 | disposition home or self-care (01) ==
PROVIDERS: PCP Family Medicine; Visit Provider Internal Medicine Nephrology
DX: E87.6 Hypokalemia (principal); E83.39 Other disorders of phosphorus metabolism; E87.29 Other acidosis; N25.89 Other disorders resulting from impaired renal tubular function; N92.6 Irregular menstruation, unspecified
CPT/HCPCS: 36415; 80048; 82043; 82570; 83735; 84100; 84443; 84550

== ENCOUNTER → 2022-06-02 12:13 | Outpatient (CLI) | payer MEDICAID, SELFPAY ==
--- NOTE | 2022-06-02 11:45 | DI.RAD_ITS ---
Exam(s) XR CHEST 2V PA LATERAL EXAM: XR CHEST 2V PA LATERAL CLINICAL HISTORY: Cough, dyspnea, bronchitis, J40 TECHNIQUE: 2D digital imaging was performed of the chest. Two images were obtained. PA and lateral views were obtained. COMPARISON: No exams were available for comparison FINDINGS: MEDIASTINUM: Normal. HEART: Normal. PULMONARY VASCULATURE: Normal. LUNGS: Clear. PLEURAL SPACE: No pleural effusion or pneumothorax. BONE:Within normal limits for the patient's age. OTHER FINDINGS:Normal. IMPRESSION: No acute pulmonary findings. DATA REPOSITORY: RADIATION DOSE DELIVERED:
== END ==
PROVIDERS: PCP Family Medicine; Visit Provider Family Medicine
DX: J40 Bronchitis, not specified as acute or chronic (principal); R05.9 Cough, unspecified; R06.02 Shortness of breath
CPT/HCPCS: 71046

== ENCOUNTER 2022-06-16 10:27 | Emergency (ER) | payer MEDICAID, SELFPAY ==
[2022-06-16] VITALS (22 sets, daily range): BP systolic 102–123; BP diastolic 58–77; PULSE 72–103; RESP 13–21; TEMP 36.6–37.2; O2SAT 97–100
--- NOTE | 2022-06-16 10:30 | RT.EKG_ITS ---
APPROVED REPORT Exam: Resting ECG Reason for Exam: chest pain Patient Location: E HR:102 bpm ECG Measurements Heart Rate 102 AXIS WV 163 P 90 QRSd 84 QRS 69 QT 331 T 19 QTc 432 Conclusion Sinus tachycardia...rate> 99
[2022-06-16 10:51] LABS: Abs Immature Grans 0.12 10^3/uL (0.0-0.06); Absolute Basophil Count 0.07 10^3/uL (0.0-0.2); Absolute Eosinophil Count 0.11 10^3/uL (0.0-0.7); Absolute Lymphocyte Count 2.06 10^3/uL (1.2-3.4); Absolute Monocyte Count 1.31 10^3/uL (0.1-0.8); Basophils % 0.5; Eosinophils % 0.8; HCT 48.2 % (36.0-46.0); HGB 15.7 g/dL (11.2-15.7); Immature Grans % 0.9; Lymphocytes % 15.3; MCH 26.8 pg (27.0-33.0); MCHC 32.6 % (32.0-36.0); MCV 82 fL (80-95); MPV 9.4 fL (8.0-11.0); Monocytes % 9.7; Neutrophils % 72.8; Platelet Count 353 10^3/uL (130-400); RBC 5.85 10^6/uL (3.93-5.22); RDW 16.7 % (11.7-14.6); RDW-SD 47.8 fL; WBC 13.47 10^3/uL (4.4-10.8)
[2022-06-16 10:52] LABS: Absolute Neutrophil Count 9.81 10^3/uL (1.2-6.7)
--- NOTE | 2022-06-16 11:09 | ED.GENADUL_ITS ---
Discharge Plan Disposition Patient Disposition: Home Condition: Improving Discharge Details Clinical Impression: Hypokalemia Primary Care Provider: Myron Worrell ED Provider: Noni Bui Home Meds and New Rx's Prescriptions: New potassium chloride [Klor-Con] 20 mEq packet 20 meq PO TID Qty: 30 0RF Rx Instructions: Take one packet mixed with 8 oz liquid three times daily Continued omeprazole 20 mg capsule,delayed release(DR/EC) 20 mg PO DAILY PRN (Reason: reflux) Qty: 90 3RF (DME) FreeStyle Iraida 2 Sensor Kit See Rx Instructions .ROUTE .MEDSUPPLY Qty: 2 11RF Rx Instructions: As directed, E11.65, on multiple daily doses of insulin, A1C goal less than 6.5% amiloride 5 mg tablet 10 mg PO HS Label Comments: 03/31/22- pt reports [facility] instructed her to start taking this at bedtime. Rx Instructions: with KCL reduction by 50% per [facility] note dated 12/08/21. cc 04/08/22 [facility] Held potassium chloride 20 mEq tablet extended release 20 meq PO TID Hold Instructions: Resume on 06/26/22. While taking liquid Potassium, resume after discussion with PCP Label Comments: 03/31/22. rx previously rx'd by Dr. Worrell, but [facility] managing. Per pt, [facility] has increased her dose to 2 tab/cap in the am, 2 tab/cap in the afternoon and 2 tab/caps at bedtime. No Action acetaminophen [Tylenol Extra Strength] 500 mg tablet 1,000 mg PO Q6H PRN Label Comments: taking 2-3 tabs as needed (DME) pen needle, diabetic [Pen Needle] 31 gauge x 5/16 needle See Rx Instructions .ROUTE .MEDSUPPLY Qty: 100 6RF Rx Instructions: As directed to administer insulin 5x daily. Dispense covered brand. (DME) lancets [OneTouch Delica Lancets] 33 gauge misc See Rx Instructions .ROUTE .MEDSUPPLY Qty: 150 4RF Rx Instructions: As directed Discharge Instructions Instructions: Hypokalemia (ED) Additional Instructions: Please substitute the liquid potassium for the tablets until follow-up with your PCP or [facility]. Please alternate water and coconut water and/or Gatorade. Please have your potassium rechecked within the next 1 to 2 weeks. Follow up with primary care provider in 7-10 days. Return to ED sooner if any worsening weakness, muscle spasms, palpitations or concerns. Increase oral fluids. Referrals: Myron Worrell DO [Primary Care Provider] - 2 weeks Medical Decision Making 26-year-old female with past medical history of chronic hypokalemia presents to the ER with chief complaint of weakness, increased palpitations after having flulike symptoms over the last couple weeks. She does take daily potassium she reports she takes potassium 3 times daily. She reports that she has been unable to tolerate the potassium since due to nausea and stomach upset. She did take 2 tablets of 20 mill equivalents prior to arrival. She denies any diarrhea. CBC, CMP, troponin, IV and EKG obtained by staff therapist in triage. EKG was reviewed by Dr. Malcom Shaffer ER attending, old EKG available for review please see his official report. Normal saline liter at 250 an hour ordered I did offer Zofran which patient declined at this time. Potassium received from lab which is 2.9 , chloride 111, anion gap 14.4, creatinine 1.3 GFR 57, glucose 132 magnesium 2.5, alk phos 226 troponin less than 50. Potassium IV ordered, Zofran 4 mg IV, normal saline at 250 an hour titrate to patient comfort, and p.o. 20 mEq of potassium oral liquid. Will recheck potassium at approximately 1300. Repeat potassium 3.3 labs are largely improved. I did discuss at length home care with patient and family who verbalized understanding. I did give patient oral potassium 20 mill equivalents 3 times daily prescription and instructed her to substitute this. Instructed to drink coconut water and Gatorade alternatively with water. Mom reports that she has been drinking approximately 10 water bottles a day straight water. This could contribute to her low potassium. Patient remained hemodynamically stable alert and oriented and felt much better prior to discharge. This text was generated using [employer] system, please disregard any oddities of phrase or misspellings. Medical Records Medical records reviewed: Yes I reviewed the patient's medical records. Medical records narrative: Patient seen by her PCP on 06/02, her potassium was 2.8 at that time, HPI General Mode of arrival: ambulatory . Date/Time Provider Initiated Documentation: 06/16/22 10:38 . Limitations to Documentation: no limitations . Information obtained by: patient, RN notes reviewed and old records reviewed . HPI Narrative: 26-year-old female with past medical history of chronic hypokalemia presents to the ER with chief complaint of weakness, increased palpitations after having flulike symptoms over the last couple weeks. She does take daily potassium she reports she takes potassium 3 times daily. She reports that she has been unable to tolerate the potassium since due to nausea and stomach upset. She did take 2 tablets of 20 mill equivalents prior to arrival. She denies any diarrhea. Denies fever. Reports significant muscle spasms. Other past medical history includes GERD, migraine, distal renal tubular acidosis. Related Data Home Medications Medication Instructions Recorded Confirmed acetaminophen 500 mg tablet 1,000 mg PO Q6H PRN 12/12/20 06/16/22 (Tylenol Extra Strength) lancets 33 gauge (OneTouch Delica #150 ea 12/16/20 11/11/21 Lancets) omeprazole 20 mg capsule,delayed 20 mg PO DAILY PRN reflux #90 caps 07/15/21 06/16/22 release flash glucose sensor (FreeStyle #2 ea 08/15/21 11/11/21 Iraida 2 Sensor kit) pen needle, diabetic 31 gauge x #100 ea 10/14/21 11/11/21 5/16 (Pen Needle) potassium chloride 20 mEq 20 meq PO TID 03/31/22 06/16/22 tablet,extended release amiloride 5 mg tablet 10 mg PO HS 04/13/22 06/16/22 potassium chloride 20 mEq oral 20 meq PO TID hypokalemia #30 ea 06/16/22 packet (Klor-Con) Previous Rx's Medication Instructions Recorded lancets 33 gauge (OneTouch Delica #150 ea 12/16/20 Lancets) omeprazole 20 mg capsule,delayed 20 mg PO DAILY PRN reflux #90 caps 07/15/21 release flash glucose sensor (FreeStyle #2 ea 08/15/21 Iraida 2 Sensor kit) pen needle, diabetic 31 gauge x #100 ea 10/14/21 5/16 (Pen Needle) potassium chloride 20 mEq oral 20 meq PO TID hypokalemia #30 ea 06/16/22 packet (Klor-Con) Allergies Allergy/AdvReac Type Severity Reaction Status Date / Time No Known Allergies Allergy Verified 06/16/22 10:33 General Stated Complaint: GenMedical BHASKAR: 2 Review of Systems All systems reviewed & are unremarkable except as noted in HPI and below Constitutional Constitutional: Reports as per HPI, Reports fatigue, Reports lethargy and Reports malaise Cardiovascular Cardiovascular: Denies chest pain, Denies lightheadedness, Reports palpitations and Denies dyspnea Respiratory Respiratory: Reports as per HPI and Denies dyspnea Gastrointestinal Gastrointestinal: Denies diarrhea, Denies nausea and Denies vomiting Musculoskeletal Musculoskeletal: Reports muscle cramps, Denies numbness, Reports stiffness and Denies tingling Neurologic Neurologic: Denies numbness, Denies convulsions, Denies tingling and Denies tremor(s) Endocrine Endocrine: Reports fatigue and Reports palpitations PFSH All Active Problems (Updated 06/16/22 @ 13:09 by Noni Bui NP) Hypokalemia (Acute) Acute hypokalemia (Acute) Patient desires (Acute ~03/2022) Amenorrhea (Acute) Other specified diabetes mellitus with hyperglycemia (Acute) 09/12/21 [facility] [facility] Endocrinology GERD (gastroesophageal reflux disease) (Chronic) Migraine with aura (Acute) Hypokalemia due to loss of potassium (Acute) Distal renal tubular acidosis (Chronic) Medical History (Updated 06/16/22 @ 13:09 by Noni Bui NP) Cellulitis of neck Diabetes mellitus Type 2 Hx of ectopic Neck abscess Psoriasis Surgical History (Updated 11/11/21 @ 11:30 by Yuko Hatfield MD) H/O laparoscopy 2019 ectopic , failed MTX Previous section 11/01/19 for breech Family History Father Well adult Mother Well adult Social History Smoking/Tobacco Use Status: Former Tobacco Use Smoking risk assessment performed?: Yes Alcohol Intake: never Drug use: Never Substance use type: does not use Adopted: No Caregiver/Support person: No Foster care: No Household members: spouse and children Housing: house Number of Children: 1 Communication Needs: None Education Level: high school Do you need help understanding health information?: Often Pets and animals: Yes Pets and animals: dog(s) Sexually active: Yes Do you think of yourself as: straight/heterosexual Current gender identity: female What is your relationship status?: living with partner How often do you talk on the phone with friends or family?: three or more times per week How often do you get together with friends or relatives?: once per week Do you belong to any clubs or organized social groups?: no Panel score (0-1 are the most socially isolated patients): 2 Raquel/Sikhism: Adventist Seatbelt use: sometimes Do you feel safe at home: Yes Do you feel safe in your relationship?: Yes History History 4 Para 1 Hx # Term Pregnancies 1 Multiple births Hx # Pregnancies Ectopic pregnancies 1 AB induced Hx Number of Living Children 1 AB spontaneous 2 Past Pregnancies Del. Date GA/Weeks # Preg Succ Route Wgt Sex Labor Lgth Anesth esia Location Prov Complic 06/21/18 11/01/19 Male Delivery Date: 06/21/18 Last Updated by: Yuko Hatfield MD Ectopic . Laparoscopy s/p failed MTX. Exact date unknown - sometime early 2018 Delivery Date: 11/01/19 Last Updated by: Yuko Hatfield MD Breech presentation Exam Narrative Exam Narrative: Constitutional: Alert and oriented x3. Appears stated age. Normal body habitus. Head: Normocephalic, no trauma. Eyes: Pupils PERRL, Red reflex noted, EOM's intact. Eyelids symmetrical without lesions, discharge, or swelling. ENT: Bilateral TM's WNL, External ear normal to inspection, no mastoid TTP, swelling, or erythema, Nasal turbinates WNL, no nasal discharge. Normal dentition, Posterior pharynx WNL, no exudate. Chest: RRR, Normal S1, S2, distal pulses intact. Resp: Lungs clear to auscultation bilaterally, no wheezes, rales, or rhonchi. Abdomen: Soft, non-distended, Normoactive bowel sounds all 4 quads. Musculoskeletal: Normal gait, 5/5 strength to all four extremities. Skin: No suspicious rashes or lesions. Capillary refill less than 2 sec. Neurologic: Cranial nerves II-XII intact. Alert and oriented x 3. Motor: No deficits noted. Sensory: Intact bilaterally all 4 extremities. Reflexes: DTR's intact bilaterally. Hematologic/Lymphatic: No ecchymosis, no lymphadenopathy. Course Vital Signs Vital signs: Vital Signs Temperature 37.2 C 06/16/22 10:29 Pulse 103 H 06/16/22 10:29 Respiratory Rate 18 06/16/22 10:29 Blood Pressure 118/77 06/16/22 10:29 Pulse Oximetry 99 06/16/22 10:29 Temperature 37.2 C 06/16/22 10:29 Temperature Source Temporal Artery Scan 06/16/22 10:29 Pulse 103 H 06/16/22 10:29 Respiratory Rate 18 06/16/22 10:29 Respiratory Effort Non-Labored 06/16/22 10:34 Blood Pressure 118/77 06/16/22 10:29 Blood Pressure Position Sitting 06/16/22 10:29 Pulse Oximetry 99 06/16/22 10:29 Oxygen Delivery Method Room Air 06/16/22 10:29 Oxygen Flow Rate 0 06/16/22 10:29 Pain Level 8 06/16/22 10:29 Lab/Test Results Lab/Test Results: Laboratory Tests Range/Units 06/16/22 10:46 WBC (4.4-10.8) 10^3/uL 13.47 H RBC (3.93-5.22) 10^6/uL 5.85 H Hgb (11.2-15.7) g/dL 15.7 Hct (36.0-46.0) % 48.2 H MCV (80-95) fL 82 MCH (27.0-33.0) pg 26.8 L MCHC (32.0-36.0) % 32.6 RDW (11.7-14.6) % 16.7 H Plt Count (130-400) 10^3/uL 353 MPV (8.0-11.0) fL 9.4 Immature Gran % 0.9 Neutrophils % 72.8 Lymphocytes % 15.3 Monocytes % 9.7 Eosinophils % 0.8 Basophils % 0.5 Nucleated RBC % (0.0-0.3) % 0.0 Absolute Neutrophils (1.2-6.7) 10^3/uL 9.81 H Absolute Lymphocytes (1.2-3.4) 10^3/uL 2.06 Absolute Monocytes (0.1-0.8) 10^3/uL 1.31 H Absolute Eosinophils (0.0-0.7) 10^3/uL 0.11 Absolute Basophils (0.0-0.2) 10^3/uL 0.07 PAWSS Have you Been Recently Intoxicated or Drunk Within the Last 30 days?: No Have you Ever Experienced Previous Episodes of Alcohol Withdrawal?: No Have you ever Experienced Withdrawal Seizures?: No Have you ever Experienced Delirium Tremens(DT)s?: No Have you ever undergone Alcohol Rehabilitation Treatment (i.e, inpt ot outpatient treatment programs)?: No Have you ever Experienced Blackouts?: No Have you ever Combined Alcohol with other Downers within the last 90 days?: No Have you ever Combined Alcohol with any other Substance of Abuse during the last 90 days?: No Positive Blood Alcohol level on Presentation? [PCS.BAL]: No Evidence of Increased Autonomic Activity (i.e. HR>120, tremor, sweating, agitation, nausea)?: No Result: 0
[2022-06-16 11:17] LABS: ALT 41 U/L (14-59); AST 22 U/L (15-37); Albumin 4.1 g/dL (3.4-5.0); Alkaline Phosphatase 226 U/L (46-116); Anion Gap 14.4 mmol/L (3-11); BUN 14 mg/dL (7-18); Bilirubin, Total 0.4 mg/dL (0.2-1.0); CO2 12.6 mmol/L (21.0-32.0); CREATININE 1.3 mg/dL (0.55-1.02); Calcium 8.9 mg/dL (8.5-10.1); Chloride 111 mmol/L (98-107); Glucose 132 mg/dL (74-106); Magnesium 2.5 mg/dL (1.8-2.4); Sodium 138 mmol/L (136-145); Total Protein 8.3 g/dL (6.4-8.2); Troponin I < 50 ng/L (<or=60)
[2022-06-16 11:18] LABS: Potassium 2.9 mmol/L (3.5-5.1)
[2022-06-16] MEDS: Ondansetron 4 MG/2 ML VIAL IVP (11:28)
[2022-06-16] MEDS: Normal Saline 1,000 ML 250 ML IV (11:28)
[2022-06-16] MEDS: POTASSIUM CHLORIDE 10 MEQ/100 ML BAG 100 MEQ IVPB (11:28)
[2022-06-16] MEDS: Potassium Chloride Liquid 20 MEQ PKT PO (12:18)
[2022-06-16 12:56] LABS: Anion Gap 12.2 mmol/L (3-11); BUN 15 mg/dL (7-18); CO2 13.8 mmol/L (21.0-32.0); CREATININE 1.1 mg/dL (0.55-1.02); Calcium 8.2 mg/dL (8.5-10.1); Chloride 113 mmol/L (98-107); Estimated GFR 70.63 (mL/min/1.73m2); Glucose 129 mg/dL (74-106); Potassium 3.3 mmol/L (3.5-5.1); Sodium 139 mmol/L (136-145)
[2022-06-16] MEDS: Ondansetron O.D.T. 4 MG TABEF, 3 TABS/BTL PO (13:24)
== END 2022-06-16 13:28 | disposition home or self-care (01) ==
PROVIDERS: Emergency Provider Registered Nurse Emergency; PCP Family Medicine
DX: E87.6 Hypokalemia (principal); R07.9 Chest pain, unspecified
CPT/HCPCS: 36415; 80048; 80053; 93005; 96361; 96365; 96366; 96375; 99284; 83735; 84484; 85025; 93010; J2405; J3480

== ENCOUNTER 2022-12-28 14:55 | Outpatient (CLI) | payer MEDICAID, SELFPAY ==
[2022-12-28 12:45] LABS: Abs Immature Grans 0.17 10^3/uL (0.0-0.06); Absolute Monocyte Count 0.85 10^3/uL (0.1-0.8); Absolute Neutrophil Count 9.61 10^3/uL (1.2-6.7); Basophils % 0.4; HCT 48.4 % (36.0-46.0); HGB 15.7 g/dL (11.2-15.7); Immature Grans % 1.3; Lymphocytes % 20.1; MCH 27.3 pg (27.0-33.0); MCHC 32.4 % (32.0-36.0); MCV 84 fL (80-95); MPV 9.9 fL (8.0-11.0); Monocytes % 6.3; Neutrophils % 70.9; Platelet Count 288 10^3/uL (130-400); RBC 5.75 10^6/uL (3.93-5.22); RDW 14.4 % (11.7-14.6); RDW-SD 43.9 fL; WBC 13.55 10^3/uL (4.4-10.8)
[2022-12-28 12:51] LABS: Absolute Basophil Count 0.05 10^3/uL (0.0-0.2); Absolute Eosinophil Count 0.14 10^3/uL (0.0-0.7); Absolute Lymphocyte Count 2.72 10^3/uL (1.2-3.4)
[2022-12-28 13:31] LABS: Hemoglobin A1C 6.6 % (<5.7)
[2022-12-28 13:36] LABS: ALT 42 U/L (14-59); AST 25 U/L (15-37); Albumin 4.1 g/dL (3.4-5.0); Alkaline Phosphatase 117 U/L (46-116); Anion Gap 11.3 mmol/L (3-11); BUN 17 mg/dL (7-18); Bilirubin, Total 0.4 mg/dL (0.2-1.0); CO2 17.7 mmol/L (21.0-32.0); CREATININE 1.2 mg/dL (0.55-1.02); Calcium 9.1 mg/dL (8.5-10.1); Chloride 108 mmol/L (98-107); Estimated GFR 63.23 (mL/min/1.73m2); Glucose 109 mg/dL (74-106); Magnesium 2.5 mg/dL (1.8-2.4); Sodium 137 mmol/L (136-145); TSH 3.75 uIU/mL (0.36-3.74); Total Protein 8.3 g/dL (6.4-8.2); Uric Acid 4.4 mg/dL (2.6-6.0)
[2022-12-28 13:39] LABS: HCG Quant, Pregnancy 1484 mIU/mL (1-3)
[2022-12-30 10:02] LABS: C3 Complement 161 mg/dL (81-157); C4 Complement 23 mg/dL (13-39)
[2023-01-01 15:22] LABS: RNP Ab, IgG 15.4 Units (<20.0); SS-A Antibody 1.3 Units (<20.0); SS-B (La) Ab, IgG 1.6 Units (<20.0); Sm (Smith) Ab, IgG 2.3 Units (<20.0)
== END 2022-12-28 14:56 | disposition home or self-care (01) ==
LOC: LBO 14:55
PROVIDERS: Advanced Practice Midwife; PCP Family Medicine; Visit Provider Internal Medicine Nephrology
DX: E87.6 Hypokalemia (principal); N25.89 Other disorders resulting from impaired renal tubular function; K59.00 Constipation, unspecified; N17.9 Acute kidney failure, unspecified; E11.9 Type 2 diabetes mellitus without complications; R76.8 Other specified abnormal immunological findings in serum
CPT/HCPCS: 36415; 80053; 82784; 82787; 83036; 83735; 84100; 84443; 84550; 84702; 85025; 86160; 86235

== ENCOUNTER 2023-01-08 14:52 | Outpatient (CLI) | payer MEDICAID, SELFPAY ==
--- NOTE | 2023-01-08 13:45 | DI.US_ITS ---
Exam(s) US OB 1ST TRIMESTER EXAM: US OB 1ST TRIMESTER CLINICAL HISTORY: early location,? ectopic,O26.851. COMPARISON: US US PELVIS from 02/14/2021 TECHNIQUE: Transabdominal Transvaginal first trimester obstetrical ultrasound performed. FINDINGS: Sonographic images demonstrate a single intrauterine gestation. A yolk sac and pole are seen. Sonographically assessed gestational age based upon crown-rump length of 6 millimeter is: 6+ 2 weeks Estimated date of delivery based on this ultrasound is: 01 September 2023 Estimated date of delivery based upon LMP: 29 August 2023 heart rate motion is visible but M wave was not able to be registered. No free fluid identified. Both ovaries appear sonographically normal. No evidence of ectopic . Pelvic Measurments Uterus: 6.1 x 4.3 x 5.6 cm Rt Ovary: 3.8 x 2.7 x 3.2 cm Lt Ovary: 2.9 x 2 x 3.6 cm IMPRESSION: Single live intrauterine gestation measuring 6 weeks 2 days. No evidence of ectopic . DATA REPOSITORY:
== END 2023-01-08 15:12 ==
LOC: DI 14:52
PROVIDERS: PCP Family Medicine; Visit Provider Obstetrics & Gynecology
DX: O26.851 Spotting complicating pregnancy, first trimester (principal); Z87.59 Personal history of other complications of pregnancy, childbirth and the puerperium
CPT/HCPCS: 76801

== ENCOUNTER 2023-01-08 14:54 | Outpatient (CLI) | payer MEDICAID, SELFPAY ==
[2023-01-08 14:06] LABS: HCG Quant, Pregnancy 2251 mIU/mL (1-3)
== END 2023-01-08 14:55 | disposition home or self-care (01) ==
LOC: LBO 14:54
PROVIDERS: PCP Family Medicine; Visit Provider Obstetrics & Gynecology
DX: O26.851 Spotting complicating pregnancy, first trimester (principal); Z3A.01 Less than 8 weeks gestation of pregnancy
CPT/HCPCS: 36415; 84702

== ENCOUNTER 2023-01-11 04:55 | Outpatient (CLI) | payer MEDICAID, SELFPAY ==
[2023-01-11 11:22] LABS: HCG Quant, Pregnancy 2878 mIU/mL (1-3)
== END 2023-01-11 04:56 | disposition home or self-care (01) ==
LOC: LBO 04:55
PROVIDERS: PCP Family Medicine; Visit Provider Obstetrics & Gynecology
DX: O26.851 Spotting complicating pregnancy, first trimester (principal); Z3A.01 Less than 8 weeks gestation of pregnancy
CPT/HCPCS: 36415; 84702

== ENCOUNTER 2023-01-16 16:25 | Emergency (ER) | payer MEDICAID, SELFPAY ==
[2023-01-16 16:37] VITALS: BP 125/79; PULSE 77; RESP 16; TEMP 37.1; O2SAT 100
--- NOTE | 2023-01-16 17:03 | ED.GENADUL_ITS ---
Discharge Plan Disposition Patient Disposition: Other Disposition Not Listed Other Facility: Discharged and taken to center for outpatient ultrasound Discharge Details Chief Complaint: DIRECTOR DESIGN Clinical Impression: Miscarriage, threatened, early Primary Care Provider: Myron Worrell ED Provider: Rosita Young Home Meds and New Rx's Prescriptions: No Action acetaminophen [Tylenol Extra Strength] 500 mg tablet 1,000 mg PO Q6H PRN Patient Comments: states not taking potassium chloride [Klor-Con] 20 mEq packet 40 meq PO TID Qty: 30 0RF Rx Instructions: Take one packet mixed with 8 oz liquid three times daily sodium bicarbonate 650 mg tablet 650 mg PO TID Patient Comments: 12/28/22- per pt report ferrous sulfate [Feosol] 325 mg (65 mg iron) tablet 325 mg PO DAILY Qty: 90 3RF amiloride 5 mg tablet 10 mg PO HS Patient Comments: 03/31/22- pt reports [facility] instructed her to start taking this at bedtime. Rx Instructions: with KCL reduction by 50% per [facility] note dated 12/08/21. cc 04/08/22 [facility] omeprazole 20 mg capsule,delayed release(DR/EC) 20 mg PO DAILY PRN (Reason: reflux) Qty: 90 3RF Patient Comments: sttates not taking (DME) FreeStyle Iraida 2 Sensor Kit See Rx Instructions .ROUTE .MEDSUPPLY Qty: 2 11RF Rx Instructions: As directed, E11.65, on multiple daily doses of insulin, A1C goal less than 6.5% Medical Decision Making 27yo F presenting at approximately 8 weeks gestation (LMP 11/21/22) with vaginal bleeding. Follows with [facility] DIRECTOR DESIGN. Has had vaginal bleeding/spotting for the past week and a half; had an ultrasound earlier this week which per patient showed a viable IUP, she has repeat ultrasound scheduled for Wednesday. Today she noted heavier bleeding and passage of small clots, some with thick material. Some lower abodminal cramping. No lightheadness or syncope. She is otherwise in her usual state of health with no fevers, chills, rash, nausea, vomiting, dysuria, chest pain, shortness of breath, or other concerns. Medical Records Medical records narrative: 27yo F LMP 11/21/22 presenting aproximately 8 weeks gestation with confirmed IUP per patient with increasing vaginal bleeding and mild lower abdominal cramping. Vital signs and physical exam reassuring, hemodynamically stable, not ectopic on recent ultrasound. CBC, CMP, beta hcg quant, and blood type (may need Rhogam) ordered. Warrants transvaginal ultrasound to assess prognosis of , unfortunately not available over the weekend. Discussed with OB lubrication worker Dr. Rogers who is in-house; plan for patient to be discharged directly to center for ultrasound now. Labs pending at time of signout, OB will followup. Taken directly to center. HPI General Mode of arrival: ambulatory . Date/Time Provider Initiated Documentation: 01/16/23 16:43 . Limitations to Documentation: no limitations . Information obtained by: patient . HPI Narrative: 27yo F presenting at approximately 8 weeks gestation (LMP 11/21/22) with vaginal bleeding. Follows with [facility] DIRECTOR DESIGN. Has had vaginal bleeding/spotting for the past week and a half; had an ultrasound earlier this week which per patient showed a viable IUP, she has repeat ultrasound scheduled for Wednesday. Today she noted heavier bleeding and passage of small clots, some with thick material. Some lower abodminal cramping. No lightheadness or syncope. She is otherwise in her usual state of health with no fevers, chills, rash, nausea, vomiting, dysuria, chest pain, shortness of breath, or other concerns. Related Data Home Medications Medication Instructions Recorded Confirmed acetaminophen 500 mg tablet 1,000 mg PO Q6H PRN 12/12/20 01/08/23 (Tylenol Extra Strength) amiloride 5 mg tablet 10 mg PO HS 04/13/22 01/16/23 potassium chloride 20 mEq oral 40 meq PO TID hypokalemia #30 ea 07/06/22 01/16/23 packet (Klor-Con) omeprazole 20 mg capsule,delayed 20 mg PO DAILY PRN reflux #90 caps 08/07/22 01/08/23 release flash glucose sensor (FreeStyle #2 ea 10/02/22 01/08/23 Iraida 2 Sensor kit) ferrous sulfate 325 mg (65 mg 325 mg PO DAILY #90 tabs 12/28/22 01/16/23 iron) tablet (Feosol) sodium bicarbonate 650 mg tablet 650 mg PO TID 12/28/22 01/16/23 Previous Rx's Medication Instructions Recorded potassium chloride 20 mEq oral 40 meq PO TID hypokalemia #30 ea 07/06/22 packet (Klor-Con) omeprazole 20 mg capsule,delayed 20 mg PO DAILY PRN reflux #90 caps 08/07/22 release flash glucose sensor (FreeStyle #2 ea 10/02/22 Iraida 2 Sensor kit) ferrous sulfate 325 mg (65 mg 325 mg PO DAILY #90 tabs 12/28/22 iron) tablet (Feosol) Allergies Allergy/AdvReac Type Severity Reaction Status Date / Time No Known Allergies Allergy Verified 01/16/23 16:47 General Stated Complaint: DIRECTOR DESIGN BHASKAR: 3 Review of Systems Narrative: see HPI PFSH All Active Problems (Updated 01/16/23 @ 19:28 by Rosita Young MD) Miscarriage, threatened, early (Acute) Rh negative state in antepartum period (Acute) Distal renal tubular acidosis (Chronic) Hypokalemia due to loss of potassium (Acute) Amenorrhea (Acute) Migraine with aura (Acute) GERD (gastroesophageal reflux disease) (Chronic) Other specified diabetes mellitus with hyperglycemia (Acute) 09/12/21 [facility] [place]ocrinology Patient desires (Acute ~03/2022) Acute hypokalemia (Acute) DB positive (Acute) Blunt chest trauma (Acute) Acidosis, renal tubular (Acute) Constipation, unspecified (Acute) (Acute) Spotting affecting in first trimester (Acute) Medical History (Updated 01/16/23 @ 19:28 by Rosita Young MD) Cellulitis of neck Diabetes mellitus Type 2 Hx of ectopic Neck abscess Psoriasis Surgical History (Updated 11/11/21 @ 11:30 by Yuko Hatfield MD) H/O laparoscopy 2019 ectopic , failed MTX Previous section 11/01/19 for breech Family History (Updated 12/28/22 @ 12:02 by Marie Norwood CNM) Father Well adult Mother Well adult Maternal Grandmother Thyroid disease Social History Smoking/Tobacco Use Status: Former Tobacco Use Smoking risk assessment performed?: Yes Alcohol Intake: never Drug use: Never Substance use type: does not use Adopted: No Caregiver/Support person: No Foster care: No Household members: spouse and children Housing: house Number of Children: 1 Communication Needs: None Education Level: high school Do you need help understanding health information?: Often Pets and animals: Yes Pets and animals: dog(s) Sexually active: Yes Do you think of yourself as: straight/heterosexual Current gender identity: female What is your relationship status?: living with partner How often do you talk on the phone with friends or family?: three or more times per week How often do you get together with friends or relatives?: once per week Do you belong to any clubs or organized social groups?: no Panel score (0-1 are the most socially isolated patients): 2 Raquel/Muslim: Spiritism Seatbelt use: sometimes Do you feel safe at home: Yes Do you feel safe in your relationship?: Yes History History 3 Para Hx # Term Pregnancies 1 Multiple births Hx # Pregnancies Ectopic pregnancies 1 AB induced Hx Number of Living Children 1 AB spontaneous Past Pregnancies Del. Date GA/Weeks # Preg Succ Route Wgt Sex Labor Lgth Anesth esia Location Prov Complic 06/21/18 11/01/19 Male Delivery Date: 06/21/18 Last Updated by: Yuko Hatfield MD Ectopic . Laparoscopy s/p failed MTX. Exact date unknown - sometime early 2018 Delivery Date: 11/01/19 Last Updated by: Mraie Norwood CNM Breech presentation, Vanishing twin, gestational diabetes. Exam Narrative Exam Narrative: General: Alert, well appearing, well nourished, tearful. Head: Normocephalic, atraumatic Neck: Trachea midline, Neck supple. ENT: MMM. No oropharygeal lesions or exudate. Cardiac: RRR, no murmurs appreciated Resp: No respiratory distress. CTAB. Abd: Soft, non-distended, nontender Pelvic: Deferred Extremities: No deformities. No peripheral edema. Neurologic: GCS 15. Moves all extremities freely against gravity Course Vital Signs Vital signs: Vital Signs Temperature 37.1 C 01/16/23 16:37 Pulse 77 01/16/23 16:37 Respiratory Rate 16 01/16/23 16:37 Blood Pressure 125/79 01/16/23 16:37 Pulse Oximetry 100 01/16/23 16:37 Temperature 37.1 C 01/16/23 16:37 Temperature Source Skin 01/16/23 16:37 Pulse 77 01/16/23 16:37 Respiratory Rate 16 01/16/23 16:37 Respiratory Effort Normal 01/16/23 16:45 Blood Pressure 125/79 01/16/23 16:37 Pulse Oximetry 100 01/16/23 16:37 Oxygen Delivery Method Room Air 01/16/23 16:37 Oxygen Flow Rate 0 01/16/23 16:37 Pain Level 3 01/16/23 16:37
[2023-01-16 17:22] LABS: Abs Immature Grans 0.06 10^3/uL (0.0-0.06); Absolute Basophil Count 0.06 10^3/uL (0.0-0.2); Absolute Eosinophil Count 0.13 10^3/uL (0.0-0.7); Absolute Lymphocyte Count 2.47 10^3/uL (1.2-3.4); Absolute Monocyte Count 0.79 10^3/uL (0.1-0.8); Basophils % 0.5; Eosinophils % 1.1; HCT 43.3 % (36.0-46.0); HGB 14.2 g/dL (11.2-15.7); Immature Grans % 0.5; Lymphocytes % 21.7; MCH 27.4 pg (27.0-33.0); MCHC 32.8 % (32.0-36.0); MCV 83 fL (80-95); MPV 9.8 fL (8.0-11.0); Monocytes % 6.9; Neutrophils % 69.3; Platelet Count 264 10^3/uL (130-400); RBC 5.19 10^6/uL (3.93-5.22); RDW-SD 42.9 fL
[2023-01-16 18:14] LABS: HCG Quant, Pregnancy 4321 mIU/mL (1-3)
== END 2023-01-16 17:51 | disposition other institution (70) ==
PROVIDERS: Emergency Provider Student in an Organized Health Care Education/Training Program; PCP Family Medicine
DX: O20.0 Threatened abortion (principal); Z3A.08 8 weeks gestation of pregnancy; Z87.891 Personal history of nicotine dependence
CPT/HCPCS: 86900; 86901; 84702; 85025

== ENCOUNTER 2023-01-16 17:17 | Outpatient (CLI) | payer MEDICAID, SELFPAY ==
--- NOTE | 2023-01-16 18:56 | OBCE_ITS ---
Date of service: 01/16/23 Time of Service: 18:56 Assessment and Plan Assessment and plan (1) Rh negative state in antepartum period: Status: Acute Assessment and plan: Patient will receive RhoGAM at today's visit. (2) Spotting affecting in first trimester: Status: Acute Assessment and plan: Concern for threatened AB. Patient has a scheduled appointment in diagnostic imaging on 01/18/2023. She will follow-up in the office with me after the ultrasound. She was counseled regarding signs and symptoms of worsening SAB: Pelvic pain, heavy flow, passage of clots. History of Present Illness History of Present Illness Chief Complaint: Threatened SAB. Narrative: Patient is a 27-year-old 3 para 1 female with LMP of 11/21/2022 who [facility]. After initial confirmation of at 5W2D EGA she developed light vaginal bleeding and underwent a TV OB use/S on 01/08/2023 which confirmed a viable IUP at 6W2D EGA her final EMILEE is 09/01/2023 by LMP confirmed by 6-week ultrasound. She was instructed to follow-up for repeat ultrasound on 01/18/2023. She called me this afternoon to report passing dime size clots. No increase in daily spotting no cramping. She was instructed to present to the emergency department where a CBC was within normal limits, and hCG 4321mIU/ml ( 01/11/23 hCG 2878mIU/ml) Rh-, neg antibody. She was discharged to the for further evaluation. Consults Consult date: 01/16/23 Requesting physician: Rosita Young Review of Systems All systems reviewed & are unremarkable except as noted in HPI and below PFSH All Active Problems (Updated 01/16/23 @ 18:25 by Stacie Rogers MD) Rh negative state in antepartum period (Acute) Distal renal tubular acidosis (Chronic) Hypokalemia due to loss of potassium (Acute) Amenorrhea (Acute) Migraine with aura (Acute) GERD (gastroesophageal reflux disease) (Chronic) Other specified diabetes mellitus with hyperglycemia (Acute) [place] [facility] [place] Patient desires (Acute ~03/2022) Acute hypokalemia (Acute) DB positive (Acute) Blunt chest trauma (Acute) Acidosis, renal tubular (Acute) Constipation, unspecified (Acute) (Acute) Spotting affecting in first trimester (Acute) Medical History (Updated 01/16/23 @ 18:25 by Stacie Rogers MD) Cellulitis of neck Diabetes mellitus Type 2 Hx of ectopic Neck abscess Psoriasis Surgical History (Updated 11/11/21 @ 11:30 by Yuko Hatfield MD) H/O laparoscopy 2019 ectopic , failed MTX Previous section 11/01/19 for breech Family History (Updated 12/28/22 @ 12:02 by Marie Norwood CNM) Father Well adult Mother Well adult Maternal Grandmother Thyroid disease Social History Smoking/Tobacco Use Status: Former Tobacco Use Smoking risk assessment performed?: Yes Alcohol Intake: never Drug use: Never Substance use type: does not use Adopted: No Caregiver/Support person: No Foster care: No Household members: spouse and children Housing: house Number of Children: 1 Communication Needs: None Education Level: high school Do you need help understanding health information?: Often Pets and animals: Yes Pets and animals: dog(s) Sexually active: Yes Do you think of yourself as: straight/heterosexual Current gender identity: female What is your relationship status?: living with partner How often do you talk on the phone with friends or family?: three or more times per week How often do you get together with friends or relatives?: once per week Do you belong to any clubs or organized social groups?: no Panel score (0-1 are the most socially isolated patients): 2 Raquel/Judaism: Pentecostalism Seatbelt use: sometimes Do you feel safe at home: Yes Do you feel safe in your relationship?: Yes History History 3 Para Hx # Term Pregnancies 1 Multiple births Hx # Pregnancies Ectopic pregnancies 1 AB induced Hx Number of Living Children 1 AB spontaneous Past Pregnancies Del. Date GA/Weeks # Preg Succ Route Wgt Sex Labor Lgth Anesth esia Location Prov Complic 06/21/18 11/01/19 Male Delivery Date: 06/21/18 Last Updated by: Yuko Hatfield MD Ectopic . Laparoscopy s/p failed MTX. Exact date unknown - sometime early 2019 Delivery Date: 05/13/20 Last Updated by: Marie Norwood CNM Breech presentation, Vanishing twin, gestational diabetes. Exam Const General: no acute distress Nutritional Appearance: overweight Orientation: alert, awake and oriented x3 Resp Effort & Inspection: normal respiratory effort GI Inspection: normal to inspection Palpation: soft, no masses and nontender Psych Appearance: grossly normal Mental Status: mental status grossly normal Speech and Movement: speech and movement normal Mood: anxious mood Affect: anxious affect WW Pocus Exam Exam testing Date/Time of Exam: Date of exam: 01/16/2023 Time of exam: 7:10 pm Performing Provider: Stacie Rogers EMILEE Calculator Estimated Delivery Date Method Current WG Current Estimate 08/28/23 LMP (Certain) 8w 0d Other Estimates 09/01/23 Ultrasound #1 7w 3d Dating/Viability Fetus A: Fetus ID: Undetermined Is this a repeat study?: Yes Location: Uterus Gestational sac size (cm): 1.43 Gestational age based on measurement: 6w2d heart rate: Absent Other findings: pole which was visible on initial dating ultrasound on 01/08/2023 is not visible today. It is unclear if it is the quality of the images or that there has been embryonic demise. Viability: Indeterminant Coding for Dating/Viability Coding for Transvaginal exam: Complete exam # of Fetuses: Undetermined
== END 2023-01-16 17:18 | disposition home or self-care (01) ==
LOC: BCD 17:18
PROVIDERS: PCP Family Medicine; Visit Provider Obstetrics & Gynecology Gynecology
DX: O26.899 Other specified pregnancy related conditions, unspecified trimester (principal); Z67.91 Unspecified blood type, Rh negative; O26.851 Spotting complicating pregnancy, first trimester
CPT/HCPCS: 86850; 90384

== ENCOUNTER 2023-01-18 14:53 | Outpatient (CLI) | payer MEDICAID, SELFPAY ==
--- NOTE | 2023-01-18 09:30 | DI.US_ITS ---
Exam(s) US OB 1ST TRIMESTER EXAM: US OB 1ST TRIMESTER CLINICAL HISTORY: bleeding with no pole, O20.0, threatened . TECHNIQUE: First trimester obstetrical ultrasound was performed. Transabdominal and transvaginal. COMPARISON: US POCUS EXAM from 01/16/2023 FINDINGS: There is an intrauterine gestational sac. There is no visible yolk sac. There is a pole which does not exhibit heart rate. [place]-rump length measurement is 12 mm, corresponding to 7 weeks and 2 days gestational age. There is suggestion of a small subchorionic hemorrhage. Maternal ovaries: Both appear unremarkable. There is a sliver of fluid in the cul-de-sac. IMPRESSION:: Intrauterine gestation which appears nonviable. No heart rate detected. [place]-r ump length measures 7 weeks and 2 days gestational age. Patient is apparently actively bleeding.. Possible small subchorionic hemorrhage. DATA REPOSITORY:
== END 2023-01-18 15:13 ==
LOC: DI 14:55
PROVIDERS: PCP Family Medicine; Visit Provider Obstetrics & Gynecology Gynecology
DX: O20.0 Threatened abortion (principal)
CPT/HCPCS: 76801

== ENCOUNTER 2023-01-19 06:02 | Day surgery (SDC) | payer MEDICAID, SELFPAY ==
--- NOTE | 2023-01-18 07:58 | POCSPONT_PTH ---
PATIENT: Tea Lewis LOC: [facility] U#:[id number] AGE/SX: 27/F ROOM: RE01/19/[address]: Stacie Rogers : 1995 BED: DIS: 01/19/2023 SPEC #: [id number] RECD: 01/19/23 13:02 STATUS: [facility] #: [id number] ESTEBAN: 01/18/23 07:[address]: Stacie Rogers DEPT: Surgical Specimen RECD BY: Luiza Clay ENTERED: 01/19/23 13:03 SP TYPE: POCDEBRA GUNDERSON DR: Myron Worrell DO Tissues: 1 - ,SPONTANEOUS CHROMOSOME ANALYSIS PROFILE Procedures: GROSS AND MICRO LEVEL 4 CHROMOSOME ANALYSIS 15-20 CELLS CHROMOSOME ANALYSIS TISSUE CULTURE Comments: [id number] ([employer] - [id number])
[2023-01-19 06:32] VITALS: BP 118/61; PULSE 94; RESP 20; TEMP 36.3; O2SAT 98
[2023-01-19] MEDS: Lactated Ringers 1,000 ML 125 ML IV (06:54)
[2023-01-19] MEDS: DOXYCYCLINE 100 MG in Normal Saline 100 ML IVPB (06:54)
--- NOTE | 2023-01-19 07:11 | ANES.PREOP_ITS ---
General Info Date of Service Date Performed: 01/19/23 Height: 5 ft 4 in Weight: 81.3 kg Body Mass Index (BMI): 30.7 Surgical Procedure: Operation Date: 01/19/23 07:40 Proposed Procedure Side Surgeon p Suction D&C Stacie Rogers MD Actual Procedure Side Surgeon p Suction D&C Not Applicable Stacie Rogers MD Meds Allergies and Home Medications Allergies Allergy/AdvReac Type Severity Reaction Status Date / Time No Known Allergies Allergy Verified 01/19/23 06:29 Home Medication Medication Instructions Recorded acetaminophen 500 mg tablet 1,000 mg PO Q6H PRN 12/12/20 (Tylenol Extra Strength) amiloride 5 mg tablet 10 mg PO HS 04/13/22 potassium chloride 20 mEq oral 40 meq PO TID hypokalemia #30 ea 07/06/22 packet (Klor-Con) omeprazole 20 mg capsule,delayed 20 mg PO DAILY PRN reflux #90 caps 08/07/22 release flash glucose sensor (FreeStyle #2 ea 10/02/22 Iraida 2 Sensor kit) ferrous sulfate 325 mg (65 mg 325 mg PO DAILY #90 tabs 12/28/22 iron) tablet (Feosol) sodium bicarbonate 650 mg tablet 650 mg PO TID 12/28/22 Current Visit Medications: Current Medications Generic Name Dose Route Start Last Admin Trade Name Carmita PRN Reason Stop Dose Admin Ringer's Solution 1,000 mls @ 125 mls/hr 01/19/23 06:00 01/19/23 07:00 IV 02/17/23 23:59 125 mls/hr INFUSION DILIA Infusion Doxycycline Hyclate 100 mg/ 100 mls @ 100 mls/hr 01/19/23 06:00 01/19/23 06:54 Sodium Chloride IVPB 01/19/23 16:00 100 mls/hr PREOP DILIA Administration IV Miscellaneous Supplies 1 each 01/19/23 06:00 Iv Access IV 02/17/23 23:59 DIRECTED DILIA Sodium Chloride 0 ml 01/19/23 06:00 Normal Saline Flush 10 Ml Syr IV 02/17/23 23:59 PRN PRN Sodium Chloride 0 ml 01/19/23 06:00 Normal Saline 10 Ml Vial IJ 02/17/23 23:59 DIRECTED PRN Sterile Water 0 ml 01/19/23 06:00 Water,Injection,Sterile 10 Ml Vial IJ 02/17/23 23:59 DIRECTED PRN PFSH Active Problems Active Problems: Problem Status Onset Code Miscarriage, threatened, early O20.0 Rh negative state in antepartum period O26.899, Z67.91 Distal renal tubular acidosis N25.89 Hypokalemia due to loss of potassium E87.6 Amenorrhea N91.2 Migraine with aura G43.109 GERD (gastroesophageal reflux disease) K21.9 Other specified diabetes mellitus with hyperglycemia E13.65 Patient desires ~03/2022 Z31.9 Acute hypokalemia E87.6 DB positive R76.8 Blunt chest trauma S29.8XXA Acidosis, renal tubular N25.89 Constipation, unspecified K59.00 Z34.90 Spotting affecting in first trimester O26.851 Medical History Medical History Cellulitis of neck Diabetes mellitus Type 2 Hx of ectopic Neck abscess Psoriasis Surgical History Surgical History H/O laparoscopy 2019 ectopic , failed MTX Previous section 11/01/19 for breech Tobacco Smoking/Tobacco Use Status: Former Tobacco Use Alcohol Alcohol Intake: never Substance Use Substance use: Never Substance use type: does not use Prental History History 3 Para Hx # Term Pregnancies 1 Multiple births Hx # Pregnancies Ectopic pregnancies 1 AB induced Hx Number of Living Children 1 AB spontaneous Past Pregnancies Del. Date GA/Weeks # Preg Succ Route Wgt Sex Labor Lgth Anesth esia Location [facility] 06/21/18 11/01/19 Male Delivery Date: 06/21/18 Last Updated by: Yuko Hatfield MD Ectopic . Laparoscopy s/p failed MTX. Exact date unknown - sometime early 2018 Delivery Date: 11/01/19 Last Updated by: Marie Norwood CNM Breech presentation, Vanishing twin, gestational diabetes. Vital Signs and Lab Results Vital Signs Most Recent Vital Signs in EMR: Most Recent Vital Signs Temp Pulse Resp BP Pulse Ox 36.3 C L 94 H 20 118/61 98 01/19/23 06:32 01/19/23 06:32 01/19/23 06:32 01/19/23 06:32 01/19/23 06:32 Lab Results Blood Type / Crossmatch: Patient ABO/Rh B Negative 01/16/23 Antibody Screen NEGATIVE 01/16/23 Complete Blood Count: White Blood Count 11.40 10^3/uL (4.4-10.8) H 01/16/23 17:15 Red Blood Count 5.19 10^6/uL (3.93-5.22) 01/16/23 17:15 Hemoglobin 14.2 g/dL (11.2-15.7) 01/16/23 17:15 Hematocrit 43.3 % (36.0-46.0) 01/16/23 17:15 Platelet Count 264 10^3/uL (130-400) 01/16/23 17:15 Complete Metabolic Panel: Sodium 137 mmol/L (136-145) 12/28/22 12:30 Potassium 4.0 mmol/L (3.5-5.1) 12/28/22 12:30 Chloride 108 mmol/L (98-107) H 12/28/22 12:30 Carbon Dioxide 17.7 mmol/L (21.0-32.0) L 12/28/22 12:30 BUN 17 mg/dL (7-18) 12/28/22 12:30 Creatinine 1.2 mg/dL (0.55-1.02) H 12/28/22 12:30 Est GFR (CKD-EPI 2020) 63.23 (mL/min/1.73m2) 12/28/22 12:30 Magnesium 2.5 mg/dL (1.8-2.4) H 12/28/22 12:30 Calcium 9.1 mg/dL (8.5-10.1) 12/28/22 12:30 Albumin 4.1 g/dL (3.4-5.0) 12/28/22 12:30 Glucose 109 mg/dL (74-106) H 12/28/22 12:30 Hemoglobin A1c 6.6 % (<5.7) H 12/28/22 12:17 Liver Function Panel: Alanine Aminotransferase (ALT/SGPT) 42 U/L (14-59) 12/28/22 12: 30 Aspartate Amino Transf (AST/SGOT) 25 U/L (15-37) 12/28/22 12:30 Coagulation Panel: No Data to Display Cardiac Panel: No Data to Display Arterial Blood Gas: No Data to Display Venous Blood Gas: No Data to Display Pancreas Panel: No Data to Display Thyroid Panel: Thyroid Stimulating Hormone (TSH) 3.75 uIU/mL (0.36-3.74) H 12/28/22 12:30 Infectious Disease: No Data to Display Blood Cultures: No Data to Display Toxicology Panel: No Data to Display Panel: Urine HCG, Qualitative Positive 12/28/22 11:18 Beta HCG, Quantitative 4321 mIU/mL (1-3) H 01/16/23 17:15 Imaging and Studies Imaging and Studies Study information below may be from another EMR and interpreted by another provider. Please see original notes in EMR for more complete details. EKG Summary: Sinus rhythm...normal P axis, V-rate 60- 99 Anesthesia Assessment and Plan Anesthesia History Personal History: No History of Anesthesia Complications Family History: No Family History of Anesthesia Complications Exercise Tolerance Exercise Tolerance: Metabolic Equivalents>4 Pertinent Negatives Pertinent Negatives: No Symptoms of GERD, No Major Cardiovascular Symptoms or Complaints, No Major Pulmonary Symptoms or Complaints and No History of CVA/TIA Cardiac & Pulmonary Exam Cardiac Exam: Normal S1/S2 Heart Sounds Pulmonary Exam: Clear Bilateral Breath Sounds Implantable Cardiac Device Does patient have a Pacemaker or an ICD?: No Airway Exam Known Difficult Airway: No Mallampati Class: 3 Mouth Opening: Normal (> 3cm) Thyromental Distance: Less than 3 cm Neck Range of Motion: Full ROM Neck Circumference: Thick Teeth Condition: Normal Dentition and Loose or Chipped (bottom left chipped, none loose) ASA Classification ASA Score: ASA 2 Emergency Case?: No NPO Status NPO Status: NPO Clears >2 hours, Solids >8 hours Status Status: Other (incomplete miscarriage) Anesthesia Plan Resuscitation Status: Full Code Anesthesia Technique: General Anesthesia Airway Planned: Natural Airway Monitors Used: Standard Monitors Preoperative Comments:: Blood sugar 227
[2023-01-19 07:12] VITALS: BMI 30.7
[2023-01-19] MEDS: Bupivacaine 0.25% Pres-Free 30 ML VIAL (07:59)
[2023-01-19 08:10] VITALS: BP 117/71; PULSE 81; RESP 14; TEMP 36.5; O2SAT 92
--- NOTE | 2023-01-19 08:33 | PDOC.DSDIS_ITS ---
Date of service: 01/19/23 Time of Service: 08:33 Discharge Plan Disposition Patient Disposition: Home Condition: Improving Discharge Details Reason For Visit: D&C inevitable SAB Attending Provider: Stacie Rogers Primary Care Provider: Myron Worrell Home Meds and New Rx's Prescriptions: No Action acetaminophen [Tylenol Extra Strength] 500 mg tablet 1,000 mg PO Q6H PRN Patient Comments: states not taking potassium chloride [Klor-Con] 20 mEq packet 40 meq PO TID Qty: 30 0RF Rx Instructions: Take one packet mixed with 8 oz liquid three times daily sodium bicarbonate 650 mg tablet 650 mg PO TID Patient Comments: 12/28/22- per pt report ferrous sulfate [Feosol] 325 mg (65 mg iron) tablet 325 mg PO DAILY Qty: 90 3RF amiloride 5 mg tablet 10 mg PO HS Patient Comments: 03/31/22- pt reports [facility] [place] neph instructed her to start taking this at bedtime. Rx Instructions: with KCL reduction by 50% per [facility] [place]08/21. cc 04/08/22 [facility] omeprazole 20 mg capsule,delayed release(DR/EC) 20 mg PO DAILY PRN (Reason: reflux) Qty: 90 3RF Patient Comments: sttates not taking (DME) FreeStyle Iraida 2 Sensor Kit See Rx Instructions .ROUTE .MEDSUPPLY Qty: 2 11RF Rx Instructions: As directed, E11.65, on multiple daily doses of insulin, A1C goal less than 6.5% Discharge Instructions Additional Instructions: Make an appointment to follow-up with Dr. Rogers in approximately 2 weeks. Your sugar may be elevated because of the procedure. It should return to normal in 48 hours. Stand Alone Forms: DSU Post Suction D+C Activity:: Activity as Tolerated Diet:: As Tolerated Discharge Orders Discharge Orders: Discharge Order (Routine); Ordered 01/19/23 Ordered By: Stacie Rogers
--- NOTE | 2023-01-19 08:36 | ROE_ITS ---
Date of service: 01/19/23 Time of Service: 08:36 Operative Note Operative Note DATE OF PROCEDURE: 01/19/23 PRE-OP DIAGNOSIS: Inevitable SAB at 7 weeks EGA POST-OP DIAGNOSIS: same PROCEDURE: Cervical dilation and suction evacuation of uterine contents SURGEON: Stacie Rogers Refer to Anesthesia Record ESTIMATED BLOOD LOSS: 5 PATHOLOGY: other (Products of conception to pathology for gross and cytogenetic analysis) COMPLICATIONS: None Patient was transported to: same day Patient's condition: stable Indications: Patient is a 27-year-old 3 para 1 female who presented at 6 weeks estimated stational age with a viable IUP and uterine bleeding. Over the course of the week her bleeding persisted and on 01/16/2023 she was reevaluated with a [id number] ultrasound on the center and found to have gestational sac without evidence of a pole. No dose of RhoGAM at that time. Repeat imaging and diagnostic imaging on confirmed a nonviable IUP. Patient was counseled and excepted a D&C. Findings: Transabdominal ultrasound performed prior to the procedure gestational sac without evidence of pole. Uterus sounded to 9 cm. Moderate amount of products of conception returned. At the completion of the procedure the transabdominal ultrasound showed a empty uterine cavity with a normal-appearing endometrial stripe Procedure Description: Patient was taken to the operating room where she was placed in the dorsal supine position and general anesthesia was administered without difficulty. IV Doxycycline was administered upon arrival in the OR. She was then placed in the dorsal lithotomy position in [facility] stirrups in a neurologically neutral position. She was then prepped, and draped in the usual sterile fashion. Surgical timeout was performed. Epworth speculum was placed into the vagina and the anterior lip of the cervix was infiltrated with 2 cc of 0.25% Marcaine without epinephrine. A single-tooth tenaculum was then used to grasp and hold the anterior lip of the cervix. A paracervical block was performed with 4 cc of quarter percent Marcaine injected into the 4 and 8:00 paracervical spaces respectively. The uterus was sounded to 10 cm. The cervix was then sequentially dilated to a maximum of 16 Dempsey and a 8 mm curved suction cannula was attached to suction and the level of suction tested. The cannula was inserted into the uterine cavity attached to suction and sequentially all 4 quadrants of the uterine cavity were suction curetted until minimal tissue returned. The suction cannula was then removed a banjo curette was used to perform a gentle curetting of all 4 quadrants of the uterine cavity. Minimal tissue was returned. A final insertion of the suction cannula and suction curetting of all 4 quadrants was performed with minimal tissue returned. All instruments were removed from the vagina tenaculum site was hemostatic. Patient was awakened and transported to recovery area in stable condition. All sponge lap needle counts correct x2
--- NOTE | 2023-01-19 08:39 | W.ANESPOSTOP ---
Postoperative Evaluation Date, Time and Location Date Performed: 01/19/23 Time Performed: 08:39 Patient Location: Day Surgery Unit Vital Signs Most Recent Imported Vital Signs: Most Recent Vital Signs Temp Pulse Resp BP Pulse Ox 36.5 C 81 14 117/71 92 01/19/23 08:10 01/19/23 08:10 01/19/23 08:10 01/19/23 08:10 01/19/23 08:10 Pain Score Most Recent Pain Score: Most Recent Pain Score Pain Level 0 01/19/23 06:32 Assessment Mental Status: Awake (Alert & Oriented to Patient Baseline) Airway and Respiratory Function: Patent airway with normal (patient baseline) respiratory exam Cardiovascular Function: Hemodynamically Stable Hydration Status: Adequately Hydrated Nausea & Vomiting: No Nausea or Vomiting Pain: Pain is Moderate or Severe Postoperative Pain Management: Pain being addressed with medication Peripheral Nerve Block: Patient did not receive a nerve block
[2023-01-19] MEDS: Acetaminophen 500 MG TAB 1000 MG PO (08:41)
[2023-01-19 08:42] VITALS: BP 110/70; PULSE 75; RESP 18; TEMP 36; O2SAT 98
== END 2023-01-19 09:25 | disposition home or self-care (01) ==
PROVIDERS: PCP Family Medicine; Visit Provider Obstetrics & Gynecology Gynecology
PROC: (CPT 59841; principal; 2023-01-19 07:30)
DX: O02.1 Missed abortion (principal); Z3A.01 Less than 8 weeks gestation of pregnancy; O36.0910 Maternal care for other rhesus isoimmunization, first trimester, not applicable or unspecified; O26.831 Pregnancy related renal disease, first trimester; N25.89 Other disorders resulting from impaired renal tubular function
CPT/HCPCS: 59820; 88305; 88233; 88262; J1100; J1885; J2001; J2250; J2405

== ENCOUNTER 2023-02-09 04:28 | Outpatient (CLI) | payer MEDICAID, SELFPAY ==
[2023-02-09 12:20] LABS: HCG Quant, Pregnancy 1 mIU/mL (1-3)
== END 2023-02-09 04:29 | disposition home or self-care (01) ==
LOC: LBO 04:28
PROVIDERS: Obstetrics & Gynecology Gynecology; PCP Family Medicine; Visit Provider Advanced Practice Midwife
DX: O02.1 Missed abortion (principal)
CPT/HCPCS: 36415; 84702

== ENCOUNTER 2023-05-05 16:34 | Emergency (ER) | payer MEDICAID, SELFPAY ==
--- NOTE | 2023-05-05 16:30 | DI.CT_ITS ---
Exam(s) CT ABDOMEN PELVIS W EXAM: CT ABDOMEN PELVIS W CLINICAL HISTORY: rlq abdominal pain. TECHNIQUE: Imaging Protocol: Axial computed tomography images with coronal and sagittal reformatted images were created and reviewed CONTRAST MATERIAL: Intravenous: Omnipaque 350 Contrast volume:100 ml Oral: yes / no COMPARISON: No exams were available for comparison FINDINGS: ABDOMEN and PELVIS: Lung Bases: No acute findings. Liver: Mildly enlarged. Moderate to severe hepatic steatosis. No measurable mass. Gallbladder and biliary tract: No radiodense calculus or dilation. Pancreas: Normal density. No abnormal calcifications or inflammatory process. No evidence of mass. Spleen: Normal. Kidneys: Normal size, contour and axis. Prominent medullary nephrocalcinosis. No obstructive uropat hy. No suspicious masses seen. Adrenal glands: No masses seen. Vasculature: Abdominal aorta non-dilated. Soft tissues: Unremarkable. Bladder: No gross wall thickening. No calculi.No focal mass. Bowel: No obstruction. No bowel wall thickening. Appendix normal. Peritoneal cavity: No ascites. No focal collection or mesenteric inflammatory response. Bones: Unremarkable for age. Reproductive organs: Within normal limits. Lymph nodes: Unremarkable. IMPRESSION:: Bilateral medullary nephrocalcinosis. No acute abnormality. RADIATION DOSE DELIVERED: Total DLP DATA REPOSITORY: All CT scans at this facility are submitted to the National Radiology Data Registry (NRDR) Dose Index Registry (DIR) with the [employer] (ACR). RADIATION OPTIMIZATION: All CT scans at this facility use at least one of these dose optimization te chniques: automated exposure control; mA and/or kV adjustment per patient size (includes targeted exa ms where dose is matched to clinical indication); or iterative reconstruction.
[2023-05-05 16:38] VITALS: BP 173/89; PULSE 101; RESP 18; TEMP 37.4; O2SAT 100
--- NOTE | 2023-05-05 16:45 | W.ED.GENAD ---
Discharge Plan Disposition Patient Disposition: Home Discharge Details Clinical Impression: Abdominal pain, Hypokalemia due to loss of potassium, UTI (urinary tract infection) Primary Care Provider: Myron Worrell ED Provider: Gwyn Lopez Home Meds and New Rx's Prescriptions: New cephalexin 500 mg capsule 500 mg PO QID 5 Days Qty: 20 0RF No Action acetaminophen [Tylenol Extra Strength] 500 mg tablet 1,000 mg PO Q6H PRN Patient Comments: states not taking potassium chloride [Klor-Con] 20 mEq packet 40 meq PO TID Qty: 30 0RF Rx Instructions: Take one packet mixed with 8 oz liquid three times daily sodium bicarbonate 650 mg tablet 650 mg PO TID Patient Comments: 12/28/22- per pt report ferrous sulfate [Feosol] 325 mg (65 mg iron) tablet 325 mg PO DAILY Qty: 90 3RF tramadol 100 mg tablet 100 mg PO TID PRN (Reason: pain) Qty: 7 0RF amiloride 5 mg tablet 10 mg PO HS Patient Comments: 03/31/22- pt reports [facility] neph instructed her to start taking this at bedtime. Rx Instructions: with KCL reduction by 50% per [facility] note dated 12/08/21. cc 04/08/22 [facility] omeprazole 20 mg capsule,delayed release(DR/EC) 20 mg PO DAILY PRN (Reason: reflux) Qty: 90 3RF Patient Comments: sttates not taking (DME) FreeStyle Iraida 2 Sensor Kit See Rx Instructions .ROUTE .MEDSUPPLY Qty: 2 11RF Rx Instructions: As directed, E11.65, on multiple daily doses of insulin, A1C goal less than 6.5% Discharge Instructions Instructions: Urinary Tract Infection in Women (ED), Hypokalemia (ED), Abdominal Pain (ED) Additional Instructions: You were seen in the emergency department for abdominal pain. We performed a CAT scan of your abdomen that was unremarkable with no clear cause for your pain. It is possible that he could have a muscle strain and you can take Tylenol and ibuprofen for your discomfort. This should improve over the next few days. You were incidentally found to have something called bilateral medullary nephrocalcinosis which is some calcium deposition on your kidneys. You should simply let your educator senior clinical know about this finding if they are not already aware. Your potassium was a little bit low and we gave you some potassium here. You should take 40 mEq of potassium 4 times a day which is an increase from your normal 3 times a day. You should do this for the next 5 days and follow-up with your primary care doctor or educator senior clinical to have your potassium rechecked. You possibly have a UTI and we sent you a few days of antibiotics. Return to the emergency department if you have any other symptoms. Follow-up with your primary care doctor and educator senior clinical. Referrals: Myron Worrell, [Primary Care Provider] - 3 days Medical Decision Making This is a 27-year-old female who presents with right lower quadrant abdominal pain. Could represent appendicitis or other intra-abdominal abscess and will get CT abdomen pelvis. This could also represent kidney stone which would also be seen on a CT abdomen pelvis. Doubt biliary source of her symptoms but will get biliary labs to look for signs of hepatitis, pancreatitis, or other biliary disease. Doubt but will check a UPT. We will get broad labs look for electrolyte or metabolic cause of the patient's symptoms. We will keep the patient n.p.o. with some IV fluids and analgesia while awaiting initial testing and reevaluate. 611pm CT unremarkable. Incidentally found to have bilateral medullary nephrocalcinosis. Renal functions unremarkable. Unlikely the cause of her pain and she can follow-up with her educator senior clinical. Labs mostly unremarkable but does have a potassium to 2.5. No EKG changes. Likely not explaining her symptoms. We will give her some IV and p.o. potassium here as well as magnesium and send her home with an additional dose of her home potassium oral supplementation. This low potassium is likely chronic in the setting of her renal tubular acidosis. I told her to follow-up with her educator senior clinical as soon as possible and her primary care doctor. She is agreeable with this plan. Abdominal pain likely secondary to muscle strain. We will supplement her potassium and discharged with return precautions. Urine is showing some leukocytes and bacteria with a clean sample. She does not have urine symptoms and the pain is unlikely due to UTI but will treat with antibiotics regardless in the outpatient setting. Urine culture in process. Medical Records Medical records reviewed: Yes I reviewed the patient's medical records. Imaging Data Radiologic Study: Imaging: CT Scan (abdomen and pelvis) Radiologist's impression: IMPRESSION:: Bilateral medullary nephrocalcinosis. No acute abnormality. Lab Data Lab results reviewed: Yes I reviewed the patient's lab results. Labs: Mild leukocytosis. Hypokalemia to 2.5. Remainder of labs mostly unremarkable. Urine showing some leukocytes ECG Data Attestation: I personally reviewed and interpreted this ECG (s) as follows: Prior ECG tracings: available for review Interpretation: Normal sinus rhythm and normal axis. Rate of 73. Normal KS intervals and no ST or T wave changes. Otherwise unremarkable EKG. HPI General Mode of arrival: ambulatory. Date/Time Provider Initiated Documentation: 05/05/23 16:36. Limitations to Documentation: no limitations. Information obtained by: patient. HPI Narrative: 27-year-old female presents with right lower quadrant abdominal pain. Has been going on for 2 days. Describes it as sharp and burning. Worse with movement. Worse with pushing on it. Denies any other symptoms. No fevers or chills. No nausea or vomiting. No urinary symptoms. No diarrhea or significant constipation. No black or bloody stools. No vaginal bleeding or discharge. Related Data Home Medications Medication Instructions Recorded Confirmed acetaminophen 500 mg tablet 1,000 mg PO Q6H PRN 12/12/20 02/04/23 (Tylenol Extra Strength) amiloride 5 mg tablet 10 mg PO HS 04/13/22 02/04/23 potassium chloride 20 mEq oral 40 meq PO TID hypokalemia #30 ea 07/06/22 02/04/23 packet (Klor-Con) omeprazole 20 mg capsule,delayed 20 mg PO DAILY PRN reflux #90 caps 08/07/22 02/04/23 release flash glucose sensor (FreeStyle #2 ea 10/02/22 02/04/23 Iraida 2 Sensor kit) ferrous sulfate 325 mg (65 mg 325 mg PO DAILY #90 tabs 12/28/22 02/04/23 iron) tablet (Feosol) sodium bicarbonate 650 mg tablet 650 mg PO TID 12/28/22 02/04/23 tramadol 100 mg tablet 100 mg PO TID PRN pain #7 tabs 01/19/23 02/04/23 cephalexin 500 mg capsule 500 mg PO QID 5 days #20 caps 05/05/23 Previous Rx's Medication Instructions Recorded potassium chloride 20 mEq oral 40 meq PO TID hypokalemia #30 ea 07/06/22 packet (Klor-Con) omeprazole 20 mg capsule,delayed 20 mg PO DAILY PRN reflux #90 caps 08/07/22 release flash glucose sensor (FreeStyle #2 ea 10/02/22 Iraida 2 Sensor kit) ferrous sulfate 325 mg (65 mg 325 mg PO DAILY #90 tabs 12/28/22 iron) tablet (Feosol) tramadol 100 mg tablet 100 mg PO TID PRN pain #7 tabs 01/19/23 cephalexin 500 mg capsule 500 mg PO QID 5 days #20 caps 05/05/23 Allergies Allergy/AdvReac Type Severity Reaction Status Date / Time No Known Allergies Allergy Verified 01/19/23 06:29 General Stated Complaint: Abd Prob BHASKAR: 3 Review of Systems Constitutional Constitutional: Denies chills, Denies fever(s) and Denies headache(s) Eyes Eyes: Denies change in vision ENT Ears, Nose, Mouth, and Throat: Denies headache(s) and Denies odynophagia Cardiovascular Cardiovascular: Denies chest pain and Denies dyspnea Respiratory Respiratory: Denies dyspnea Gastrointestinal Gastrointestinal: Reports abdominal pain, Denies diarrhea, Denies nausea, Denies odynophagia and Denies vomiting Genitourinary Genitourinary: Denies dysuria Musculoskeletal Musculoskeletal: Denies myalgias Integumentary/Breasts Skin/Breast: Denies changing lesions Neurologic Neurologic: Denies behavioral changes and Denies headache(s) Psychiatric Psychiatric: Denies behavioral changes Endocrine Endocrine: Denies heat intolerance Hematologic/Lymphatic Hematologic/Lymphatic: Denies lymphadenopathy PFSH All Active Problems (Updated 05/05/23 @ 18:19 by Gwyn Lopez MD) UTI (urinary tract infection) (Acute) Abdominal pain (Acute) Hx of dilation and curettage (Acute) Rh negative state in antepartum period (Acute) Distal renal tubular acidosis (Chronic) Hypokalemia due to loss of potassium (Acute) Amenorrhea (Acute) Migraine with aura (Acute) GERD (gastroesophageal reflux disease) (Chronic) Other specified diabetes mellitus with hyperglycemia (Acute) 09/12/21 [facility] Endocrinology Patient desires (Acute ~03/2022) Acute hypokalemia (Acute) DB positive (Acute) Blunt chest trauma (Acute) Acidosis, renal tubular (Acute) Constipation, unspecified (Acute) (Acute) Spotting affecting in first trimester (Acute) Medical History Psoriasis Diabetes mellitus Type 2 Neck abscess Cellulitis of neck Hx of ectopic Surgical History H/O laparoscopy 2018 ectopic , failed MTX Previous section 11/01/19 for breech Family History Father Well adult Mother Well adult Maternal Grandmother Thyroid disease Social History Smoking/Tobacco Use Status: Former Tobacco Use Quit Date: 06/21/19 Smoking risk assessment performed?: Yes Alcohol Intake: never Drug use: Never Substance use type: does not use Adopted: No Caregiver/Support person: No Foster care: No Household members: spouse and children Housing: house Number of Children: 1 Communication Needs: None Education Level: high school Do you need help understanding health information?: Often Pets and animals: Yes Pets and animals: dog(s) Sexually active: Yes Do you think of yourself as: straight/heterosexual Current gender identity: female What is your relationship status?: living with partner How often do you talk on the phone with friends or family?: three or more times per week How often do you get together with friends or relatives?: once per week Do you belong to any clubs or organized social groups?: no Panel score (0-1 are the most socially isolated patients): 2 Raquel/[employer]: [employer] Seatbelt use: sometimes Do you feel safe at home: Yes Do you feel safe in your relationship?: Yes History History 3 Para Hx # Term Pregnancies 1 Multiple births Hx # Pregnancies Ectopic pregnancies 1 AB induced Hx Number of Living Children 1 AB spontaneous Past Pregnancies Del. Date GA/Weeks # Preg Succ Route Wgt Sex Labor Lgth Anesthesia Location Prov Complic 06/21/18 11/01/19 Male Delivery Date: 06/21/18 Last Updated by: Yuko Hatfield MD Ectopic . Laparoscopy s/p failed MTX. Exact date unknown - sometime early 2018 Delivery Date: 11/01/19 Last Updated by: Marie Norwood CNM Breech presentation, Vanishing twin, gestational diabetes. Exam Const General: cooperative Nutritional Appearance: average body habitus Orientation: alert, awake and oriented x3 HENMT Head: normal to inspection Ears: external ears normal Mouth: moist mucous membranes Eyes Pupils: PERRL EOM: EOM intact bilaterally and No nystagmus Neck Neck: full ROM and no tracheal deviation Chest Chest: normal inspection of the chest Resp Auscultation: clear to auscultation bilaterally Cardio Rate: regular rate Rhythm: regular rhythm GI Palpation: soft, no guarding, not rigid and tender Other: Tenderness in the right lower quadrant abdomen with no guarding, rigidity, or rebound Back/Spine/Pelvis Back: No no CVA tenderness Thoracic/Lumbar Spine: thoracic and lumbar spine normal to inspection Skin General skin exam: no rashes or lesions noted Neuro General: patient alert, patient awake and patient oriented x3 Cranial Nerves: CN's II-XI intact bilaterally, PERRL and no nystagmus Cognition: normal cognition Motor: muscle tone normal throughout and strength 5/5 throughout Sensory Exam: no sensory deficits noted Extrem General: normal to inspection Course Vital Signs Vital signs: Vital Signs Temperature 37.4 C 05/05/23 16:38 Pulse 101 H 05/05/23 16:38 Respiratory Rate 18 05/05/23 16:38 Blood Pressure 173/89 H 05/05/23 16:38 Pulse Oximetry 100 05/05/23 16:38 Temperature 37.4 C 05/05/23 16:38 Pulse 101 H 05/05/23 16:38 Respiratory Rate 18 05/05/23 16:38 Blood Pressure 173/89 H 05/05/23 16:38 Pulse Oximetry 100 05/05/23 16:38 Oxygen Delivery Method Room Air 05/05/23 16:38 Oxygen Flow Rate 0 05/05/23 16:38
[2023-05-05] MEDS: Ketorolac 15 MG/ML VIAL IVP (17:07)
[2023-05-05] MEDS: Lactated Ringers 1,000 ML 1000 ML IV (17:08)
[2023-05-05 17:15] LABS: Abs Immature Grans 0.22 10^3/uL (0.0-0.06); Absolute Lymphocyte Count 3.61 10^3/uL (1.2-3.4); Absolute Monocyte Count 0.91 10^3/uL (0.1-0.8); Absolute Neutrophil Count 9.85 10^3/uL (1.2-6.7); Basophils % 0.7; Eosinophils % 1.1; HCT 46.5 % (36.0-46.0); HGB 15.5 g/dL (11.2-15.7); Immature Grans % 1.5; Lymphocytes % 24.3; MCH 27.2 pg (27.0-33.0); MCHC 33.3 % (32.0-36.0); MCV 82 fL (80-95); MPV 9.5 fL (8.0-11.0); Monocytes % 6.1; Neutrophils % 66.3; Platelet Count 319 10^3/uL (130-400); RBC 5.69 10^6/uL (3.93-5.22); RDW 14.9 % (11.7-14.6); RDW-SD 43.7 fL; WBC 14.86 10^3/uL (4.4-10.8)
[2023-05-05 17:17] LABS: Absolute Eosinophil Count 0.16 10^3/uL (0.0-0.7)
[2023-05-05 17:19] LABS: Bilirubin Negative (Negative); Blood Trace-intact (Negative); Clarity Clear (Clear); Glucose Negative (Negative); Ketones Negative (Negative); Leukocyte Esterase Moderate (Negative); Nitrite Negative (Negative); Specific Gravity 1.015 (1.005-1.025); Urobilinogen 0.2 mg/dL (Up to 0.2)
[2023-05-05] MEDS: Normal Saline - Diluent 50 ML VIAL IJ (17:21)
[2023-05-05] MEDS: Omnipaque 350 MG/ML 100 ML BTL IJ (17:21)
[2023-05-05 17:24] LABS: Bacteria Moderate HPF (Negative); Casts Negative LPF (Negative); Crystals Negative HPF (Negative); Epithelial Cells Moderate HPF (Negative); Mucus Negative (Negative); RBC 0-2 HPF (0-2)
[2023-05-05 17:25] LABS: C & S Indicated? No/Sq. Contamination; Lipase 85 U/L (16-77)
--- NOTE | 2023-05-05 17:30 | RT.EKG_ITS ---
APPROVED REPORT Exam: Resting ECG Reason for Exam: electrolyte abnormality Patient Location: E HR:73 bpm ECG Measurements Heart Rate 73 AXIS OK 190 P 53 QRSd 87 QRS 66 QT 407 T 39 QTc 447 Conclusion Sinus rhythm...normal P axis, V-rate 60- 99
[2023-05-05 17:31] LABS: ALT 56 U/L (14-59); AST 22 U/L (15-37); Albumin 3.9 g/dL (3.4-5.0); Alkaline Phosphatase 112 U/L (46-116); Anion Gap 13.7 mmol/L (3-11); BUN 20 mg/dL (7-18); Bilirubin, Total 0.3 mg/dL (0.2-1.0); CO2 18.3 mmol/L (21.0-32.0); CREATININE 1.2 mg/dL (0.55-1.02); Calcium 9.2 mg/dL (8.5-10.1); Chloride 105 mmol/L (98-107); Estimated GFR 63.23 (mL/min/1.73m2); Glucose 132 mg/dL (74-106); Sodium 137 mmol/L (136-145); Total Protein 8.5 g/dL (6.4-8.2)
[2023-05-05 17:33] LABS: Potassium 2.5 mmol/L (3.5-5.1)
--- NOTE | 2023-05-05 17:34 | NUR.NOTE ---
Nursing Note: this RN received report from Sly cedeno's K 2.5, reported to
[2023-05-05] MEDS: Potassium Chloride Liquid 20 MEQ PKT 40 MEQ PO (18:19)
[2023-05-05] MEDS: MAGNESIUM SULFATE 2 GM/50 ML BAG IVPB (18:20)
[2023-05-05] MEDS: POTASSIUM CHLORIDE 20 MEQ/100 ML BAG 50 MEQ IVPB (18:21)
[2023-05-05] MEDS: Cephalexin 500 MG CAP PO (18:46)
[2023-05-05 19:10] LABS: Bilirubin Negative (Negative); Blood Trace-intact (Negative); Clarity Clear (Clear); Glucose Negative (Negative); Ketones Negative (Negative); Leukocyte Esterase Small (Negative); Nitrite Negative (Negative); Specific Gravity 1.015 (1.005-1.025); Urobilinogen 0.2 mg/dL (Up to 0.2)
[2023-05-05 19:18] LABS: Bacteria Rare HPF (Negative); C & S Indicated? C&S Done As Ordered; Casts Negative LPF (Negative); Crystals Negative HPF (Negative); Epithelial Cells Few HPF (Negative); Mucus Negative (Negative); RBC 0-2 HPF (0-2)
[2023-05-05 20:43] VITALS: BP 122/85; PULSE 90; RESP 18; TEMP 37.4; O2SAT 97
== END 2023-05-05 20:45 | disposition home or self-care (01) ==
PROVIDERS: Emergency Provider Student in an Organized Health Care Education/Training Program; PCP Family Medicine
DX: R10.31 Right lower quadrant pain (principal); E87.6 Hypokalemia; N39.0 Urinary tract infection, site not specified; E83.59 Other disorders of calcium metabolism; N29 Other disorders of kidney and ureter in diseases classified elsewhere; E11.9 Type 2 diabetes mellitus without complications; Z79.84 Long term (current) use of oral hypoglycemic drugs; Z87.891 Personal history of nicotine dependence
CPT/HCPCS: 80053; 83690; 93005; 96361; 96365; 96366; 96368; 96375; 99285; 74177; 81003; 81015; 85025; 87086; 93010; 99284; J1885; J3480; J3490

== ENCOUNTER 2023-07-09 01:45 | Outpatient (CLI) | payer MEDICAID, SELFPAY ==
[2023-07-09 10:36] LABS: Abs Immature Grans 0.11 10^3/uL (0.0-0.06); Absolute Basophil Count 0.06 10^3/uL (0.0-0.2); Absolute Eosinophil Count 0.09 10^3/uL (0.0-0.7); Absolute Monocyte Count 0.71 10^3/uL (0.1-0.8); Basophils % 0.5; Eosinophils % 0.8; HCT 47.7 % (36.0-46.0); Lymphocytes % 22.4; MCH 27.7 pg (27.0-33.0); MCHC 33.5 % (32.0-36.0); MCV 83 fL (80-95); MPV 9.2 fL (8.0-11.0); Monocytes % 6.3; Platelet Count 297 10^3/uL (130-400); RBC 5.78 10^6/uL (3.93-5.22); RDW-SD 44.4 fL; WBC 11.27 10^3/uL (4.4-10.8)
[2023-07-09 10:37] LABS: Absolute Lymphocyte Count 2.52 10^3/uL (1.2-3.4); Absolute Neutrophil Count 7.78 10^3/uL (1.2-6.7)
[2023-07-09 10:39] LABS: Bilirubin Negative (Negative); Blood Trace-intact (Negative); Clarity Sl Cloudy (Clear); Glucose Negative (Negative); Ketones Negative (Negative); Leukocyte Esterase Moderate (Negative); Nitrite Negative (Negative); Specific Gravity 1.015 (1.005-1.025); Urobilinogen 0.2 mg/dL (Up to 0.2)
[2023-07-09 10:44] LABS: Bacteria Few HPF (Negative); C & S Indicated? No/Sq. Contamination; Casts Negative LPF (Negative); Crystals Negative HPF (Negative); Epithelial Cells Moderate HPF (Negative); Mucus Trace (Negative)
[2023-07-09 11:01] LABS: ALT 74 U/L (14-59); AST 35 U/L (15-37); Albumin 4.1 g/dL (3.4-5.0); Alkaline Phosphatase 134 U/L (46-116); Anion Gap 15.2 mmol/L (3-11); BUN 19 mg/dL (7-18); Bilirubin, Total 0.4 mg/dL (0.2-1.0); CO2 18.8 mmol/L (21.0-32.0); CREATININE 1.4 mg/dL (0.55-1.02); Calcium 9.4 mg/dL (8.5-10.1); Chloride 105 mmol/L (98-107); Estimated GFR 52.55 (mL/min/1.73m2); Glucose 167 mg/dL (74-106); Magnesium 2.7 mg/dL (1.8-2.4); PHOSPHORUS 2.7 mg/dL (2.6-4.7); Sodium 139 mmol/L (136-145); Total Protein 8.7 g/dL (6.4-8.2)
[2023-07-09 11:02] LABS: Hemoglobin A1C 7.6 % (<5.7)
[2023-07-09 11:28] LABS: COMMENT (LAB VIEW ONLY) 20.37 mg/dL
[2023-07-09 11:34] LABS: Potassium 2.7 mmol/L (3.5-5.1)
[2023-07-09 20:26] LABS: Parathyroid Hormone,Intact 42 pg/mL (19-88)
== END 2023-07-09 01:46 | disposition home or self-care (01) ==
PROVIDERS: PCP Family Medicine; Visit Provider Internal Medicine Nephrology
DX: N18.2 Chronic kidney disease, stage 2 (mild) (principal); E11.9 Type 2 diabetes mellitus without complications
CPT/HCPCS: 36415; 80053; 81003; 81015; 82043; 82570; 83036; 83735; 83970; 84100; 85025

== ENCOUNTER 2023-08-16 05:08 | Outpatient (CLI) | payer MEDICAID, SELFPAY ==
[2023-08-16 15:17] LABS: Anion Gap 16.5 mmol/L (3-11); BUN 23 mg/dL (7-18); CO2 14.5 mmol/L (21.0-32.0); CREATININE 1.4 mg/dL (0.55-1.02); Calcium 9.2 mg/dL (8.5-10.1); Chloride 109 mmol/L (98-107); Estimated GFR 52.23 (mL/min/1.73m2); Glucose 131 mg/dL (74-106); Sodium 140 mmol/L (136-145)
== END 2023-08-16 05:09 | disposition home or self-care (01) ==
LOC: LBO 05:08
PROVIDERS: PCP Family Medicine; Visit Provider Family Medicine
DX: E87.6 Hypokalemia (principal); E11.9 Type 2 diabetes mellitus without complications; N18.2 Chronic kidney disease, stage 2 (mild)
CPT/HCPCS: 36415; 80048

== ENCOUNTER 2023-12-30 12:03 | Outpatient (REF) | payer MEDICAID, SELFPAY ==
[2023-12-30 14:47] LABS: Anion Gap 13.2 mmol/L (3-11); BUN 19 mg/dL (7-18); CO2 16.8 mmol/L (21.0-32.0); CREATININE 1.4 mg/dL (0.55-1.02); Calcium 8.9 mg/dL (8.5-10.1); Chloride 108 mmol/L (98-107); Estimated GFR 52.23 (mL/min/1.73m2); Glucose 113 mg/dL (74-106); Magnesium 2.4 mg/dL (1.8-2.4); PHOSPHORUS 2.6 mg/dL (2.6-4.7); Sodium 138 mmol/L (136-145)
[2023-12-30 14:54] LABS: Potassium 2.7 mmol/L (3.5-5.1)
== END 2023-12-30 12:04 | disposition home or self-care (01) ==
LOC: LBN 12:03
PROVIDERS: PCP Family Medicine; Visit Provider Internal Medicine Nephrology
DX: N25.89 Other disorders resulting from impaired renal tubular function (principal); N18.31 Chronic kidney disease, stage 3a
CPT/HCPCS: 80048; 83735; 84100

== ENCOUNTER 2024-05-17 03:14 | Outpatient (CLI) | payer MEDICAID, SELFPAY ==
[2024-05-17 12:12] LABS: Abs Immature Grans 0.16 10^3/uL (0.0-0.06); Absolute Basophil Count 0.06 10^3/uL (0.0-0.2); Absolute Lymphocyte Count 3.46 10^3/uL (1.2-3.4); Absolute Monocyte Count 1.11 10^3/uL (0.1-0.8); Basophils % 0.5 %; Eosinophils % 0.8 %; HCT 45.6 % (36.0-46.0); HGB 15.5 g/dL (11.2-15.7); Immature Grans % 1.3 %; Lymphocytes % 29.1 %; MCH 29.2 pg (27.0-33.0); MCV 86 fL (80-95); MPV 9.4 fL (8.0-11.0); Monocytes % 9.3 %; Platelet Count 301 10^3/uL (130-400); RBC 5.31 10^6/uL (3.93-5.22); RDW 14.7 % (11.7-14.6); RDW-SD 45.7 fL; WBC 11.89 10^3/uL (4.4-10.8)
[2024-05-17 12:14] LABS: Absolute Neutrophil Count 7.02 10^3/uL (1.2-6.7)
[2024-05-17 12:19] LABS: Creatinine,Urine 17.13 mg/dL; POTASSIUM,URINE RANDOM 21.7 mmol/L
[2024-05-17 12:45] LABS: Anion Gap 11.9 mmol/L (3-11); BUN 17 mg/dL (7-18); CO2 19.1 mmol/L (21.0-32.0); CREATININE 1.3 mg/dL (0.55-1.02); Calcium 9.3 mg/dL (8.5-10.1); Chloride 106 mmol/L (98-107); Estimated GFR 57.09 (mL/min/1.73m2); Glucose 86 mg/dL (74-106); Magnesium 2.4 mg/dL (1.8-2.4); Potassium 3.2 mmol/L (3.5-5.1); Sodium 137 mmol/L (136-145); Vitamin D 25 Total 26.8 ng/mL (30-100)
[2024-05-17 23:08] LABS: Parathyroid Hormone,Intact 26.1 pg/mL (19.0-88.0)
== END 2024-05-17 03:15 | disposition home or self-care (01) ==
LOC: LBO 03:15
PROVIDERS: PCP Family Medicine; Visit Provider Internal Medicine Nephrology
DX: N25.89 Other disorders resulting from impaired renal tubular function (principal); E87.6 Hypokalemia; N28.9 Disorder of kidney and ureter, unspecified; N18.31 Chronic kidney disease, stage 3a
CPT/HCPCS: 36415; 80048; 82306; 82565; 83735; 83970; 84100; 84133; 85025

== ENCOUNTER 2024-10-04 08:37 | Emergency (ER) | payer MEDICAID, SELFPAY ==
[2024-10-04] VITALS (43 sets, daily range): BP systolic 97–118; BP diastolic 62–84; PULSE 70–90; RESP 12–23; TEMP 36.6; O2SAT 98–100
--- NOTE | 2024-10-04 08:45 | RT.EKG_ITS ---
APPROVED REPORT Exam: Resting ECG Reason for Exam: low K Patient Location: E HR:76 bpm ECG Measurements Heart Rate 76 AXIS HI 183 P 70 QRSd 82 QRS 75 QT 388 T 45 QTc 437 Conclusion Sinus rhythm...normal P axis, V-rate 60- 99
[2024-10-04 09:05] LABS: BE (Venous) -9 mmol/L (-2-3); HCO3 (Venous) 18 mmol/L (23-28); O2 Sat (Venous) 32 %; TCO2 (Venous) 16 mmol/L (24-29); pCO2 (Venous) 40 mmHg (41-51); pH (Venous) 7.27 (7.31-7.41); pO2 (Venous) 19 mmHg
[2024-10-04 09:07] LABS: Abs Immature Grans 0.06 10^3/uL (0.0-0.06); Absolute Eosinophil Count 0.16 10^3/uL (0.0-0.7); Absolute Monocyte Count 1.37 10^3/uL (0.1-0.8); Absolute Neutrophil Count 10.11 10^3/uL (1.2-6.7); Basophils % 0.6 %; Eosinophils % 1.1 %; HCT 54.5 % (36.0-46.0); HGB 18.5 g/dL (11.2-15.7); Immature Grans % 0.4 %; Lymphocytes % 17.7 %; MCH 28.6 pg (27.0-33.0); MCHC 33.9 % (32.0-36.0); MCV 84 fL (80-95); MPV 9.7 fL (8.0-11.0); Monocytes % 9.6 %; Neutrophils % 70.6 %; Platelet Count 316 10^3/uL (130-400); RBC 6.47 10^6/uL (3.93-5.22); RDW 14.6 % (11.7-14.6); RDW-SD 42.7 fL; WBC 14.32 10^3/uL (4.4-10.8)
[2024-10-04 09:08] LABS: Absolute Basophil Count 0.09 10^3/uL (0.0-0.2); Absolute Lymphocyte Count 2.53 10^3/uL (1.2-3.4)
[2024-10-04] MEDS: Ondansetron 4 MG/2 ML VIAL IVP (09:12)
[2024-10-04] MEDS: Lactated Ringers 1,000 ML 1000 ML IV (09:12)
[2024-10-04 09:23] LABS: ALT 19 U/L (14-59); AST 12 U/L (15-37); Albumin 4.1 g/dL (3.4-5.0); Alkaline Phosphatase 106 U/L (46-116); Anion Gap 11.6 mmol/L (3-11); BUN 17 mg/dL (7-18); Bilirubin, Total 0.7 mg/dL (0.2-1.0); CO2 20.4 mmol/L (21.0-32.0); CREATININE 1.8 mg/dL (0.55-1.02); Calcium 9.2 mg/dL (8.5-10.1); Chloride 106 mmol/L (98-107); Estimated GFR 38.39 (mL/min/1.73m2); Glucose 159 mg/dL (74-106); Magnesium 2.6 mg/dL (1.8-2.4); Sodium 138 mmol/L (136-145); Total Protein 8.5 g/dL (6.4-8.2)
[2024-10-04 09:24] LABS: Potassium 2.4 mmol/L (3.5-5.1)
[2024-10-04 09:27] LABS: Diff Comment RBC Morph Reviewed; RBC Morphology Normal
--- NOTE | 2024-10-04 09:30 | DI.RAD_ITS ---
Exam(s) XR ABDOMEN FLAT UPRIGHT EXAM: XR ABDOMEN FLAT UPRIGHT CLINICAL HISTORY: abd pain. TECHNIQUE: 2D digital imaging was performed. COMPARISON: No exams were available for comparison FINDINGS: Two views-supine and upright There is no evidence of bowel obstruction nor free intraperitoneal air. However, there is a mild ile us pattern in the upper right iliac fossa. No calcified appendicular lith. There is impressive symmetrical calcifications throughout both kidneys, most probably related to medu llary sponge disease. There are no radiopaque calculi seen along the course of the ureters nor over the urinary bladder region. Regional bones appear unremarkable. IMPRESSION: 1. Mild ileus pattern in the right lower quadrant of the abdomen. 2. Impressive bilateral symmetrical extensive renal calcifications most probably consistent with medu llary sponge kidney disease. No obvious calculi seen along the course of the ureters. DATA REPOSITORY: RADIATION DOSE DELIVERED:
[2024-10-04 09:53] LABS: HCG Qual (Serum) Negative
[2024-10-04] MEDS: POTASSIUM CHLORIDE 20 MEQ/100 ML BAG 50 MEQ IV_INF ×2 (10:04→12:21)
[2024-10-04] MEDS: Potassium Chloride 20 MEQ TABCR PO (14:23)
[2024-10-04 14:50] LABS: Anion Gap 11.5 mmol/L (3-11); BUN 17 mg/dL (7-18); CO2 19.5 mmol/L (21.0-32.0); CREATININE 1.5 mg/dL (0.55-1.02); Calcium 8.3 mg/dL (8.5-10.1); Chloride 108 mmol/L (98-107); Estimated GFR 47.78 (mL/min/1.73m2); Glucose 110 mg/dL (74-106); Sodium 139 mmol/L (136-145)
[2024-10-04 14:52] LABS: Potassium 2.8 mmol/L (3.5-5.1)
--- NOTE | 2024-10-04 14:53 | ED.GENADUL_ITS ---
Discharge Plan Disposition Patient Disposition: Home Condition: Stable Discharge Details Clinical Impression: Hypokalemia, Hypovolemia, Nausea & vomiting, HANNY (acute kidney injury), Renal calcification Primary Care Provider: Myron Worrell ED Provider: Malcom Shaffer Home Meds and New Rx's Prescriptions: New ondansetron 4 mg tablet,disintegrating 4 mg PO Q8H PRNQty: 10 0RF Continued potassium chloride [Klor-Con] 20 mEq packet 40 meq PO TID Qty: 30 0RF Rx Instructions: Take one packet mixed with 8 oz liquid three times daily (DME) FreeStyle Iraida 2 Sensor Kit See Rx Instructions .ROUTE .MEDSUPPLY Qty: 2 11RF Rx Instructions: As directed, E11.65, on multiple daily doses of insulin, A1C goal less than 6.5% sodium bicarbonate 650 mg tablet 650 mg PO QID Rx Instructions: per ov dated 10/07/23 cc semaglutide 1 mg/dose (4 mg/3 mL) pen injector 1 mg subcut QWEEK Qty: 3 6RF Discharge Instructions Instructions: Hypokalemia, Nausea and Vomiting, Adult ED Additional Instructions: Please take nausea medicine as prescribed. Please drink small amounts of clear fluid frequently today to stay hydrated. Maintain a clear liquid diet today. You may advance her diet slowly tomorrow to bland foods as tolerated. Please take potassium as prescribed. Abdominal x-ray was interpreted by radiology as follows:1. Mild ileus pattern in the right lower quadrant of the abdomen. 2. Impressive bilateral symmetrical extensive renal calcifications most probably consistent with medullary sponge kidney disease. No obvious calculi seen along the course of the ureters. Please be sure to follow this up with your doctor. Additional outpatient diagnostic testing may be necessary. Return to the ER immediately for any worsening or new concerning symptoms. Referrals: Myron Worrell DO [Primary Care Provider] - HPI General Mode of arrival: ambulatory . Date/Time Provider Initiated Documentation: 10/04/24 08:43 . Limitations to Documentation: no limitations . Information obtained by: patient . HPI Narrative: HISTORY OF PRESENT ILLNESS 29-year-old female with vomiting for 5 days, unable to keep fluids down, and missed potassium supplements. History of type 2 diabetes and stage 3 chronic kidney disease. Accompanied by . Severe vomiting for 5 days, preventing potassium supplement intake. Reports weakness, possibly due to illness or hypokalemia. Minimal fluid intake (2 sips of water). No treatment attempted for nausea; Pepto-Bismol ineffective previously. Not monitoring blood glucose or administering weekly insulin dose. Similar episode a year ago. Constant abdominal pain, described as knot-like. No fevers or rashes. Monthly basic metabolic panel for potassium. Uncertain cause of hypokalemia. No smoking since illness onset. No drug use. Occasional alcohol consumption. Related Data Home Medications ?Medication ?Instructions ?Recorded ?Confirmed potassium chloride 20 mEq oral 40 meq PO TID hypokalemia #30 ea 07/06/22 10/04/24 packet (Klor-Con) flash glucose sensor (FreeStyle #2 ea 10/22/23 06/29/24 Iraida 2 Sensor kit) sodium bicarbonate 650 mg tablet 650 mg PO QID 11/02/23 10/04/24 semaglutide 1 mg/dose (4 mg/3 mL) 1 mg (0.75 mL) subcut QWEEK #3 mL 03/01/24 10/04/24 subcutaneous pen injector ondansetron 4 mg disintegrating 4 mg PO Q8H PRN #10 tabs 10/04/24 tablet Previous Rx's ?Medication ?Instructions ?Recorded potassium chloride 20 mEq oral 40 meq PO TID hypokalemia #30 ea 07/06/22 packet (Klor-Con) flash glucose sensor (FreeStyle #2 ea 10/22/23 Iraida 2 Sensor kit) semaglutide 1 mg/dose (4 mg/3 mL) 1 mg (0.75 mL) subcut QWEEK #3 mL 03/01/24 subcutaneous pen injector ondansetron 4 mg disintegrating 4 mg PO Q8H PRN #10 tabs 10/04/24 tablet Allergies Allergy/AdvReac Type Severity Reaction Status Date / Time No Known Allergies Allergy Verified 10/04/24 08:44 General Stated Complaint: Nausea/Vomit/Diar BHASKAR: 3 Review of Systems All systems reviewed & are unremarkable except as noted in HPI and below Constitutional Constitutional: Reports weakness Gastrointestinal Gastrointestinal: Reports as per HPI, Reports nausea and Reports vomiting Neurologic Neurologic: Reports weakness Exam Narrative Exam Narrative: PHYSICAL EXAM General Appearance: Appears fatigued. Vital signs: Within normal limits. HEENT: Oral exam performed. Dry mucous membranes. Respiratory: Lung auscultation performed. Clear to auscultation bilaterally. Cardiovascular: Heart exam performed. Regular rate and rhythm. Gastrointestinal: Abdominal exam performed. Nontender nondistended. Skin: Poor skin turgor. Neurological: Normal. Course Vital Signs Vital signs: Vital Signs Temperature 36.6 C 10/04/24 08:41 Pulse 90 10/04/24 08:41 Respiratory Rate 16 10/04/24 08:41 Blood Pressure 110/84 10/04/24 08:41 Pulse Oximetry 98 10/04/24 08:41 Temperature 36.6 C 10/04/24 08:41 Temperature Source Oral 10/04/24 08:41 Pulse 90 10/04/24 08:41 Respiratory Rate 16 10/04/24 08:41 Blood Pressure 110/84 10/04/24 08:41 Pulse Oximetry 98 10/04/24 08:41 Oxygen Delivery Method Room Air 10/04/24 08:41 Oxygen Flow Rate 0 10/04/24 08:41 Lab/Test Results Lab/Test Results: Laboratory Tests Range/Units 10/04/24 10/04/24 08:55 14:23 WBC (4.4-10.8) 10^3/uL 14.32 H RBC (3.93-5.22) 10^6/uL 6.47 H Hgb (11.2-15.7) g/dL 18.5 H Hct (36.0-46.0) % 54.5 H MCV (80-95) fL 84 MCH (27.0-33.0) pg 28.6 MCHC (32.0-36.0) % 33.9 RDW (11.7-14.6) % 14.6 Plt Count (130-400) 10^3/uL 316 MPV (8.0-11.0) fL 9.7 Immature Gran % % 0.4 Neutrophils % % 70.6 Lymphocytes % % 17.7 Monocytes % % 9.6 Eosinophils % % 1.1 Basophils % % 0.6 Nucleated RBC % (0.0-0.3) % 0.0 Absolute Neutrophils (1.2-6.7) 10^3/uL 10.11 H Absolute Lymphocytes (1.2-3.4) 10^3/uL 2.53 Absolute Monocytes (0.1-0.8) 10^3/uL 1.37 H Absolute Eosinophils (0.0-0.7) 10^3/uL 0.16 Absolute Basophils (0.0-0.2) 10^3/uL 0.09 RBC Morphology Normal VBG pH (7.31-7.41) 7.27 L VBG pCO2 (41-51) mmHg 40 L VBG pO2 mmHg 19 VBG HCO3 (23-28) mmol/L 18 L VBG Total CO2 (24-29) mmol/L 16 L VBG O2 Saturation % 32 VBG Base Excess (-2-3) mmol/L -9 L Sodium (136-145) mmol/L 138 139 Potassium (3.5-5.1) mmol/L 2.4 L* 2.8 L* Chloride (98-107) mmol/L 106 108 H Carbon Dioxide (21.0-32.0) mmol/L 20.4 L 19.5 L Anion Gap (3-11) mmol/L 11.6 H 11.5 H BUN (7-18) mg/dL 17 17 Creatinine (0.55-1.02) mg/dL 1.8 H 1.5 H Est GFR (CKD-EPI 2020) (mL/min/1.73m2) 38.39 47.78 Glucose (74-106) mg/dL 159 H 110 H Calcium (8.5-10.1) mg/dL 9.2 8.3 L Magnesium (1.8-2.4) mg/dL 2.6 H Total Bilirubin (0.2-1.0) mg/dL 0.7 AST (15-37) U/L 12 L ALT (14-59) U/L 19 Alkaline Phosphatase (46-116) U/L 106 Total Protein (6.4-8.2) g/dL 8.5 H Albumin (3.4-5.0) g/dL 4.1 Serum HCG, Qual Negative Medical Decision Making ASSESSMENT AND PLAN Initial Assessment: Jesica Lewis is a 29-year-old female with vomiting for the past 5 days, unable to keep fluids down, and has not taken potassium supplements over the past week. She has a history of type 2 diabetes and stage III chronic kidney disease. ED Course: - i.v. fluids started with LR full bolus, 1 liter - EKG performed and reviewed by me: sinus rhythm 76 bpm, nondiagnostic - Labs reviewed: creatinine increased to 1.8 from baseline 1.4, potassium low at 2.4, leukocytosis at 14, VBG consistent with mild metabolic acidosis, pH 7.27 - Administered Zofran i.v. for nausea - Abdominal x-ray series ordered to assess for obstruction - Potassium improving after IV supplementation. She did receive additional oral potassium just before blood draw. Patient reassessed and feeling much better. Patient feeling much better and tolerating p.o. fluid. Discussed potential treatment options including admission versus discharge. Patient elects for discharge as part of shared decision making process. - Repeat EKG was reviewed and interpreted by me: Sinus rhythm 74 bpm, normal intervals. - All results discussed with the patient. Final Assessment: Patient's creatinine has increased, indicating acute on chronic kidney disease. Potassium initially critically low, necessitating treatment for hypokalemia. Potassium improved and trending up on repeat. Nausea and vomiting significantly improved after antiemetic., requiring antiemetic treatment and further diagnostic imaging. Clinical Impression: - Acute on chronic kidney disease - Hypokalemia - Nausea and vomiting Disposition: - Plan for discharge. Will prescribe antiemetic. Patient to continue hypokalemia. MDM Components Evaluation: - Number of Differential Diagnoses or Management Options: Acute on chronic kidney disease, hypokalemia, nausea and vomiting - Amount and Complexity of Data Reviewed: EKG, labs (creatinine, potassium, leukocytosis, VBG), abdominal x-ray series - Risk of Complication and Morbidity or Mortality: High risk due to electrolyte abnormalities and underlying chronic kidney disease This document was written with the assistance of JERSON Huston. The patient consented to its use. Quality:SDOH Health Related Social Needs: No Data to Display PFSH All Active Problems (Updated 10/04/24 @ 15:01 by Malcom Shaffer MD) Renal calcification (Acute) HANNY (acute kidney injury) (Acute) Nausea & vomiting (Acute) Hypovolemia (Acute) Hypokalemia (Acute) Leukocytosis (Acute) Hypophosphatemia (Acute ~10/07/23) Type 2 diabetes mellitus without complications (Acute) w/out long-term current use of insulin Stage 3a chronic kidney disease (CKD) (Acute 10/07/23) Depression (Chronic) Rh negative state in antepartum period (Acute) Distal renal tubular acidosis (Chronic) Hypokalemia due to loss of potassium (Acute) Amenorrhea (Acute) Migraine with aura (Acute) GERD (gastroesophageal reflux disease) (Chronic) Other specified diabetes mellitus with hyperglycemia (Acute) 09/12/21 [facility] [place] Patient desires (Acute ~03/2022) Acute hypokalemia (Acute) DB positive (Acute) Blunt chest trauma (Acute) Acidosis, renal tubular (Acute) Constipation, unspecified (Acute) (Acute) Spotting affecting in first trimester (Acute) Medical History Chronic kidney disease, stage 2 (mild) 07/06/2023 - GFR 60-89 mL/min Psoriasis Diabetes mellitus Type 2 Neck abscess Cellulitis of neck Hx of ectopic Surgical History Hx of dilation and curettage H/O laparoscopy 2019 ectopic , failed MTX Previous section 11/01/19 for breech Family History Father Well adult Mother Well adult Maternal Grandmother Thyroid disease Social History Smoking/Tobacco Use Status: Former Tobacco Use Quit Date: 06/21/19 Smoking risk assessment performed?: Yes Alcohol Intake: never Drug use: Never Substance use type: does not use Adopted: No Caregiver/Support person: No Foster care: No Household members: spouse and children Housing: house Number of Children: 1 Communication Needs: None Education Level: high school Do you need help understanding health information?: Often Pets and animals: Yes Pets and animals: dog(s) Sexually active: Yes Do you think of yourself as: straight/heterosexual Current gender identity: female What is your relationship status?: living with partner How often do you talk on the phone with friends or family?: three or more times per week How often do you get together with friends or relatives?: once per week Do you belong to any clubs or organized social groups?: no Panel score (0-1 are the most socially isolated patients): 2 Raquel/Confucianist: Episcopal Seatbelt use: sometimes Do you feel safe at home: Yes Do you feel safe in your relationship?: Yes History History 3 Para Hx # Term Pregnancies 1 Multiple births Hx # Pregnancies Ectopic pregnancies 1 AB induced Hx Number of Living Children 1 AB spontaneous Past Pregnancies Del. Date GA/Weeks # Preg Succ Route Wgt Sex Labor Lgth Anesth esia Location Prov Complic 06/21/18 11/01/19 Male Delivery Date: 06/21/18 Last Updated by: Yuko Hatfield MD Ectopic . Laparoscopy s/p failed MTX. Exact date unknown - sometime early 2018 Delivery Date: 11/01/19 Last Updated by: Marie Norwood CNM Breech presentation, Vanishing twin, gestational diabetes.
--- NOTE | 2024-10-04 15:00 | RT.EKG_ITS ---
APPROVED REPORT Exam: Resting ECG Reason for Exam: prolonged Qtc, hypokalemia Patient Location: E HR:74 bpm ECG Measurements Heart Rate 74 AXIS NE 190 P 50 QRSd 81 QRS 64 QT 397 T 21 QTc 441 Conclusion Sinus rhythm...normal P axis, V-rate 60- 99
== END 2024-10-04 15:19 | disposition home or self-care (01) ==
PROVIDERS: Emergency Provider Student in an Organized Health Care Education/Training Program; PCP Family Medicine
DX: N28.89 Other specified disorders of kidney and ureter (principal); N17.9 Acute kidney failure, unspecified; R11.2 Nausea with vomiting, unspecified
CPT/HCPCS: 36415; 36416; 80048; 80053; 82805; 82962; 93005; 96361; 96374; 99284; 74019; 83735; 84703; 85025; 93010; J2405; J3480

== ENCOUNTER 2024-11-10 12:15 | Emergency (ER) | payer MEDICAID, SELFPAY ==
[2024-11-10] VITALS (42 sets, daily range): BP systolic 77–129; BP diastolic 35–86; PULSE 105–141; RESP 5–36; TEMP 36.6–38.6; O2SAT 96–100
--- NOTE | 2024-11-10 13:52 | W.ED.GENAD ---
Discharge Plan Discharge Details Chief Complaint: GenMedical Primary Care Provider: Myron Worrell ED Provider: Noni Bui Home Meds and New Rx's Prescriptions: No Action potassium chloride [Klor-Con] 20 mEq packet 40 meq PO TID Qty: 30 0RF Rx Instructions: Take one packet mixed with 8 oz liquid three times daily ondansetron 4 mg tablet,disintegrating 4 mg PO Q8H PRN (Reason: nausea and vomiting) Qty: 30 0RF (DME) FreeStyle Iraida 2 Sensor Kit See Rx Instructions .ROUTE .MEDSUPPLY Qty: 2 11RF Rx Instructions: As directed, E11.65, on multiple daily doses of insulin, A1C goal less than 6.5% sodium bicarbonate 650 mg tablet 650 mg PO QID Rx Instructions: per ov dated 10/07/23 cc semaglutide 1 mg/dose (4 mg/3 mL) pen injector 1 mg subcut QWEEK Qty: 3 6RF HPI General Mode of arrival: ambulatory. Date/Time Provider Initiated Documentation: 11/10/24 12:21. Limitations to Documentation: no limitations. Information obtained by: patient, RN notes reviewed and old records reviewed. HPI Narrative: 29-year-old female presents to the ER from her PCP office for 2 weeks of cough and cold symptoms, coughing up white thick mucus, complains of headache and neck pain which she reports to from her severe coughing. She reports taking Tylenol ampm and Mucinex. She does have scattered wheezes throughout auscultation bilaterally. Does have a history of kidney disease stage II, history of ectopic , D&C and previous . She did have a negative rapid COVID and flu swab prior to arrival. Related Data Home Medications ?Medication ?Instructions ?Recorded ?Confirmed potassium chloride 20 mEq oral 40 meq PO TID hypokalemia #30 ea 07/06/22 11/10/24 packet (Klor-Con) flash glucose sensor (FreeStyle #2 ea 10/22/23 11/10/24 Iraida 2 Sensor kit) sodium bicarbonate 650 mg tablet 650 mg PO QID 11/02/23 11/10/24 semaglutide 1 mg/dose (4 mg/3 mL) 1 mg (0.75 mL) subcut QWEEK #3 mL 04/28/25 05/23/25 subcutaneous pen injector ondansetron 4 mg disintegrating 4 mg PO Q8H PRN nausea and 10/20/24 11/10/24 tablet vomiting #30 tabs Previous Rx's ?Medication ?Instructions ?Recorded potassium chloride 20 mEq oral 40 meq PO TID hypokalemia #30 ea 07/06/22 packet (Klor-Con) flash glucose sensor (FreeStyle #2 ea 10/22/23 Iraida 2 Sensor kit) semaglutide 1 mg/dose (4 mg/3 mL) 1 mg (0.75 mL) subcut QWEEK #3 mL 10/16/24 subcutaneous pen injector ondansetron 4 mg disintegrating 4 mg PO Q8H PRN nausea and 10/20/24 tablet vomiting #30 tabs Allergies Allergy/AdvReac Type Severity Reaction Status Date / Time No Known Allergies Allergy Verified 11/10/24 12:22 General Stated Complaint: GenMedical BHASKAR: 3 Review of Systems All systems reviewed & are unremarkable except as noted in HPI and below Constitutional Constitutional: Reports body ache(s), Reports daytime sleepiness, Reports fatigue, Reports fever(s), Reports headache(s) and Reports lethargy ENT Ears, Nose, Mouth, and Throat: Reports headache(s) and Reports neck pain Respiratory Respiratory: Reports as per HPI, Reports cough, Denies hemoptysis, Reports excessive phlegm production, Reports pain with cough and Reports wheezing Musculoskeletal Musculoskeletal: Reports back pain, Reports myalgias, Reports neck pain and Denies numbness Neurologic Neurologic: Reports as per HPI, Denies confusion, Reports headache(s), Denies localized weakness and Denies numbness Psychiatric Psychiatric: Denies confusion Endocrine Endocrine: Reports fatigue Allergic/Immunologic Allergic/Immunologic: Reports wheezing Exam Narrative Exam Narrative: Constitutional: Alert and oriented x3. Appears stated age. Normal body habitus. Head: Normocephalic, no trauma. Eyes: Pupils PERRL, Red reflex noted, EOM's intact. Eyelids symmetrical without lesions, discharge, or swelling. ENT: Bilateral TM's WNL, External ear normal to inspection, no mastoid TTP, swelling, or erythema, Nasal turbinates WNL, no nasal discharge. Normal dentition, Posterior pharynx WNL, no exudate. Chest: RRR, Normal S1, S2, distal pulses intact. Resp: Scattered expiratory wheezes throughout all lopez. Abdomen: Soft, non-distended, Normoactive bowel sounds all 4 quads. Musculoskeletal: Normal gait, Moves all 4 extremities without difficulty. Does have some tenderness to the paraspinous area of her neck, the muscles do feel tight, negative nuchal rigidity negative Kernig's and Brudzinski's sign. Skin: No suspicious rashes or lesions. Capillary refill less than 2 sec. Neurologic: Cranial nerves II-XII intact. Alert and oriented x 3. Motor: No deficits noted. Sensory: Intact bilaterally all 4 extremities. Hematologic/Lymphatic: No ecchymosis, no lymphadenopathy. Course Vital Signs Vital signs: Vital Signs Temperature 36.6 C 11/10/24 12:16 Pulse 116 H 11/10/24 12:16 Respiratory Rate 20 11/10/24 12:16 Blood Pressure 114/74 11/10/24 12:16 Pulse Oximetry 98 11/10/24 12:16 Temperature 36.6 C 11/10/24 12:24 Temperature Source Oral 11/10/24 12:24 Pulse 127 H 11/10/24 13:46 Respiratory Rate 24 11/10/24 13:46 Blood Pressure 123/86 11/10/24 13:46 Blood Pressure Mean 98 11/10/24 13:46 Blood Pressure Position Sitting 11/10/24 12:24 Pulse Oximetry 100 11/10/24 13:46 Oxygen Delivery Method Room Air 11/10/24 13:46 Oxygen Flow Rate 0 11/10/24 13:46 Pain Level 7 11/10/24 13:48 Medical Decision Making 29-year-old female presents to the ER from her PCP office for 2 weeks of cough and cold symptoms, coughing up white thick mucus, complains of headache and neck pain which she reports to from her severe coughing. She reports taking Tylenol ampm and Mucinex. She does have scattered wheezes throughout auscultation bilaterally. Does have a history of kidney disease stage II, history of ectopic , D&C and previous . She did have a negative rapid COVID and flu swab prior to arrival. Chest x-ray ordered, PCR Fluvid swab, DuoNeb, Tessalon Perles and Flexeril. Differential diagnosis includes but not limited to pneumonia, viral upper respiratory infection, muscle spasm, meningitis. Patient does not appear toxic. Will reevaluate after the above measures. On patient reevaluation she reports she feels about the same that the neck stiffness is a little bit better. She is tachycardic with a heart rate up to 130. I did discuss the risks and benefits of lumbar puncture. She reports that when she was 15 she did have a lumbar puncture and was diagnosed with meningitis but she does not know if it was bacterial or viral and she states that she was discharged home. She does want to rule out that this is meningitis. I did speak with Dr. Hartman who is the ER attending On shift with me regarding this. Discussed risks of LP such as introducing infection, spinal headache, unsuccessful procedure, possible need for transfer and IR. CBC CMP ordered and a liter of normal saline as patient is tachycardic, temperature at this time is 99. Care is to be handed off to oncoming provider ELIZABETH Cleary pending lab results and possible lumbar puncture. I did discuss patient case in details with her she is at the bedside for evaluation at this time. Medical Records Medical records reviewed: Yes I reviewed the patient's medical records. Quality:SDOH Health Related Social Needs: No Data to Display PFSH All Active Problems URI (upper respiratory infection) (Acute) Meningismus (Acute) Leukocytosis (Acute) Hypophosphatemia (Acute ~10/07/23) Type 2 diabetes mellitus without complications (Acute) w/out long-term current use of insulin Stage 3a chronic kidney disease (CKD) (Acute 10/07/23) Depression (Chronic) Rh negative state in antepartum period (Acute) Distal renal tubular acidosis (Chronic) Hypokalemia due to loss of potassium (Acute) Amenorrhea (Acute) Migraine with aura (Acute) GERD (gastroesophageal reflux disease) (Chronic) Other specified diabetes mellitus with hyperglycemia (Acute) 09/12/21 [facility] [place] Patient desires (Acute ~03/2022) Acute hypokalemia (Acute) DB positive (Acute) Blunt chest trauma (Acute) Acidosis, renal tubular (Acute) Constipation, unspecified (Acute) (Acute) Spotting affecting in first trimester (Acute) Medical History Chronic kidney disease, stage 2 (mild) 07/06/2023 - GFR 60-89 mL/min Psoriasis Diabetes mellitus Type 2 Neck abscess Cellulitis of neck Hx of ectopic Surgical History Hx of dilation and curettage H/O laparoscopy 2018 ectopic , failed MTX Previous section 11/01/19 for breech Family History Father Well adult Mother Well adult Maternal Grandmother Thyroid disease Social History Smoking/Tobacco Use Status: Former Tobacco Use Quit Date: 06/21/19 Smoking risk assessment performed?: Yes Alcohol Intake: never Drug use: Never Substance use type: does not use Adopted: No Caregiver/Support person: No Foster care: No Household members: spouse and children Housing: house Number of Children: 1 Communication Needs: None Education Level: high school Do you need help understanding health information?: Often Pets and animals: Yes Pets and animals: dog(s) Sexually active: Yes Do you think of yourself as: straight/heterosexual Current gender identity: female What is your relationship status?: living with partner How often do you talk on the phone with friends or family?: three or more times per week How often do you get together with friends or relatives?: once per week Do you belong to any clubs or organized social groups?: no Panel score (0-1 are the most socially isolated patients): 2 Raquel/Moravian: Gnosticist Seatbelt use: sometimes Do you feel safe at home: Yes Do you feel safe in your relationship?: Yes History History 3 Para Hx # Term Pregnancies 1 Multiple births Hx # Pregnancies Ectopic pregnancies 1 AB induced Hx Number of Living Children 1 AB spontaneous Past Pregnancies Del. Date GA/Weeks # Preg Succ Route Wgt Sex Labor Lgth Anesthesia Location Prov Complic 06/21/18 11/01/19 Male Delivery Date: 06/21/18 Last Updated by: Yuko Hatfield MD Ectopic . Laparoscopy s/p failed MTX. Exact date unknown - sometime early 2018 Delivery Date: 11/01/19 Last Updated by: Marie Norwood CNM Breech presentation, Vanishing twin, gestational diabetes.
[2024-11-10] MEDS: Benzonatate 100 MG CAP PO (14:18)
[2024-11-10] MEDS: Albuterol/Ipratropium 3 ML UPD VIAL UPD (14:18)
[2024-11-10] MEDS: Cyclobenzaprine 10 MG TAB PO (14:19)
--- NOTE | 2024-11-10 14:54 | DI.RAD_ITS ---
Exam(s) XR CHEST 2V PA LATERAL EXAM: XR CHEST 2V PA LATERAL CLINICAL HISTORY: URI TECHNIQUE: 2D digital imaging was performed. Two views. COMPARISON: CR XR CHEST 2V PA LATERAL from 06/02/2022 FINDINGS: HEART: Normal size. Aorta: Not dilated. PULMONARY VASCULATURE: Normal. MEDIASTINUM: Unremarkable. LUNGS: Clear. PLEURAL SPACE: No pleural effusion or pneumothorax. BONE:Unremarkable for age. SOFT TISSUES: Unremarkable. IMPRESSION: No acute abnormality. DATA REPOSITORY: RADIATION DOSE DELIVERED:
[2024-11-10] MEDS: Normal Saline 1,000 ML 1000 ML IV (15:51)
[2024-11-10 15:53] LABS: HCT 49.6 % (36.0-46.0); HGB 17.2 g/dL (11.2-15.7); MCH 29.1 pg (27.0-33.0); MCHC 34.7 % (32.0-36.0); MCV 84 fL (80-95); MPV 9.1 fL (8.0-11.0); RBC 5.92 10^6/uL (3.93-5.22); RDW 15.4 % (11.7-14.6); RDW-SD 46.4 fL; WBC 24.66 10^3/uL (4.4-10.8)
[2024-11-10 16:00] LABS: COVID-19 PCR Negative (Negative); Influenza A PCR Negative (Negative); Influenza B PCR Negative (Negative); RSV PCR Negative (Negative)
[2024-11-10 16:02] LABS: Source Nasopharynx
[2024-11-10 16:09] LABS: Absolute Lymphocyte Count 2.47 10^3/uL (1.2-3.4); Absolute Monocyte Count 1.23 10^3/uL (0.1-0.8); Absolute Neutrophil Count 20.96 10^3/uL (1.2-6.7); Atypical Lymphocytes % 1 %; Bands % 2 %; Diff Comment Manual Differential; Platelet Count 313 10^3/uL (130-400); RBC Morphology Normal
--- NOTE | 2024-11-10 16:15 | RT.EKG_ITS ---
APPROVED REPORT Exam: Resting ECG Reason for Exam: hypokalemia Patient Location: E HR:113 bpm ECG Measurements Heart Rate 113 AXIS VT 168 P 71 QRSd 86 QRS 75 QT 318 T 38 QTc 436 Conclusion Sinus tachycardia...rate> 99 No Occlusion TX
[2024-11-10 16:17] LABS: ALT 20 U/L (14-59); AST 10 U/L (15-37); Albumin 3.9 g/dL (3.4-5.0); Alkaline Phosphatase 131 U/L (46-116); Anion Gap 15.1 mmol/L (3-11); BUN 17 mg/dL (7-18); Bilirubin, Total 0.7 mg/dL (0.2-1.0); CO2 17.9 mmol/L (21.0-32.0); Calcium 9.7 mg/dL (8.5-10.1); Chloride 103 mmol/L (98-107); Estimated GFR 33.83 (mL/min/1.73m2); Glucose 176 mg/dL (74-106); Sodium 136 mmol/L (136-145); Total Protein 8.9 g/dL (6.4-8.2)
[2024-11-10 16:22] LABS: Potassium 2.1 mmol/L (3.5-5.1)
[2024-11-10 16:42] LABS: Lab Add On Test DONE
[2024-11-10] MEDS: methylPREDNISolone SUCC 125 MG VIAL IVP (16:50)
[2024-11-10] MEDS: Prochlorperazine 10 MG/2 ML VIAL 5 MG IVP (16:50)
[2024-11-10 16:53] LABS: Magnesium 1.9 mg/dL (1.8-2.4)
[2024-11-10] MEDS: Lactated Ringers 1,000 ML 1000 ML IV (17:01)
[2024-11-10] MEDS: Albuterol 2.5 MG/3 ML INH SOLN VIAL UPD (17:01)
[2024-11-10] MEDS: Potassium Chloride 20 MEQ TABCR 40 MEQ PO (17:03)
[2024-11-10] MEDS: ACETAMINOPHEN 500 MG/50 ML BAG 200 MG IVPB (17:03)
[2024-11-10] MEDS: POTASSIUM CHLORIDE 20 MEQ/100 ML BAG 50 MEQ IV_INF (17:04)
[2024-11-10 17:48] LABS: Lactate 1.1 mmol/L (<or=2.0)
[2024-11-10] MEDS: cefTRIAXone 2 GM/50 ML BAG IVPB (17:51)
[2024-11-10 18:24] LABS: Bilirubin Negative (Negative); Blood Trace-intact (Negative); Clarity Clear (Clear); Glucose Negative (Negative); Ketones Negative (Negative); Leukocyte Esterase Small (Negative); Nitrite Negative (Negative); Urobilinogen 0.2 mg/dL (Up to 0.2)
[2024-11-10 19:01] LABS: Bacteria Rare HPF (Negative); C & S Indicated? No; Casts Negative LPF (Negative); Crystals Negative HPF (Negative); Epithelial Cells Rare HPF (Negative); Mucus Negative (Negative); WBC Negative HPF (0-5)
[2024-11-10] MEDS: Acetaminophen 500 MG TAB PO (19:40)
[2024-11-10] MEDS: Albuterol HFA 8 GM 60 PUFF INH IH (19:41)
--- NOTE | 2024-11-10 20:07 | NUR.NOTE ---
Extensive education was done with patient about leaving AMA. Patient is receptive to education but state she is still leaving. Patient was advised to return to the hospital for worsening symptoms
--- NOTE | 2024-11-11 10:28 | NUR.NOTE ---
Accessed chart to reconcile orders for EKG with EKG?s in [facility]. Duplicate order cancelled. Nursing Note:
--- NOTE | 2024-11-11 10:29 | NUR.NOTE ---
Accessed chart to reconcile orders for EKG with EKG?s in [facility]. Duplicate order cancelled. Nursing Note:
[2024-11-13 09:45] LABS: Lyme Ab w Rflx to Lyme Confirm Negative (Negative)
[2024-11-14 20:13] LABS: Anaplasma phagocytophilum Negative (Negative); B. miyamotoi PCR Negative (Negative); Babesia divergens/MO-1 Negative (Negative); Babesia duncani Negative (Negative); Babesia microti Negative (Negative); Ehrlichia chaffeensis Negative (Negative); Ehrlichia ewingii/canis Negative (Negative); Ehrlichia muris eauclairensis Negative (Negative)
== END 2024-11-10 19:11 | disposition left against medical advice (07) ==
PROVIDERS: Registered Nurse Emergency; Emergency Provider Physician Assistant; PCP Family Medicine
DX: D72.829 Elevated white blood cell count, unspecified (principal); J18.9 Pneumonia, unspecified organism; E87.6 Hypokalemia; E87.1 Hypo-osmolality and hyponatremia; N17.9 Acute kidney failure, unspecified; N18.31 Chronic kidney disease, stage 3a; E11.9 Type 2 diabetes mellitus without complications; Z79.85 Long-term (current) use of injectable non-insulin antidiabetic drugs; Z53.29 Procedure and treatment not carried out because of patient's decision for other reasons
CPT/HCPCS: 36415; 80053; 81025; 87040; 87637; 87798; 93005; 94640; 96361; 96365; 96366; 96367; 96375; 99285; 71046; 81003; 81015; 83605; 83735; 85025; 86618; 93010; J0131; J0696; J0780; J2919; J3480; J7613; J7620

== ENCOUNTER 2024-12-25 12:47 | Outpatient (CLI) | payer MEDICAID, SELFPAY ==
[2024-12-25 10:20] LABS: Hemoglobin A1C 5.7 % (<5.7)
[2024-12-25 10:27] LABS: HCG Quant, Pregnancy 744 mIU/mL (1-3)
== END 2024-12-25 12:48 | disposition home or self-care (01) ==
LOC: LBO 12:52
PROVIDERS: PCP Family Medicine; Visit Provider Advanced Practice Midwife
DX: Z34.91 Encounter for supervision of normal pregnancy, unspecified, first trimester (principal)
CPT/HCPCS: 36415; 83036; 84702

== ENCOUNTER 2024-12-27 03:44 | Outpatient (CLI) | payer MEDICAID, SELFPAY ==
[2024-12-27 14:39] LABS: HCG Quant, Pregnancy 1362 mIU/mL (1-3)
== END 2024-12-27 03:45 | disposition home or self-care (01) ==
LOC: LBO 03:44
PROVIDERS: PCP Family Medicine; Visit Provider Advanced Practice Midwife
DX: Z87.59 Personal history of other complications of pregnancy, childbirth and the puerperium (principal); Z34.91 Encounter for supervision of normal pregnancy, unspecified, first trimester
CPT/HCPCS: 36415; 84702

== ENCOUNTER 2024-12-29 01:02 | Outpatient (CLI) | payer MEDICAID, SELFPAY ==
[2024-12-29 10:01] LABS: HCG Quant, Pregnancy 3927 mIU/mL (1-3)
== END 2024-12-29 01:03 | disposition home or self-care (01) ==
LOC: LBO 01:02
PROVIDERS: PCP Family Medicine; Visit Provider Advanced Practice Midwife
DX: Z87.59 Personal history of other complications of pregnancy, childbirth and the puerperium (principal); Z34.91 Encounter for supervision of normal pregnancy, unspecified, first trimester
CPT/HCPCS: 36415; 84702

== ENCOUNTER 2025-01-08 06:09 | Emergency (ER) | payer MEDICAID, SELFPAY ==
[2025-01-08 06:13] VITALS: BP 115/81; PULSE 70; RESP 16; TEMP 36.6; O2SAT 98
--- NOTE | 2025-01-08 06:46 | W.ED.GENAD ---
Discharge Plan Disposition Patient Disposition: Home Condition: Good Discharge Details Clinical Impression: Threatened miscarriage Primary Care Provider: Myron Worrell ED Provider: Deonte Law Home Meds and New Rx's Prescriptions: No Action potassium chloride [Klor-Con] 20 mEq packet 40 meq PO TID Qty: 30 0RF Rx Instructions: Take one packet mixed with 8 oz liquid three times daily albuterol sulfate 90 mcg/actuation HFA aerosol inhaler 2 puff inhalation Q6H PRN (Reason: shortness of breath or wheezing) Qty: 8.5 3RF PNV,calcium 75-cczz-tyljx acid 27 mg iron- 1 mg tablet 1 tab PO DAILY Qty: 90 4RF Rx Instructions: give with food (meal/snack) (DME) [employer] Orders Iraida 2 Sensor Kit See Rx Instructions .ROUTE .MEDSUPPLY Qty: 2 11RF Rx Instructions: As directed, E11.65, on multiple daily doses of insulin, A1C goal less than 6.5% sodium bicarbonate 650 mg tablet 650 mg PO QID Rx Instructions: per ov dated 10/07/23 cc Discharge Instructions Instructions: Bleeding in Early ED Additional Instructions: At this time there is concern that you may be having signs that could lead to a miscarriage. Please avoid any intercourse, and continue to have pelvic rest with no significant activity for the time being. Please follow-up closely with your obstetrics florist. If you notice any worsening of your symptoms, or any new symptoms such as vomiting, diarrhea, fever, chills, shortness of breath, chest pain, numbness, weakness, or fainting , please return immediately to the emergency department for reevaluation. Please follow up with your primary care provider as soon as possible for reassessment and reevaluation. As always, it was a pleasure participating in your medical care today. Referrals: Olga Nails DO [OSTEOPATHIC DOCTOR, Obstetrics] Myron Worrell DO [Primary Care Provider, Medicine] [facility] General Date/Time Provider Initiated Documentation: 01/08/25 06:23. HPI Narrative: This is a pleasant 29-year-old female who is a G4, P1 with a history of diabetes mellitus type 2, renal tubular acidosis, an ectopic , twins with a miscarriage, and miscarriage in general, who is be negative for her blood type, who presents today for evaluation of vaginal bleeding. She is currently between 6 and 8 weeks . Last night she developed some mild cramping, and then this morning at around 4 AM she noticed some bright red blood when she was wiping. She denies any significant cramping at this time. She denies fever or chills. She denies seeing any large clots. Last episode of intercourse was 5 days ago. And there was no bleeding or pain at that time. No other complaints at this time. No other modifying factors. Patient has received RhoGAM in the past. Related Data Home Medications ?Medication ?Instructions ?Recorded ?Confirmed potassium chloride 20 mEq oral 40 meq PO TID hypokalemia #30 ea 07/06/22 01/08/25 packet (Klor-Con) flash glucose sensor (FreeStyle #2 ea 10/22/23 12/29/24 Iraida 2 Sensor kit) sodium bicarbonate 650 mg tablet 650 mg PO QID 11/02/23 01/08/25 albuterol sulfate 90 mcg/actuation 2 puff inhalation Q6H PRN 11/17/24 01/08/25 aerosol inhaler shortness of breath or wheezing #8.5 grams vitamins with calcium 1 tab PO DAILY #90 tabs 12/25/24 01/08/25 no.72-iron 27 mg-folic acid 1 mg tablet Previous Rx's ?Medication ?Instructions ?Recorded potassium chloride 20 mEq oral 40 meq PO TID hypokalemia #30 ea 07/06/22 packet (Klor-Con) flash glucose sensor (FreeStyle #2 ea 10/22/23 Iraida 2 Sensor kit) albuterol sulfate 90 mcg/actuation 2 puff inhalation Q6H PRN 11/17/24 aerosol inhaler shortness of breath or wheezing #8.5 grams vitamins with calcium 1 tab PO DAILY #90 tabs 12/25/24 no.72-iron 27 mg-folic acid 1 mg tablet Allergies Allergy/AdvReac Type Severity Reaction Status Date / Time No Known Allergies Allergy Verified 01/08/25 06:13 General Stated Complaint: CUSTODIAL OFFICER BHASKAR: 3 Exam Narrative Exam Narrative: 1.Const: Well-nourished, Well-developed, appearing stated age 2.Eyes: PERRL, no conjunctival injection, and symmetrical lids. 3.ENT: Atraumatic external nose and ears. Moist MM. Neck: Symmetric, trachea midline, No thyromegaly. 4.CVS: +S1/S2, Peripheral pulses 2+ and equal in all extremities. Brisk capillary refill in all extremities. 5.RESP: Unlabored respiratory effort. Clear to auscultation bilaterally. No wheezes rales or rhonchi 6.GI: Soft, Nontender/Nondistended, No hepatosplenomegaly. No guarding or rebound. Vaginal exam was performed with female nurse Ambreen at bedside. Patient demonstrates a closed cervix. Small amount of a pinpoint of pink blood noted on glove, but no large hemorrhage, or clots or significant bright red blood. 7.MSK: Normocephalic/Atraumatic, Extremities w/o deformity or ttp No cyanosis or clubbing, Normal movement of all extremities 8.Skin: Warm, Dry. No rashes or lesions. 9.Neuro: conference planning manager II-XII grossly intact. Sensation grossly intact, no focal neurologic deficits. 10.Psych: (AAO) x3. Appropriate mood and affect Course Vital Signs Vital signs: Vital Signs Temperature 36.6 C 01/08/25 06:13 Pulse 70 01/08/25 06:13 Respiratory Rate 16 01/08/25 06:13 Blood Pressure 115/81 01/08/25 06:13 Pulse Oximetry 98 01/08/25 06:13 Temperature 36.6 C 01/08/25 06:13 Temperature Source Oral 01/08/25 06:13 Pulse 70 01/08/25 06:13 Respiratory Rate 16 01/08/25 06:13 Blood Pressure 115/81 01/08/25 06:13 Pulse Oximetry 98 01/08/25 06:13 Pain Level 1 01/08/25 06:18 Medical Decision Making This is a pleasant 29-year-old female who is a G4, P1 with a history of diabetes mellitus type 2, renal tubular acidosis, an ectopic , twins with a miscarriage, and miscarriage in general, who is be negative for her blood type, who presents today for evaluation of vaginal bleeding. She is currently between 6 and 8 weeks . Last night she developed some mild cramping, and then this morning at around 4 AM she noticed some bright red blood when she was wiping. She denies any significant cramping at this time. She denies fever or chills. She denies seeing any large clots. Last episode of intercourse was 5 days ago. And there was no bleeding or pain at that time. No other complaints at this time. No other modifying factors. Patient has received RhoGAM in the past. Physical exam demonstrates a closed cervix, a pinprick of pink blood on the tip of the glove, but no clots or bright red blood otherwise. No abdominal tenderness. Ultrasound shows what appears to be pole or components of conception in the uterus. No heart rate can be actively measured, however on very close inspection there appears to be a slight cardiac flutter. With the patient's Rh status, we will give RhoGAM here. Patient is B-. We will recommend close obstetrics follow-up. Recommend pelvic rest. At this time with no continued pain, symptomatology appears inconsistent with ectopic , discussed red flags for which to return. I have extensively reviewed the treatment plan and discharge instructions with the patient. I have addressed all patient concerns at this time. The patient was made aware of what symptoms to monitor for that would warrant a return to the emergency department. Discussed the plan with the patient, they demonstrate verbal understanding and agreement with our assessment and plan at this time. The documentation in this chart was dictated using [employer] dictation software. Please excuse any dictation errors. PFSH All Active Problems (Updated 01/08/25 @ 06:49 by Deonte Law, ) Threatened miscarriage (Acute) History of miscarriage (Acute) (Acute) GERD (gastroesophageal reflux disease) (Chronic) GERD with esophagitis (Acute) Sepsis (Acute) URI (upper respiratory infection) (Acute) Meningismus (Acute) Leukocytosis (Acute) Hypophosphatemia (Acute ~10/07/23) Type 2 diabetes mellitus without complications (Acute) w/out long-term current use of insulin Stage 3a chronic kidney disease (CKD) (Acute 10/07/23) Depression (Chronic) Rh negative state in antepartum period (Acute) Distal renal tubular acidosis (Chronic) Hypokalemia due to loss of potassium (Acute) Amenorrhea (Acute) Migraine with aura (Acute) GERD (gastroesophageal reflux disease) (Chronic) Other specified diabetes mellitus with hyperglycemia (Acute) 09/12/21 [facility] [place] Acute hypokalemia (Acute) DB positive (Acute) Blunt chest trauma (Acute) Acidosis, renal tubular (Acute) Medical History (Updated 01/08/25 @ 06:49 by Deonte Law DO) Diabetes mellitus Type 2 Spotting affecting in first trimester Constipation, unspecified Patient desires (~03/2022) Late menses Chronic kidney disease, stage 2 (mild) 07/06/2023 - GFR 60-89 mL/min Psoriasis Neck abscess Cellulitis of neck Hx of ectopic Surgical History Hx of dilation and curettage H/O laparoscopy 2019 ectopic , failed MTX Previous section 11/01/19 for breech Family History Father Well adult Mother Well adult Maternal Grandmother Thyroid disease Social History (Updated 12/29/24 @ 10:03 by Argenis Reyes CMA) Smoking/Tobacco Use Status: Never Smoking risk assessment performed?: Yes Alcohol Intake: never Drug use: Never Substance use type: does not use Adopted: No Caregiver/Support person: No Foster care: No Household members: spouse and children Housing: house Number of Children: 1 Communication Needs: None Education Level: high school Pets and animals: Yes Pets and animals: cat(s) and dog(s) Sexually active: Yes Do you think of yourself as: straight/heterosexual Current gender identity: female What is your relationship status?: How often do you talk on the phone with friends or family?: twice per week How often do you get together with friends or relatives?: twice per week Do you belong to any clubs or organized social groups?: no Panel score (0-1 are the most socially isolated patients): 2 What type of physical activity do you participate in: additional Details: Working outside all day Duration: > 90 minutes/day Frequency: 5-6 times per week Seatbelt use: sometimes Helmet use: Yes Helmet use: sometimes Do you feel safe at home: Yes Do you feel safe in your relationship?: Yes History History 3 Para Hx # Term Pregnancies 1 Multiple births Hx # Pregnancies Ectopic pregnancies 1 AB induced Hx Number of Living Children 1 AB spontaneous Past Pregnancies Del. Date GA/Weeks # Preg Succ Route Wgt Sex Labor Lgth Anesthesia Location Prov Complic 06/21/18 11/01/19 38 4280.778 g Female [facility] Delivery Date: 06/21/18 Last Updated by: Yuko Hatfield MD Ectopic . Laparoscopy s/p failed MTX. Exact date unknown - sometime early 2018 Delivery Date: 11/01/19 Last Updated by: Marie Norwood CNM Breech presentation, Vanishing twin, Insulin controlled gestational diabetes. Gestational hypertension. [place], transferred to [facility] [place] [facility] Exam (ED) Limited OB Exam DATE OF EXAM:: 01/08/25 TIME OF EXAM:: 06:47 PROVIDER THAT PERFORMED THE STUDY: Deonte Law IS THIS A REPEAT EXAM DURING THIS ENCOUNTER: No Type of Exam: Pelvic OB Trans Abdominal REASON FOR EXAM: Vaginal Bleeding VISUALIZED STRUCTURES: Poll, Gestational sac and Uterus PERTINENT FINDINGS/IMPRESSION: poll Exam Complete.
[2025-01-08] MEDS: RHO(D) Immune Globulin 1,500 UNIT Syringe 1500 UNIT IM (07:37)
[2025-01-08 07:40] VITALS: BP 120/62; PULSE 71; RESP 16; O2SAT 100
== END 2025-01-08 07:55 | disposition home or self-care (01) ==
PROVIDERS: Emergency Provider Student in an Organized Health Care Education/Training Program; PCP Family Medicine
DX: O20.0 Threatened abortion (principal); O24.111 Pre-existing type 2 diabetes mellitus, in pregnancy, first trimester; Z87.59 Personal history of other complications of pregnancy, childbirth and the puerperium; Z3A.01 Less than 8 weeks gestation of pregnancy
CPT/HCPCS: 76815; 86850; 86900; 86901; 90384; 96372; 99284; J2790; 99283

== ENCOUNTER 2025-01-25 04:41 | Outpatient (CLI) | payer MEDICAID, SELFPAY | END 2025-01-25 04:42 | disposition home or self-care (01) | LOC: LBO 04:41 | PROVIDERS: PCP Family Medicine; Visit Provider Family Medicine | DX: E11.9 Type 2 diabetes mellitus without complications (principal) | CPT/HCPCS: 36415; 82985 ==

== ENCOUNTER 2025-02-21 11:30 | Outpatient (REF) | payer MEDICAID, SELFPAY ==
[2025-02-22 11:33] LABS: Chlamydia Result Negative (Negative); GC Result Negative (Negative)
== END 2025-02-21 11:31 | disposition home or self-care (01) ==
LOC: LBN 11:30
PROVIDERS: PCP Family Medicine; Visit Provider Advanced Practice Midwife
DX: Z34.91 Encounter for supervision of normal pregnancy, unspecified, first trimester (principal)
CPT/HCPCS: 87491; 87591; 87086

== ENCOUNTER 2025-02-21 12:52 | Outpatient (CLI) | payer MEDICAID, SELFPAY ==
[2025-02-21 11:33] LABS: Abs Immature Grans 0.31 10^3/uL (0.0-0.06); HCT 46.3 % (36.0-46.0); HGB 15.2 g/dL (11.2-15.7); Immature Grans % 1.8 %; MCH 28.7 pg (27.0-33.0); MCHC 32.8 % (32.0-36.0); MCV 87 fL (80-95); MPV 9.8 fL (8.0-11.0); Platelet Count 242 10^3/uL (130-400); RBC 5.30 10^6/uL (3.93-5.22); RDW 13.6 % (11.7-14.6); RDW-SD 43.4 fL; WBC 17.05 10^3/uL (4.4-10.8)
[2025-02-21 12:32] LABS: ALT 27 U/L (14-59); AST 17 U/L (15-37); Albumin 4.0 g/dL (3.4-5.0); Alkaline Phosphatase 115 U/L (46-116); Anion Gap 12.5 mmol/L (3-11); BUN 23 mg/dL (7-18); Bilirubin, Total 0.4 mg/dL (0.2-1.0); CO2 21.5 mmol/L (21.0-32.0); Calcium 9.8 mg/dL (8.5-10.1); Chloride 103 mmol/L (98-107); Estimated GFR 69.32 (mL/min/1.73m2); Glucose 115 mg/dL (74-106); Sodium 137 mmol/L (136-145); TSH (W/Ref FT4) 1.61 uIU/mL (0.36-3.74); Total Protein 8.6 g/dL (6.4-8.2)
[2025-02-21 12:37] LABS: Potassium 2.6 mmol/L (3.5-5.1)
[2025-02-21 18:29] LABS: HIV-1/2 Ag & Ab Screen Negative (Negative)
[2025-02-21 20:12] LABS: Hepatitis C Ab w Rflx HCV PCR Negative (Negative)
[2025-02-22 10:07] LABS: Rubella IgG Ab (UVM) Positive (See Note)
[2025-02-25 16:21] LABS: Syphilis IgG w/Reflex Nonreactive (Nonreactive)
== END 2025-02-21 12:53 | disposition home or self-care (01) ==
LOC: LBO 12:52
PROVIDERS: PCP Family Medicine; Visit Provider Advanced Practice Midwife
DX: Z34.91 Encounter for supervision of normal pregnancy, unspecified, first trimester (principal); Z83.49 Family history of other endocrine, nutritional and metabolic diseases
CPT/HCPCS: 36415; 80053; 86787; 86803; 86850; 86900; 86901; 87340; 87389; 84443; 85025; 86762; 86780; 86870

== ENCOUNTER 2025-03-06 10:27 | Outpatient (REF) | payer MEDICAID, SELFPAY | END 2025-03-06 10:28 | disposition home or self-care (01) | LOC: LBN 10:27 | PROVIDERS: PCP Family Medicine; Visit Provider Obstetrics & Gynecology | DX: Z34.91 Encounter for supervision of normal pregnancy, unspecified, first trimester (principal) | CPT/HCPCS: 87086; 87480; 87510; 87660 ==

== ENCOUNTER 2025-03-30 03:03 | Outpatient (CLI) | payer MEDICAID, SELFPAY ==
[2025-03-30 12:35] LABS: PROTEIN 32.8 mg/dL; Prot/Crea Ur Ratio 2.19
[2025-03-30 12:39] LABS: Anion Gap 11.2 mmol/L (3-11); BUN 20 mg/dL (7-18); CO2 21.8 mmol/L (21.0-32.0); Calcium 9.2 mg/dL (8.5-10.1); Chloride 104 mmol/L (98-107); Estimated GFR 62.45 (mL/min/1.73m2); Glucose 159 mg/dL (74-106); Potassium 3.0 mmol/L (3.5-5.1); Sodium 137 mmol/L (136-145)
== END 2025-03-30 03:04 | disposition home or self-care (01) ==
PROVIDERS: PCP Family Medicine; Visit Provider Student in an Organized Health Care Education/Training Program
DX: N18.31 Chronic kidney disease, stage 3a (principal); N25.89 Other disorders resulting from impaired renal tubular function
CPT/HCPCS: 36415; 80048; 82565; 84100; 84156

== ENCOUNTER 2025-05-21 13:46 | Outpatient (REF) | payer MEDICAID, SELFPAY | END 2025-05-21 13:47 | disposition home or self-care (01) | LOC: LBN 13:46 | PROVIDERS: PCP Family Medicine; Visit Provider Obstetrics & Gynecology | DX: Z34.92 Encounter for supervision of normal pregnancy, unspecified, second trimester (principal) | CPT/HCPCS: 87086 ==

== ENCOUNTER 2025-05-21 14:06 | Outpatient (CLI) | payer MEDICAID, SELFPAY ==
[2025-05-21 14:34] LABS: Abs Immature Grans 0.51 10^3/uL (0.0-0.06); HCT 45.1 % (36.0-46.0); HGB 15.0 g/dL (11.2-15.7); MCH 28.0 pg (27.0-33.0); MCHC 33.3 % (32.0-36.0); MCV 84 fL (80-95); MPV 9.3 fL (8.0-11.0); Platelet Count 270 10^3/uL (130-400); RBC 5.36 10^6/uL (3.93-5.22); RDW 16.0 % (11.7-14.6); RDW-SD 45.3 fL; WBC 19.99 10^3/uL (4.4-10.8)
[2025-05-21 15:26] LABS: Anisocytosis 1+; Immature Grans % 0.0 %; Magnesium 2.2 mg/dL (1.6-2.6); Microcytosis 1+; Polychromasia Present
[2025-05-21 15:29] LABS: ALT 15 U/L (10-49); AST 13 U/L (<34); Albumin 4.2 g/dL (3.2-5.0); Alkaline Phosphatase 108 U/L (46-116); Anion Gap 11.8 mmol/L (3-11); BUN 27 mg/dL (9-23); Bilirubin, Total 0.30 mg/dL (0.2-1.2); CO2 16.2 mmol/L (20.0-31.0); Calcium 9.8 mg/dL (8.3-10.6); Chloride 107 mmol/L (98-107); Glucose 133 mg/dL (74-106); Potassium 3.4 mmol/L (3.5-5.1); Sodium 135 mmol/L (136-145); Total Protein 7.8 g/dL (5.7-8.2)
== END 2025-05-21 14:07 | disposition home or self-care (01) ==
LOC: LBO 14:06
PROVIDERS: PCP Family Medicine; Visit Provider Obstetrics & Gynecology
DX: O24.112 Pre-existing type 2 diabetes mellitus, in pregnancy, second trimester (principal); E11.9 Type 2 diabetes mellitus without complications
CPT/HCPCS: 36415; 80053; 82985; 83735; 85025

== ENCOUNTER 2025-06-04 12:30 | Outpatient (REF) | payer MEDICAID, SELFPAY ==
[2025-06-04 13:58] LABS: Sodium, Urine 38 mmol/L
[2025-06-04 14:05] LABS: Prot/Crea Ur Ratio 2.38 mg/mg Cr
[2025-06-05 11:08] LABS: Calcium (Random Urine) 4.9 mg/dL (See Note)
== END 2025-06-04 12:31 | disposition home or self-care (01) ==
LOC: LBN 12:30
PROVIDERS: PCP Family Medicine; Visit Provider Obstetrics & Gynecology
DX: Z34.92 Encounter for supervision of normal pregnancy, unspecified, second trimester (principal); O14.92 Unspecified pre-eclampsia, second trimester; I10 Essential (primary) hypertension; N18.9 Chronic kidney disease, unspecified
CPT/HCPCS: 82340; 82565; 84156; 84300; 87086

== ENCOUNTER 2025-06-04 13:34 | Outpatient (CLI) | payer MEDICAID, SELFPAY ==
[2025-06-04 12:43] LABS: Abs Immature Grans 0.35 10^3/uL (0.0-0.06); HCT 39.4 % (36.0-46.0); HGB 13.1 g/dL (11.2-15.7); Immature Grans % 2.1 %; MCH 28.7 pg (27.0-33.0); MCHC 33.2 % (32.0-36.0); MCV 86 fL (80-95); MPV 9.7 fL (8.0-11.0); Platelet Count 264 10^3/uL (130-400); RBC 4.56 10^6/uL (3.93-5.22); RDW 16.7 % (11.7-14.6); RDW-SD 49.3 fL; WBC 16.33 10^3/uL (4.4-10.8)
[2025-06-04 13:41] LABS: ALT 17 U/L (10-49); AST 15 U/L (<34); Albumin 3.7 g/dL (3.2-5.0); Alkaline Phosphatase 85 U/L (46-116); Anion Gap 12.6 mmol/L (3-11); BUN 27 mg/dL (9-23); Bilirubin, Total 0.3 mg/dL (0.2-1.2); CO2 16.4 mmol/L (20.0-31.0); Calcium 9.0 mg/dL (8.3-10.6); Chloride 112 mmol/L (98-107); Glucose 77 mg/dL (74-106); Potassium 3.3 mmol/L (3.5-5.1); Sodium 141 mmol/L (136-145); Total Protein 6.6 g/dL (5.7-8.2)
== END 2025-06-04 13:35 | disposition home or self-care (01) ==
LOC: LBO 13:34
PROVIDERS: PCP Family Medicine; Visit Provider Obstetrics & Gynecology
DX: I10 Essential (primary) hypertension; O26.893 Other specified pregnancy related conditions, third trimester; Z67.91 Unspecified blood type, Rh negative; Z34.93 Encounter for supervision of normal pregnancy, unspecified, third trimester
CPT/HCPCS: 36415; 80053; 86850; 86900; 86901; 90384; 85025